=== PATIENT | female | born 1940 | race Caucasian/White ===

== ENCOUNTER 2018-02-17 14:40 | Inpatient (IN) | payer MEDICARE, OTHER ==
[~2018-02-17] VITALS: Ht 160 cm; Wt 63.5 kg
[2018-02-17 14:48] VITALS: BP 128/78
[2018-02-17] MEDS ORDERED: Morphine Sulfate 4mg/ml Inj IVP ONE (15:00)
--- NOTE | 2018-02-17 15:02 | Emergency Room Report ---
History of Present Illness General Chief Complaint: Vomiting Source: EMS Present Illness HPI Patient presents from nursing facility with reports of several vomiting episodes Patient is unfortunate patient with metastatic breast cancer Is DO NOT RESUSCITATE status Patient vomited 3 times throughout the day today brownish type material There is no complaints of diarrhea Patient herself essentially nods yes and no and does not answer further questions makes direct eye contact History of present illness is somewhat limited patient pointed to her epigastric discomfort when questioned regarding pain Allergies: Coded Allergies: PENICILLINS (Verified Allergy, Unknown, 02/17/18) Uncoded Allergies: SULFA (Allergy, Unknown, 02/17/18) Patient History Past Medical History: see triage record Pertinent Family History: none Reviewed Nursing Documentation: PMH: Agreed; PSxH: Agreed Nursing Documentation-PMH Hx Hypertension: Yes Hx Neurological Problems: Yes - schizo, bipolar Review of Systems All Other Systems: negative except mentioned in HPI Physical Exam Vital Signs Date Time Temp Pulse Resp B/P (MAP) Pulse Ox O2 Delivery O2 Flow Rate FiO2 02/17/18 14:34 98.2 92 16 128/78 94 Room Air 98.2 Sp02 EP Interpretation: reviewed, normal General Appearance: no apparent distress - However appears weak Head: normocephalic, atraumatic ENT: dry mucus membranes Neck: full range of motion, supple Respiratory: lungs clear Cardiovascular #1: regular rate, rhythm, no edema Gastrointestinal: non tender, soft Genitourinary: no CVA tenderness Musculoskeletal: other - Patient moves both upper extremities equally however does not follow commands and difficult to obtain full exam Neurologic: responsive - Patient makes eye contact appears to understand however is minimally verbal Skin: other - Poor skin turgor Lymphatic: no adenopathy Medical Decision Making Diagnostic Impression: Primary Impression: Vomiting Additional Impression: Dehydration ER Course Patient is a fairly complex patient with multiple differential to consideration including but not limited to cardiac cardiopulmonary and vascular emergencies Gastrointestinal pathology also entertained Patient somewhat difficult Pulling IVs out Trying to hit staff Patient did have x-rays obtained which did not show any obvious acute pathology white blood cell count was mildly elevated patient will require further inpatient care At this time difficult to obtain urine sample and will continue attempt as inpatient Labs Test 02/17/18 15:13 02/17/18 17:19 White Blood Count 14.3 K/UL (4.8-10.8) Red Blood Count 4.82 M/UL (4.20-5.40) Hemoglobin 15.6 G/DL (12.0-16.0) Hematocrit 44.2 % (37.0-47.0) Mean Corpuscular Volume 92 FL (80-99) Mean Corpuscular Hemoglobin 32.4 PG (27.0-31.0) Mean Corpuscular Hemoglobin Concent 35.3 G/DL (32.0-36.0) Red Cell Distribution Width 11.7 % (11.6-14.8) Platelet Count 384 K/UL (150-450) Mean Platelet Volume 6.7 FL (6.5-10.1) Neutrophils (%) (Auto) 76.4 % (45.0-75.0) Lymphocytes (%) (Auto) 15.5 % (20.0-45.0) Monocytes (%) (Auto) 6.8 % (1.0-10.0) Eosinophils (%) (Auto) 0.4 % (0.0-3.0) Basophils (%) (Auto) 1.0 % (0.0-2.0) Sodium Level 140 MMOL/L (136-145) Potassium Level 4.6 MMOL/L (3.5-5.1) Chloride Level 104 MMOL/L (98-107) Carbon Dioxide Level 25 MMOL/L (21-32) Anion Gap 11 mmol/L (5-15) Blood Urea Nitrogen 22 mg/dL (7-18) Creatinine 0.7 MG/DL (0.55-1.30) Estimat Glomerular Filtration Rate mL/min (>60) Glucose Level 109 MG/DL (74-106) Calcium Level 9.5 MG/DL (8.5-10.1) Total Bilirubin 0.3 MG/DL (0.2-1.0) Aspartate Amino Transf (AST/SGOT) 29 U/L (15-37) Alanine Aminotransferase (ALT/SGPT) 53 U/L (12-78) Alkaline Phosphatase 261 U/L (46-116) Total Creatine Kinase 62 U/L (26-308) Creatine Kinase MB 0.8 NG/ML (0.0-3.6) Creatine Kinase MB Relative Index 1.2 Troponin I 0.000 ng/mL (0.000-0.056) Total Protein 7.7 G/DL (6.4-8.2) Albumin 3.1 G/DL (3.4-5.0) Globulin 4.6 g/dL Albumin/Globulin Ratio 0.7 (1.0-2.7) Lipase 278 U/L (73-393) Urine Color Yellow Urine Appearance Slightly cloudy Urine pH 5 (4.5-8.0) Urine Specific [place] 1.020 (1.005-1.035) Urine Protein 2+ (NEGATIVE) Urine Glucose (UA) Negative (NEGATIVE) Urine Ketones 1+ (NEGATIVE) Urine Occult Blood 4+ (NEGATIVE) Urine Nitrite Negative (NEGATIVE) Urine Bilirubin Negative (NEGATIVE) Urine Urobilinogen 1 MG/DL (0.0-1.0) Urine Leukocyte Esterase 3+ (NEGATIVE) Urine RBC 5-10 /HPF (0 - 2) Urine WBC 10-15 /HPF (0 - 2) Urine Squamous Epithelial Cells Few /LPF (NONE/OCC) Urine Bacteria Few /HPF (NONE) Urine Mucus Moderate /LPF (NONE/OCC) EKG Diagnostic Results Rate: normal Rhythm: NSR ST Segments: no acute changes Rhythm Strip Diag. Results EP Interpretation: yes Rate: 77 Rhythm: NSR, no PVC's, no ectopy Chest X-Ray Diagnostic Results Chest X-Ray Diagnostic Results : Chest X-Ray Ordered: Yes # of Views/Limited/Complete: 1 View Indication: Chest Pain EP Interpretation: Yes Interpretation: no consolidation, no effusion, no pneumothorax Impression: No acute disease Electronically Signed by: Kyle Perry DO Other X-Ray Diagnostic Results Other X-Ray Diagnostic Results : X-Ray ordered: Abdominal ex # of Views/Limited Vs Complete: 2 View Indication: Pain EP Interpretation: Yes Interpretation: no dislocation, no soft tissue swelling, no fractures, nonspecific bowel gas Impression: No acute disease Electronically Signed by: Kyle Perry DO Last Vital Signs Date Time Temp Pulse Resp B/P (MAP) Pulse Ox O2 Delivery O2 Flow Rate FiO2 02/17/18 14:48 98.2 92 16 128/78 94 Room Air 98.2 Status: improved Disposition: ADMITTED INPATIENT Condition: Serious Kyle Perry DO Feb 17, 2018 15:02
[2018-02-17 15:31] LABS: EOSINOPHILS % (AUTO) 0.4 % (0.0-3.0); HEMATOCRIT 44.2 % (37.0-47.0); HEMOGLOBIN 15.6 G/DL (12.0-16.0); LYMPHOCYTES % (AUTO) 15.5 % (20.0-45.0); MEAN CORPUSCULAR VOLUME 92 FL (80-99); MONOCYTES % (AUTO) 6.8 % (1.0-10.0); NEUTROPHILS % (AUTO) 76.4 % (45.0-75.0); PLATELET COUNT 384 K/UL (150-450); RED BLOOD COUNT 4.82 M/UL (4.20-5.40); RED CELL DISTRIBUTION WIDTH 11.7 % (11.6-14.8); WHITE BLOOD COUNT 14.3 K/UL (4.8-10.8)
[2018-02-17 15:56] LABS: ANION GAP 11 mmol/L (5-15); BLOOD UREA NITROGEN 22 mg/dL (7-18); CALCIUM 9.5 MG/DL (8.5-10.1); CARBON DIOXIDE 25 MMOL/L (21-32); CHLORIDE 104 MMOL/L (98-107); CREATININE 0.7 MG/DL (0.55-1.30); POTASSIUM 4.6 MMOL/L (3.5-5.1); SODIUM 140 MMOL/L (136-145)
[2018-02-17 16:09] LABS: ALANINE AMINOTRANSFERASE 53 U/L (12-78); ALBUMIN 3.1 G/DL (3.4-5.0); ALBUMIN/GLOBULIN RATIO 0.7 (1.0-2.7); ALKALINE PHOSPHATASE 261 U/L (46-116); ASPARTATE AMINO TRANSFERASE 29 U/L (15-37); BILIRUBIN,TOTAL 0.3 MG/DL (0.2-1.0); CKMB 0.8 NG/ML (0.0-3.6); CREATINE KINASE 62 U/L (26-308)
[2018-02-17 17:22] VITALS: BP 124/76
--- NOTE | 2018-02-17 17:25 | Diagnostic Imaging Report ---
Indication: Abdominal pain Technique: Supine view of the abdomen Comparison: none Findings: Bowel gas pattern is unremarkable. There is a gastrostomy. There is bilateral hip hardware. Calcifications in the left side of the pelvis likely represent old degenerated fibroids. A surgical clip or T-fastener is seen in the mid abdomen, likely related to prior gastrostomy placement Impression: No acute process. Findings as noted
--- NOTE | 2018-02-17 17:26 | Diagnostic Imaging Report ---
Indication: Chest pain Technique: One view of the chest Comparison: none Findings: The lungs and pleural spaces are clear. Right hemidiaphragm is elevated. Surgical clips are seen in the right axilla. There is a right chest port catheter, tip projecting at level of the innominate venous confluence. Impression: No acute process. Findings as noted
[2018-02-17 17:36] LABS: APPEARANCE,URINE SLIGHTLY CLOUDY; BILIRUBIN, URINE NEGATIVE (NEGATIVE); GLUCOSE, URINE (UA) NEGATIVE (NEGATIVE); KETONES,URINE 1+ (NEGATIVE); LEUKOCYTE ESTERASE ,URINE 3+ (NEGATIVE); NITRITE,URINE NEGATIVE (NEGATIVE); PH,URINE 5 (4.5-8.0); PROTEIN,URINE 2+ (NEGATIVE); UROBILINOGEN,URINE 1 MG/DL (0.0-1.0)
[2018-02-17 17:41] LABS: COLOR,URINE YELLOW
[2018-02-17] MEDS ORDERED: NEURONTIN100 MG ORAL (17:41)
[2018-02-17] MEDS ORDERED: COLACE100 MG GT (17:41)
[2018-02-17] MEDS ORDERED: FLEET ENEMA133 ML RECTAL (17:41)
[2018-02-17] MEDS ORDERED: ARICEPT10 MG GT (17:41)
[2018-02-17] MEDS ORDERED: TYLENOL EXTRA500 MG GT (17:41)
[2018-02-17] MEDS ORDERED: ACETAMINOPHEN325 M1 ORAL (17:41)
[2018-02-17] MEDS ORDERED: MILK OF MA400 MG/51 GT (17:41)
[2018-02-17] MEDS ORDERED: MULTIVITAMINS1 EAC2 GT (17:41)
[2018-02-17 17:45] VITALS: BP 120/78
[2018-02-17 19:00] VITALS: BP 109/69
[2018-02-17 20:17] VITALS: BP 109/68
[2018-02-17] MEDS: Heparin 5000 units/ml inj SUBQ SCH (23:18)
[2018-02-17] MEDS: 1/2NS w/KCl 20mEq 1000ml 1,000 ML IV SCH (23:19)
[2018-02-18 07:18] LABS: BASOPHILS % (AUTO) 0.8 % (0.0-2.0); EOSINOPHILS % (AUTO) 0.5 % (0.0-3.0); HEMATOCRIT 42.8 % (37.0-47.0); HEMOGLOBIN 14.6 G/DL (12.0-16.0); LYMPHOCYTES % (AUTO) 14.3 % (20.0-45.0); MEAN CORPUSCULAR VOLUME 94 FL (80-99); MONOCYTES % (AUTO) 7.8 % (1.0-10.0); NEUTROPHILS % (AUTO) 76.6 % (45.0-75.0); PLATELET COUNT 391 K/UL (150-450); RED BLOOD COUNT 4.57 M/UL (4.20-5.40); RED CELL DISTRIBUTION WIDTH 11.4 % (11.6-14.8); WHITE BLOOD COUNT 11.3 K/UL (4.8-10.8)
[2018-02-18 07:43] LABS: ANION GAP 7 mmol/L (5-15); BLOOD UREA NITROGEN 22 mg/dL (7-18); CALCIUM 9.3 MG/DL (8.5-10.1); CARBON DIOXIDE 29 MMOL/L (21-32); CHLORIDE 107 MMOL/L (98-107); CREATININE 0.9 MG/DL (0.55-1.30); POTASSIUM 4.1 MMOL/L (3.5-5.1); SODIUM 143 MMOL/L (136-145)
--- NOTE | 2018-02-18 08:45 | History and Physical Report ---
DATE OF ADMISSION: 02/17/2018 CHIEF COMPLAINT: Vomiting. HISTORY OF PRESENT ILLNESS: This is a 77-year-old female from [facility], who has history of metastatic breast cancer and is a DNR. The patient in fact was on hospice for almost two years. Despite that, the patient has been surviving. The patient started having a coffee-ground emesis 3 times. She is transferred to this hospital for further evaluation and management. PAST MEDICAL HISTORY: 1. Metastatic breast cancer. 2. Extreme cachexia secondary to the above. 3. History of a stage IV sacral ulcer. 4. Anxiety disorder. 5. Gastroesophageal reflux disease. 6. Status post G-tube. 7. Bipolar disorder. 8. Hypertensive cardiovascular disease. MEDICATIONS: Aricept, Colace, Fleet enema p.r.n., milk of magnesia, multivitamins, Neurontin, and Tylenol p.r.n. ALLERGIES: No known drug allergies. FAMILY HISTORY: Unable to obtain secondary to mental status. SOCIAL HISTORY: Unable to obtain secondary to mental status REVIEW OF SYSTEMS: Unable to obtain secondary to mental status. PHYSICAL EXAMINATION: GENERAL: This is an elderly cachectic female, who is in no acute distress. VITAL SIGNS: Blood pressure 109/68, pulse 83, respirations 20, and temperature 98 axillary. HEENT: The head is normocephalic and atraumatic. Pupils are equal, round, and reactive to light and accommodation consensually. NECK: Supple. Trachea midline. There was no lymphadenopathy or thyromegaly. LUNGS: Clear to auscultation and percussion. BREASTS: She has left breast lump. ABDOMEN: Scaphoid, soft, and nontender. She has a G-tube. EXTREMITIES: She has contractures in all joints. She has advanced muscle wasting. NEUROLOGIC: She is alert and responsive. She is confused. There were no lateralizing signs. LABORATORY AND ANCILLARY DATA: CBC shows white count on admission 14,300, today 11,300, hematocrit stable, on admission 44 and today 42, and platelet count 391,000. Chemistries essentially within normal limits except alkaline phosphatase 261. Albumin on admission was 3.1. IMAGING REPORTS: Abdominal x-ray, no acute finding. ASSESSMENT: 1. Nausea and vomiting with the coffee-grounds emesis most likely due to gastritis. 2. Metastatic breast cancer. 3. Extreme cachexia secondary to the above. 4. History of a stage IV sacral ulcer. 5. Anxiety disorder. 6. Gastroesophageal reflux disease. 7. Status post G-tube. 8. Bipolar disorder. 9. Hypertensive cardiovascular disease. PLAN: 1. Keep NPO. 2. GI consult. 3. PPI. 4. Keep on intravenous fluids. 5. Keep DNR status. Kai Ramírez M.D. DR: FORREST JOB#: [id number] CC:
[2018-02-18] MEDS ORDERED: Pantoprazole Inj IVP SCH (09:00)
[2018-02-18] MEDS: Heparin 5000 units/ml inj SUBQ SCH ×2 (09:37→22:09)
--- NOTE | 2018-02-18 11:16 | GI Initial Consult Note ---
History of Present Illness General Date patient seen: Feb 18, 2018 Time patient seen: 11:00 Reason for Hospitalization: Vomiting Referring physician: AGUILAR DESOUZA Reason for Consultation: N/V Present Illness HPI Patient presents from nursing facility with reports of several vomiting episodes Patient is unfortunate patient with metastatic breast cancer Is DO NOT RESUSCITATE status Patient vomited 3 times throughout the day today brownish type material There is no complaints of diarrhea Patient herself essentially nods yes and no and does not answer further questions makes direct eye contact History of present illness is somewhat limited patient pointed to her epigastric discomfort when questioned regarding pain GI consulted for N/V, reports of coffee ground emesis. ROS limited, psychiatric history. Pt seen, awake alert NAD with no active s/sx of N/V/D. KUB negative. I performed a gastric lavage at bedside, negative. Patient G Tube dependent. Home Meds Reported Medications Acetaminophen* (ACETAMINOPHEN 325MG TABLET*) 325 Mg Tablet, 650 MG ORAL Q4H PRN for Mild Pain (Pain Scale 1-3), TAB 02/17/18 Acetaminophen* (TYLENOL EXTRA STRENGTH*) 500 Mg Tablet, 1000 MG GT Q4HR PRN for Mild Pain/Temp > 100.5, TAB 0 Refills 02/17/18 Gabapentin* (NEURONTIN*) 100 Mg Capsule, 200 MG ORAL BID, CAP 02/17/18 Multivitamins* (MULTIVITAMINS*) 1 Each Tablet, 1 TAB GT DAILY, TAB 0 Refills 02/17/18 Magnesium Hydroxide* (MILK OF MAGNESIA*) 400 Mg/5 Ml Oral.susp, 30 ML GT DAILY PRN for Constipation, ML 02/17/18 Na Phos,M-B/Na Phos,Di-Ba* (FLEET ENEMA*) 133 Ml Enema, 133 ML RECTAL DAILY PRN for Constipation, ML 0 Refills 02/17/18 Docusate Sodium* (COLACE*) 100 Mg Capsule, 100 MG GT TWICE A DAY, CAP 02/17/18 Donepezil Hcl* (ARICEPT*) 10 Mg Tablet, 10 MG GT DAILY, TAB 02/17/18 Med list reviewed/reconciled: Yes Allergies: Coded Allergies: PENICILLINS (Verified Allergy, Unknown, 02/17/18) Uncoded Allergies: SULFA (Allergy, Unknown, 02/17/18) Patient History Limited by: medical condition History Provided By: Medical Record PMH Narrative Past Medical History: see triage record Pertinent Family History: none Reviewed Nursing Documentation: PMH: Agreed; PSxH: Agreed Nursing Documentation-PMH Hx Hypertension: Yes Hx Neurological Problems: Yes - schizo, bipolar Review of Systems All Other Systems: limited Physical Exam Vital Signs Date Time Temp Pulse Resp B/P (MAP) Pulse Ox O2 Delivery O2 Flow Rate FiO2 02/17/18 14:34 98.2 92 16 128/78 94 Room Air 98.2 Sp02 EP Interpretation: reviewed, normal Labs Laboratory Tests Test 02/17/18 15:13 02/17/18 17:19 02/18/18 05:50 White Blood Count 14.3 K/UL (4.8-10.8) H 11.3 K/UL (4.8-10.8) H Red Blood Count 4.82 M/UL (4.20-5.40) 4.57 M/UL (4.20-5.40) Hemoglobin 15.6 G/DL (12.0-16.0) 14.6 G/DL (12.0-16.0) Hematocrit 44.2 % (37.0-47.0) 42.8 % (37.0-47.0) Mean Corpuscular Volume 92 FL (80-99) 94 FL (80-99) Mean Corpuscular Hemoglobin 32.4 PG (27.0-31.0) H 32.0 PG (27.0-31.0) H Mean Corpuscular Hemoglobin Concent 35.3 G/DL (32.0-36.0) 34.1 G/DL (32.0-36.0) Red Cell Distribution Width 11.7 % (11.6-14.8) 11.4 % (11.6-14.8) L Platelet Count 384 K/UL (150-450) 391 K/UL (150-450) Mean Platelet Volume 6.7 FL (6.5-10.1) 7.3 FL (6.5-10.1) Neutrophils (%) (Auto) 76.4 % (45.0-75.0) H 76.6 % (45.0-75.0) H Lymphocytes (%) (Auto) 15.5 % (20.0-45.0) L 14.3 % (20.0-45.0) L Monocytes (%) (Auto) 6.8 % (1.0-10.0) 7.8 % (1.0-10.0) Eosinophils (%) (Auto) 0.4 % (0.0-3.0) 0.5 % (0.0-3.0) Basophils (%) (Auto) 1.0 % (0.0-2.0) 0.8 % (0.0-2.0) Sodium Level 140 MMOL/L (136-145) 143 MMOL/L (136-145) Potassium Level 4.6 MMOL/L (3.5-5.1) 4.1 MMOL/L (3.5-5.1) Chloride Level 104 MMOL/L (98-107) 107 MMOL/L (98-107) Carbon Dioxide Level 25 MMOL/L (21-32) 29 MMOL/L (21-32) Anion Gap 11 mmol/L (5-15) 7 mmol/L (5-15) Blood Urea Nitrogen 22 mg/dL (7-18) H 22 mg/dL (7-18) H Creatinine 0.7 MG/DL (0.55-1.30) 0.9 MG/DL (0.55-1.30) Estimat Glomerular Filtration Rate mL/min (>60) mL/min (>60) Glucose Level 109 MG/DL (74-106) H 98 MG/DL (74-106) Calcium Level 9.5 MG/DL (8.5-10.1) 9.3 MG/DL (8.5-10.1) Total Bilirubin 0.3 MG/DL (0.2-1.0) Aspartate Amino Transf (AST/SGOT) 29 U/L (15-37) Alanine Aminotransferase (ALT/SGPT) 53 U/L (12-78) Alkaline Phosphatase 261 U/L (46-116) H Total Creatine Kinase 62 U/L (26-308) Creatine Kinase MB 0.8 NG/ML (0.0-3.6) Creatine Kinase MB Relative Index 1.2 Troponin I 0.000 ng/mL (0.000-0.056) Total Protein 7.7 G/DL (6.4-8.2) Albumin 3.1 G/DL (3.4-5.0) L Globulin 4.6 g/dL Albumin/Globulin Ratio 0.7 (1.0-2.7) L Lipase 278 U/L (73-393) Urine Color Yellow Urine Appearance Slightly cloudy Urine pH 5 (4.5-8.0) Urine Specific [place] 1.020 (1.005-1.035) Urine Protein 2+ (NEGATIVE) H Urine Glucose (UA) Negative (NEGATIVE) Urine Ketones 1+ (NEGATIVE) H Urine Occult Blood 4+ (NEGATIVE) H Urine Nitrite Negative (NEGATIVE) Urine Bilirubin Negative (NEGATIVE) Urine Urobilinogen 1 MG/DL (0.0-1.0) H Urine Leukocyte Esterase 3+ (NEGATIVE) H Urine RBC 5-10 /HPF (0 - 2) H Urine WBC 10-15 /HPF (0 - 2) H Urine Squamous Epithelial Cells Few /LPF (NONE/OCC) Urine Bacteria Few /HPF (NONE) Urine Mucus Moderate /LPF (NONE/OCC) H Magnesium Level 2.1 MG/DL (1.8-2.4) General Appearance: well appearing, no apparent distress, alert Head: normocephalic EENT: PERRL/EOMI, normal ENT inspection Neck: supple Respiratory: normal breath sounds, no respiratory distress Cardiovascular: normal rate Gastrointestinal: normal inspection, non tender, soft, normal bowel sounds, non -distended, gt - c/d/i Rectal: deferred Genitourinary: no CVA tenderness Musculoskeletal: normal inspection, back normal Skin: normal inspection, normal color, no rash, warm/dry, palpation normal, well hydrated Lymphatic: normal inspection, no adenopathy Current Medications Current Medications Medications (Trade) Dose Ordered Sig/Kel Route PRN Reason Start Time Stop Time Status Last Admin Dose Admin Heparin Sodium (Porcine) (Heparin 5000 units/ml) 5,000 units EVERY 12 HOURS SUBQ 02/17/18 22:30 03/19/18 22:29 02/18/18 09:37 Ondansetron HCl (Zofran) 4 mg Q6H PRN IVP Nausea & Vomiting 02/17/18 22:00 03/19/18 21:59 Pantoprazole (Protonix) 40 mg DAILY IVP 02/18/18 09:00 03/20/18 08:59 02/18/18 09:32 Sodium 1,000 ml @ 75 mls/hr [id number] IV 02/17/18 22:00 03/19/18 21:59 02/17/18 23:19 GI: Plan Problems: (1) Severe malnutrition (2) G tube feedings (3) Coffee ground emesis (4) Dehydration (5) Vomiting Plan GTF dependent gastric lavage done at bedside to r/o any UGIB >> negative stable H&H supportive care low dose reglan 5mg ATC okay to resume feedings per RD ppi daily zofran prn IV hydration + electrolyte correction fu labs Discussed with Dr. John. Thank you for this patient referral, we will follow. The patient was seen and examined at bedside and all new and available data was reviewed in the patients chart. I agree with the above findings, impression and plan. (Patient seen earlier today. Signature stamp does not reflect patient encounter time.). - MD Luann [facility] SENIOR ANALYST DEVELOPER Feb 18, 2018 11:16
[2018-02-18] MEDS: 1/2NS w/KCl 20mEq 1000ml 1,000 ML IV SCH (13:18)
[2018-02-18] MEDS: Metoclopramide 10mg/2ml Inj IVP SCH ×2 (14:24→22:08)
--- NOTE | 2018-02-18 16:56 | Cardiology Report ---
APPROVED REPORT EKG Measurement Heart [id number] ID [id number] Sinus tachycardia with premature atrial complexes Left axis deviation Inferior infarct, age undetermined Anterior infarct, age undetermined Abnormal ECG
[2018-02-18] MEDS: Pantoprazole Inj IVP SCH (18:33)
[2018-02-18 20:00] VITALS: BP 150/96
[2018-02-19] VITALS: BP 140/76
[2018-02-19] MEDS: 1/2NS w/KCl 20mEq 1000ml 1,000 ML IV SCH ×2 (01:00→14:16)
[2018-02-19 04:00] VITALS: BP 149/84
[2018-02-19] MEDS: Metoclopramide 10mg/2ml Inj IVP SCH ×2 (06:00→14:17)
[2018-02-19 08:00] VITALS: BP 117/74
--- NOTE | 2018-02-19 08:30 | General Progress Note ---
Assessment/Plan Problem List: (1) Vomiting ICD Codes: R11.10 - Vomiting, unspecified SNOMED: 334498327 (2) Dehydration ICD Codes: E86.0 - Dehydration SNOMED: 48920632 (3) Severe malnutrition ICD Codes: E43 - Unspecified severe protein-calorie malnutrition SNOMED: 21127634 (4) Coffee ground emesis ICD Codes: K92.0 - Hematemesis SNOMED: 75244038, 818076161 (5) G tube feedings ICD Codes: Z93.1 - Gastrostomy status SNOMED: 495769943, 003010544 Assessment/Plan GTF local GT care ppi stable H&H hold GI procedures for now reglan will change the GT today or tomorrow Subjective ROS Limited/Unobtainable: No Allergies: Coded Allergies: PENICILLINS (Verified Allergy, Unknown, 02/17/18) Uncoded Allergies: SULFA (Allergy, Unknown, 02/17/18) Objective Last 24 Hour Vital Signs Date Time Temp Pulse Resp B/P (MAP) Pulse Ox O2 Delivery O2 Flow Rate FiO2 02/19/18 04:00 97.4 104 21 149/84 (105) 97 97.4 02/19/18 00:00 98.1 103 19 140/76 (97) 97 98.1 02/18/18 21:00 Room Air 02/18/18 20:00 98.4 106 20 150/96 (114) 98 98.4 02/18/18 09:00 Room Air Intake and Output 02/18/18 02/19/18 19:00 07:00 Intake Total 450 ml 1330 ml Balance 450 ml 1330 ml Intake Free Water 30 ml 100 ml IV Total 375 ml 950 ml Tube Feeding 45 ml 280 ml # Voids 3 # Bowel Movements 2 Height (Feet): 5 Height (Inches): 3.00 Weight (Pounds): 140 General Appearance: no apparent distress EENT: normal ENT inspection Neck: supple Cardiovascular: normal rate Respiratory/Chest: decreased breath sounds Abdomen: normal bowel sounds, non tender, soft Extremities: non-tender Hugo John MD Feb 19, 2018 08:30
[2018-02-19] MEDS: Pantoprazole Inj IVP SCH ×2 (08:44→18:02)
[2018-02-19] MEDS: Heparin 5000 units/ml inj SUBQ SCH ×2 (08:45→20:29)
[2018-02-19 11:27] LABS: BASOPHILS % (AUTO) 0.8 % (0.0-2.0); EOSINOPHILS % (AUTO) 1.4 % (0.0-3.0); HEMATOCRIT 40.1 % (37.0-47.0); HEMOGLOBIN 13.4 G/DL (12.0-16.0); LYMPHOCYTES % (AUTO) 23.8 % (20.0-45.0); MEAN CORPUSCULAR VOLUME 95 FL (80-99); MONOCYTES % (AUTO) 3.7 % (1.0-10.0); NEUTROPHILS % (AUTO) 70.4 % (45.0-75.0); PLATELET COUNT 414 K/UL (150-450); RED BLOOD COUNT 4.22 M/UL (4.20-5.40); RED CELL DISTRIBUTION WIDTH 11.6 % (11.6-14.8); WHITE BLOOD COUNT 10.4 K/UL (4.8-10.8)
[2018-02-19 11:35] LABS: ANION GAP 9 mmol/L (5-15); BLOOD UREA NITROGEN 19 mg/dL (7-18); CALCIUM 9.1 MG/DL (8.5-10.1); CARBON DIOXIDE 25 MMOL/L (21-32); CHLORIDE 104 MMOL/L (98-107); CREATININE 0.9 MG/DL (0.55-1.30); POTASSIUM 4.4 MMOL/L (3.5-5.1); SODIUM 138 MMOL/L (136-145)
[2018-02-19 11:40] VITALS: BP 122/81
--- NOTE | 2018-02-19 12:51 | General Progress Note ---
Assessment/Plan Assessment/Plan N+V - symptomatic Rx. Subjective Allergies: Coded Allergies: PENICILLINS (Verified Allergy, Unknown, 02/17/18) Uncoded Allergies: SULFA (Allergy, Unknown, 02/17/18) Subjective Confused Objective Last 24 Hour Vital Signs Date Time Temp Pulse Resp B/P (MAP) Pulse Ox O2 Delivery O2 Flow Rate FiO2 02/19/18 11:40 97.7 90 20 122/81 (95) 97 97.7 02/19/18 09:00 Room Air 02/19/18 08:00 96.1 86 20 117/74 (88) 98 96.1 02/19/18 04:00 97.4 104 21 149/84 (105) 97 97.4 02/19/18 00:00 98.1 103 19 140/76 (97) 97 98.1 02/18/18 21:00 Room Air 02/18/18 20:00 98.4 106 20 150/96 (114) 98 98.4 Intake and Output 02/18/18 02/19/18 19:00 07:00 Intake Total 450 ml 1330 ml Balance 450 ml 1330 ml Intake Free Water 30 ml 100 ml IV Total 375 ml 950 ml Tube Feeding 45 ml 280 ml # Voids 3 # Bowel Movements 2 Laboratory Tests 02/19/18 10:30: White Blood Count 10.4, Red Blood Count 4.22, Hemoglobin 13.4, Hematocrit 40.1, Mean Corpuscular Volume 95, Mean Corpuscular Hemoglobin 31.8H, Mean Corpuscular Hemoglobin Concent 33.4, Red Cell Distribution Width 11.6, Platelet Count 414, Mean Platelet Volume 5.9L, Neutrophils (%) (Auto) 70.4, Lymphocytes (%) (Auto) 23.8, Monocytes (%) (Auto) 3.7, Eosinophils (%) (Auto) 1.4, Basophils (%) (Auto ) 0.8, Sodium Level 138, Potassium Level 4.4, Chloride Level 104, Carbon Dioxide Level 25, Anion Gap 9, Blood Urea Nitrogen 19H, Creatinine 0.9, Estimat Glomerular Filtration Rate , Glucose Level 112H, Calcium Level 9.1, Phosphorus Level 3.2, Magnesium Level 2.0 Height (Feet): 5 Height (Inches): 3.00 Weight (Pounds): 140 Objective Cachectic. Cv RR Lungs CTa abd SNT. BS + E No CCE Kai Ramírez MD Feb 19, 2018 12:51
[2018-02-19 15:33] VITALS: BP 137/79
[2018-02-19 19:58] VITALS: BP 126/82
[2018-02-19] MEDS: Metoclopramide 10mg/10ml Liq GT SCH (21:34)
[2018-02-20] VITALS: BP 136/78
[2018-02-20 04:00] VITALS: BP 138/89
[2018-02-20] MEDS: Metoclopramide 10mg/10ml Liq GT SCH ×2 (05:33→13:20)
[2018-02-20 08:00] VITALS: BP 142/63
--- NOTE | 2018-02-20 08:18 | General Progress Note ---
Assessment/Plan Problem List: (1) Vomiting ICD Codes: R11.10 - Vomiting, unspecified SNOMED: 284947162 (2) Dehydration ICD Codes: E86.0 - Dehydration SNOMED: 59413617 (3) Severe malnutrition ICD Codes: E43 - Unspecified severe protein-calorie malnutrition SNOMED: 93704795 (4) Coffee ground emesis ICD Codes: K92.0 - Hematemesis SNOMED: 60471581, 019539995 (5) G tube feedings ICD Codes: Z93.1 - Gastrostomy status SNOMED: 322746895, 444962905 Assessment/Plan GTF local care ppi stable H&H hold GI procedures for now reglan Subjective ROS Limited/Unobtainable: No Allergies: Coded Allergies: PENICILLINS (Verified Allergy, Unknown, 02/17/18) Uncoded Allergies: SULFA (Allergy, Unknown, 02/17/18) Objective Last 24 Hour Vital Signs Date Time Temp Pulse Resp B/P (MAP) Pulse Ox O2 Delivery O2 Flow Rate FiO2 02/20/18 08:03 Room Air 02/20/18 04:00 98.4 100 20 138/89 (105) 94 98.4 02/20/18 00:00 98.9 93 18 136/78 (97) 95 98.9 02/19/18 21:00 Room Air 02/19/18 19:58 99.0 92 19 126/82 (97) 94 99.0 02/19/18 15:33 98.4 99 20 137/79 (98) 98 98.4 02/19/18 11:40 97.7 90 20 122/81 (95) 97 97.7 02/19/18 09:00 Room Air Intake and Output 02/19/18 02/20/18 19:00 07:00 Intake Total 1125 ml 595 ml Balance 1125 ml 595 ml Intake Free Water 100 ml 100 ml IV Total 525 ml Tube Feeding 500 ml 495 ml # Voids 3 4 # Bowel Movements 2 Laboratory Tests 02/19/18 10:30: White Blood Count 10.4, Red Blood Count 4.22, Hemoglobin 13.4, Hematocrit 40.1, Mean Corpuscular Volume 95, Mean Corpuscular Hemoglobin 31.8H, Mean Corpuscular Hemoglobin Concent 33.4, Red Cell Distribution Width 11.6, Platelet Count 414, Mean Platelet Volume 5.9L, Neutrophils (%) (Auto) 70.4, Lymphocytes (%) (Auto) 23.8, Monocytes (%) (Auto) 3.7, Eosinophils (%) (Auto) 1.4, Basophils (%) (Auto ) 0.8, Sodium Level 138, Potassium Level 4.4, Chloride Level 104, Carbon Dioxide Level 25, Anion Gap 9, Blood Urea Nitrogen 19H, Creatinine 0.9, Estimat Glomerular Filtration Rate , Glucose Level 112H, Calcium Level 9.1, Phosphorus Level 3.2, Magnesium Level 2.0 Height (Feet): 5 Height (Inches): 3.00 Weight (Pounds): 140 General Appearance: no apparent distress EENT: normal ENT inspection Neck: supple Cardiovascular: normal rate Respiratory/Chest: decreased breath sounds Abdomen: normal bowel sounds, non tender, soft Extremities: non-tender Hugo John MD Feb 20, 2018 08:18
[2018-02-20] MEDS: Heparin 5000 units/ml inj SUBQ SCH (08:44)
[2018-02-20 12:00] VITALS: BP 133/75
--- NOTE | 2018-02-20 12:26 | General Progress Note ---
Assessment/Plan Assessment/Plan N+V - symptomatic Rx. OK for SNF Subjective Allergies: Coded Allergies: PENICILLINS (Verified Allergy, Unknown, 02/17/18) Uncoded Allergies: SULFA (Allergy, Unknown, 02/17/18) Subjective Confused Objective Last 24 Hour Vital Signs Date Time Temp Pulse Resp B/P (MAP) Pulse Ox O2 Delivery O2 Flow Rate FiO2 02/20/18 08:03 Room Air 02/20/18 08:00 97.5 95 20 142/63 (89) 95 97.5 02/20/18 04:00 98.4 100 20 138/89 (105) 94 98.4 02/20/18 00:00 98.9 93 18 136/78 (97) 95 98.9 02/19/18 21:00 Room Air 02/19/18 19:58 99.0 92 19 126/82 (97) 94 99.0 02/19/18 15:33 98.4 99 20 137/79 (98) 98 98.4 Intake and Output 02/19/18 02/20/18 19:00 07:00 Intake Total 1125 ml 640 ml Balance 1125 ml 640 ml Intake Free Water 100 ml 100 ml IV Total 525 ml Tube Feeding 500 ml 540 ml # Voids 3 4 # Bowel Movements 2 Height (Feet): 5 Height (Inches): 3.00 Weight (Pounds): 140 Objective Cachectic. Cv RR Lungs CTa abd SNT. BS + E No CCE Kai Ramírez MD Feb 20, 2018 12:26
[2018-02-20] MEDS ORDERED: LANSOPRAZOLE30 MG GT (12:30)
[2018-02-20] MEDS ORDERED: ZOFRAN 4 MG4 MG/2 ML IVP (12:30)
--- NOTE | 2018-02-21 14:45 | Discharge Summary ---
Discharge Summary Discharge Summary _ DATE OF ADMISSION: 02/17/2018 DATE OF DISCHARGE: 02/20/2018 REASON FOR ADMISSION: 77 years old female, resident of [facility] ,with past medical history significant for metastatic breast cancer, extreme cachexia, anxiety disorder, GERD, status post G-tube, bipolar disorder, hypertensive cardiovascular disease, DNR/DNI status, presented from the [facility] with coffee-ground emesis 3. Upon evaluation vital signs were stable. Abdominal x-ray revealed no acute findings. WBC 14.3, stable hemoglobin and hematocrit Elevated alkaline phosphatase 261. Albumin 3.1 Patient admitted with diagnoses of nausea and vomiting with coffee-ground emesis,most likely secondary to gastritis; metastatic breast cancer; extreme cachexia; anxiety disorder; GERD; status post G-tube; bipolar disorder; hypertensive cardiovascular disease. CONSULTANTS: GI specialist dr. John [facility] COURSE: Patient admitted. Patient started on the IV fluids. Patient kept nothing by mouth. Patient started on PPI. GI consult was requested. Antiemetic provided as needed. GI specialist seen and evaluated the patient. Gastric lavage was done at the bedside to rule out upper GI bleeding, and was negative. Hemoglobin and hematocrit remained stable. Patient started on low dose of Reglan [id number]. Patient continued on PPI. GI cleared to start tube feeding as per of registered respiratory therapist recommendations . IV hydration was continued. Electrolytes and renal parameters were closely monitored, electrolytes corrected as needed. Nephrotoxins were avoided. G-tube site care provided. Per GI specialist, hold GI procedure at this time. Dietary recommendations implemented in plan of care to improve nutritional support. Strict aspiration/ reflux reflux precautions were maintained. Patient clinically improved, no further vomiting episodes. Laboratory work remained stable, leukocytosis resolved. Patient was stable for discharge back to [facility] FINAL DIAGNOSES: Nausea and vomiting with coffee-ground emesis , most likely due to gastritis Dehydration Severe protein calorie malnutrition G-tube feeding Coffee-ground emesis Metastatic breast cancer Anxiety disorder Gastroesophageal reflux disease Hypertensive cardiovascular disease DISCHARGE MEDICATIONS: See Medication Reconciliation list. DISCHARGE INSTRUCTIONS: Patient was discharged to [facility] I have been assigned to dictate discharge summary for this account. I was not involved in the patient's management. Loulou Agustin NP Feb 21, 2018 14:45
== END 2018-02-20 16:56 | DRG 391 ==
LOC: EDBD 14:40 → EMR 16:20 → 4W 16:48 → EDBEDREQ 17:30
DX: K29.70 Gastritis, unspecified, without bleeding (principal); E43 Unspecified severe protein-calorie malnutrition; Z43.1 Encounter for attention to gastrostomy; C79.9 Secondary malignant neoplasm of unspecified site; E86.0 Dehydration; C50.919 Malignant neoplasm of unspecified site of unspecified female breast; F41.9 Anxiety disorder, unspecified; K21.9 Gastro-esophageal reflux disease without esophagitis; I11.9 Hypertensive heart disease without heart failure; Z66 Do not resuscitate; Z88.0 Allergy status to penicillin; Z88.2 Allergy status to sulfonamides; F20.9 Schizophrenia, unspecified; F31.9 Bipolar disorder, unspecified; R11.10 Vomiting, unspecified
CPT/HCPCS: 36415; 71045; 74018; 80048; 80053; 81003; 82550; 82553; 83690; 83735; 84100; 84484; 85025; 87040; 87081; 87086; 93005; 99285; J2405; J2765

== ENCOUNTER 2018-10-02 14:41 | Emergency (ER) | payer MEDICARE, OTHER ==
[~2018-10-02] VITALS: Ht 152.4 cm; Wt 59.0 kg
[~2018-10-02 14:41] MED LIST: ACETAMINOPHEN325 M1 ORAL; ARICEPT10 MG GT; COLACE100 MG GT; FLEET ENEMA133 ML RECTAL; LANSOPRAZOLE30 MG GT; MILK OF MA400 MG/51 GT; MULTIVITAMINS1 EAC2 GT; NEURONTIN100 MG ORAL; TYLENOL EXTRA500 MG GT; ZOFRAN 4 MG4 MG/2 ML IVP
--- NOTE | 2018-10-02 14:47 | Emergency Room Report ---
History of Present Illness General Chief Complaint: General Complaint Source: Patient, EMS Present Illness HPI Patient is a 77-year-old female who presented after peripherally inserted central catheter. Patient prior history of ascending cholangitis which she was currently being treated with IV antibiotics. Patient had not been febrile. Patient denies any current complaints. Patient's nursing staff had noticed the IV missing this morning.Patient denies any vomiting or current complaints. History is limited by poor historian. Allergies: Coded Allergies: PENICILLINS (Verified Allergy, Unknown, 02/17/18) SULFA (SULFONAMIDE ANTIBIOTICS) (Unverified Allergy, Unknown, 10/02/18) Uncoded Allergies: SULFA (Allergy, Unknown, 02/17/18) Patient History Past Medical History: see triage record Reviewed Nursing Documentation: PMH: Agreed; PSxH: Agreed Nursing Documentation-PMH Hx Hypertension: Yes Hx Neurological Problems: Yes - schizo, bipolar Review of Systems All Other Systems: negative except mentioned in HPI Physical Exam Vital Signs Date Time Temp Pulse Resp B/P (MAP) Pulse Ox O2 Delivery O2 Flow Rate FiO2 10/02/18 14:29 98.1 85 28 98/63 97 Room Air General Appearance: well appearing, no apparent distress, alert, GCS 15 Head: normocephalic, atraumatic ENT: hearing grossly normal, normal voice Neck: full range of motion, supple Respiratory: no respiratory distress, speaking full sentences Gastrointestinal: normal inspection, other - gastrostomy tube Musculoskeletal: no calf tenderness Neurologic: normal inspection, alert, responsive Psychiatric: mood/affect normal Skin: no rash Medical Decision Making Diagnostic Impression: Primary Impression: Antibiotic long-term use ER Course Patient presented after IV was accidentally removed. Patient does not appear to have any acute complaints at this time. Patient is fed by G-tube. Peripheral IV was placed.Patient will be sent back to her nursing facility. Patient has a benign exam and does not appear to require any further imaging or laboratory testing at this time Patient will be sent back to her nursing facility for further IV antibiotics. patient does not appear to have any evidence of sepsis at this time. Last Vital Signs Date Time Temp Pulse Resp B/P (MAP) Pulse Ox O2 Delivery O2 Flow Rate FiO2 10/02/18 14:29 98.1 85 28 98/63 97 Room Air Status: improved Disposition: HOME, SELF-CARE Condition: Stable Ayan Nj MD Oct 02, 2018 14:47
[2018-10-02 14:55] VITALS: BP 102/63
--- NOTE | 2018-10-02 14:55 | NUR ---
ED Nurse Note: Pt brought in by [facility] ambulance with reports of pulling out her PICC line this morning. Pt had PICC for antibiotic adminstration; Vancomycin. Pt hasn't received morning antibiotic dose. will cont monitor.
[2018-10-02] MEDS ORDERED: VANCOMYCIN500 MG/100 IV (15:07)
[2018-10-02] MEDS ORDERED: ZINC SULFATE220 M1 ORAL (15:07)
[2018-10-02] MEDS ORDERED: OMEPRAZOLE20 M2 ORAL (15:07)
[2018-10-02] MEDS ORDERED: ASCORBIC ACID500 MG ORAL (15:07)
[2018-10-02] MEDS ORDERED: SENNA8.6 M2 PO (15:07)
--- NOTE | 2018-10-02 15:21 | NUR ---
ED Nurse Note: iv inserted by RN Ronit, 20g on right forearm. patent and intact, dressing applied.
--- NOTE | 2018-10-02 15:45 | NUR ---
ED Nurse Note: called facility and gave report to Crnp Jessika. ambulance eta about 1hr +
[2018-10-02 16:30] VITALS: BP 108/52
--- NOTE | 2018-10-02 16:30 | NUR ---
ED Nurse Note: pt cleared to be d/c per ERMD, iv site intact and patent, summary of care and discharge paperwork given to electroplating worker from ambulance, pt has no belongings, vss, airway intact, resp even and unlabored on RA. endorsed care to EMT and report given.
== END 2018-10-02 16:30 ==
LOC: EDSEX 14:41 → EDBD 14:41 → EMR 15:10
DX: Z45.2 Encounter for adjustment and management of vascular access device (principal); K83.09 Other cholangitis; Z88.0 Allergy status to penicillin; Z88.2 Allergy status to sulfonamides; I10 Essential (primary) hypertension; F20.9 Schizophrenia, unspecified; F31.9 Bipolar disorder, unspecified; Z93.1 Gastrostomy status
CPT/HCPCS: 99282

== ENCOUNTER 2018-12-05 20:28 | Inpatient (IN) | payer MEDICARE ==
[~2018-12-05] VITALS: Ht 160 cm; Wt 35.4 kg
[~2018-12-05 20:28] MED LIST changes: +ASCORBIC ACID500 MG ORAL; +OMEPRAZOLE20 M2 ORAL; +SENNA8.6 M2 PO; +VANCOMYCIN500 MG/100 IV; +ZINC SULFATE220 M1 ORAL
--- NOTE | 2018-12-05 20:35 | NUR ---
ED Nurse Note: Pt BIBA from [facility]. Pt c/o n/v with coffe ground emesis x2 between 1500 and 1700 today. Pt having abdominal pain 03/11. Allergy to PCN, sulfa, pt baseline tachy in 120s. Will assess and carry out ER MD's orders.
--- NOTE | 2018-12-05 20:41 | Emergency Room Report ---
History of Present Illness General Chief Complaint: Vomiting Source: Patient, Medical Record, EMS Present Illness HPI Patient presents with reports of multiple vomiting episode Review of medical records reveals previous metastatic disease Patient herself presents appearing very thin Ill Is not responsive to my questioning and essentially looks away with attempts of obtaining history Unknown regarding fever unknown regarding diarrhea [facility] reports multiple vomiting episodes and also coffee ground type Allergies: Coded Allergies: PENICILLINS (Verified Allergy, Unknown, 02/17/18) SULFA (SULFONAMIDE ANTIBIOTICS) (Unverified Allergy, Unknown, 10/02/18) Uncoded Allergies: SULFA (Allergy, Unknown, 02/17/18) Patient History Limited by: medical condition Past Medical History: see triage record Pertinent Family History: none Reviewed Nursing Documentation: PMH: Agreed; PSxH: Agreed Nursing Documentation-PMH Past Medical History: No History, Except For Hx Hypertension: Yes Hx Gastrointestinal Problems: Yes - GERD, GTube Hx Neurological Problems: Yes - schizo, bipolar Review of Systems All Other Systems: limited - Other than the ones mentioned in the history of present illness all others are reviewed however they do stay limited due to the patient's mental status Physical Exam Vital Signs Date Time Temp Pulse Resp B/P (MAP) Pulse Ox O2 Delivery O2 Flow Rate FiO2 12/05/18 20:24 98.2 120 20 97 Sp02 EP Interpretation: reviewed, normal General Appearance: thin Head: normocephalic, atraumatic Eyes: bilateral eye PERRL, bilateral eye EOMI ENT: dry mucus membranes Neck: supple Respiratory: lungs clear, no retraction, no accessory muscle use Cardiovascular #1: regular rate, rhythm Gastrointestinal: non tender, soft Musculoskeletal: other - No obvious focal deficit however patient not following all commands appropriately Neurologic: responsive Psychiatric: depressed affect Skin: other - poor turgor Lymphatic: no adenopathy Medical Decision Making Diagnostic Impression: Primary Impression: Vomiting Additional Impressions: Coffee ground emesis Dehydration ER Course Multiple differentials and consideration Patient appears thin pale and in some discomfort IV hydration initiated Blood work is otherwise appropriate Patient admitted for further inpatient care Labs Test 12/05/18 21:23 White Blood Count 12.8 K/UL (4.8-10.8) Red Blood Count 4.51 M/UL (4.20-5.40) Hemoglobin 14.4 G/DL (12.0-16.0) Hematocrit 42.5 % (37.0-47.0) Mean Corpuscular Volume 94 FL (80-99) Mean Corpuscular Hemoglobin 31.9 PG (27.0-31.0) Mean Corpuscular Hemoglobin Concent 33.8 G/DL (32.0-36.0) Red Cell Distribution Width 11.6 % (11.6-14.8) Platelet Count 360 K/UL (150-450) Mean Platelet Volume 6.7 FL (6.5-10.1) Neutrophils (%) (Auto) 82.4 % (45.0-75.0) Lymphocytes (%) (Auto) 12.1 % (20.0-45.0) Monocytes (%) (Auto) 5.1 % (1.0-10.0) Eosinophils (%) (Auto) 0.0 % (0.0-3.0) Basophils (%) (Auto) 0.3 % (0.0-2.0) Sodium Level 145 MMOL/L (136-145) Potassium Level 3.7 MMOL/L (3.5-5.1) Chloride Level 105 MMOL/L (98-107) Carbon Dioxide Level 31 MMOL/L (21-32) Anion Gap 9 mmol/L (5-15) Blood Urea Nitrogen 30 mg/dL (7-18) Creatinine 0.7 MG/DL (0.55-1.30) Estimat Glomerular Filtration Rate mL/min (>60) Glucose Level 130 MG/DL (74-106) Calcium Level 9.9 MG/DL (8.5-10.1) Total Bilirubin 0.3 MG/DL (0.2-1.0) Aspartate Amino Transf (AST/SGOT) 20 U/L (15-37) Alanine Aminotransferase (ALT/SGPT) 27 U/L (12-78) Alkaline Phosphatase 154 U/L (46-116) Total Creatine Kinase 54 U/L (26-308) Creatine Kinase MB 0.8 NG/ML (0.0-3.6) Creatine Kinase MB Relative Index 1.4 Troponin I 0.005 ng/mL (0.000-0.056) Total Protein 7.4 G/DL (6.4-8.2) Albumin 3.8 G/DL (3.4-5.0) Globulin 3.6 g/dL Albumin/Globulin Ratio 1.1 (1.0-2.7) Lipase 190 U/L (73-393) Rhythm Strip Diag. Results EP Interpretation: yes Rate: 60 Rhythm: NSR, no PVC's, no ectopy Chest X-Ray Diagnostic Results Chest X-Ray Diagnostic Results : Chest X-Ray Ordered: Yes # of Views/Limited/Complete: 1 View Indication: Chest Pain EP Interpretation: Yes Interpretation: no consolidation, no effusion, no pneumothorax Impression: No acute disease Electronically Signed by: Kyle Perry DO Last Vital Signs Date Time Temp Pulse Resp B/P (MAP) Pulse Ox O2 Delivery O2 Flow Rate FiO2 12/05/18 20:24 98.2 120 20 97 Status: improved Disposition: ADMITTED INPATIENT Condition: Serious Kyle Perry DO December 05, 2018 20:41
--- NOTE | 2018-12-05 20:45 | NUR ---
ED Nurse Note: Pt repositioned and skin checked. Sacral and buttocks old healed scar. Skin intact, loose and dry. Pt vomitted 150 ml of coffee-ground emesis in [facility]. aware.
[2018-12-05 20:50] VITALS: BP 121/70
[2018-12-05 21:59] VITALS: BP 115/73
[2018-12-05 22:01] LABS: BASOPHILS % (AUTO) 0.3 % (0.0-2.0); HEMATOCRIT 42.5 % (37.0-47.0); HEMOGLOBIN 14.4 G/DL (12.0-16.0); LYMPHOCYTES % (AUTO) 12.1 % (20.0-45.0); MEAN CORPUSCULAR VOLUME 94 FL (80-99); MONOCYTES % (AUTO) 5.1 % (1.0-10.0); NEUTROPHILS % (AUTO) 82.4 % (45.0-75.0); PLATELET COUNT 360 K/UL (150-450); RED BLOOD COUNT 4.51 M/UL (4.20-5.40); RED CELL DISTRIBUTION WIDTH 11.6 % (11.6-14.8); WHITE BLOOD COUNT 12.8 K/UL (4.8-10.8)
[2018-12-05 22:30] LABS: ANION GAP 9 mmol/L (5-15); BLOOD UREA NITROGEN 30 mg/dL (7-18); CALCIUM 9.9 MG/DL (8.5-10.1); CARBON DIOXIDE 31 MMOL/L (21-32); CHLORIDE 105 MMOL/L (98-107); CREATININE 0.7 MG/DL (0.55-1.30); POTASSIUM 3.7 MMOL/L (3.5-5.1); SODIUM 145 MMOL/L (136-145)
--- NOTE | 2018-12-05 22:30 | NUR ---
ED Nurse Note: Pt IVF running asymptomatic as prescribed. No distress noted. Will continue to monitor.
[2018-12-05 22:45] LABS: ALANINE AMINOTRANSFERASE 27 U/L (12-78); ALBUMIN 3.8 G/DL (3.4-5.0); ALBUMIN/GLOBULIN RATIO 1.1 (1.0-2.7); ALKALINE PHOSPHATASE 154 U/L (46-116); ASPARTATE AMINO TRANSFERASE 20 U/L (15-37); BILIRUBIN,TOTAL 0.3 MG/DL (0.2-1.0); CKMB 0.8 NG/ML (0.0-3.6); CREATINE KINASE 54 U/L (26-308)
[2018-12-06] VITALS (7 sets, daily range): BP systolic 113–140; BP diastolic 62–75
--- NOTE | 2018-12-06 01:00 | NUR ---
NURSE NOTES: Received patient from ER, report received from Pily BULLARD. Pt is awakw, AAO X2, on room air, unlabored breathing. Pt denies pain at the moment. Pt has a G-Tube on the upper abdomen, redness noted on bilateral trochanters. Started new IV on pt's L FA 22 G. Bed is locked at the lowest position, bed alarms active, side rails up x2, and call light is within reach. Will continue to monitor.
[2018-12-06] MEDS: D5 1/2NS w/KCl 20mEq 1,000 ML IV SCH ×2 (04:22→16:02)
--- NOTE | 2018-12-06 07:36 | NUR ---
HAND-OFF: Report given to JUAN MIGUEL Cox.
--- NOTE | 2018-12-06 07:40 | NUR ---
NURSE NOTES: Received patient in bed, awake, alert and oriented x1-2, no tin respiratory/cardiac distress. noted @ this time. Denies nausea or vomiting. Patient is on NPO. GT intact, HOB elevated and re-positioned the patient to the side and suction set up. IV is occluded. Will follow up. Bed is in lowest position and locked. Call light within reach. Will continue plan of care.
[2018-12-06] MEDS: Heparin 5000 units/ml inj SUBQ SCH ×2 (09:00→21:00)
--- NOTE | 2018-12-06 09:00 | NUR ---
NURSE NOTES: Patient's IV was occluded and RN inserted a new IV on left hand with G24. Intact and patent. On IVF, denies vomiting or nausea.
[2018-12-06 09:18] LABS: BASOPHILS % (AUTO) 0.4 % (0.0-2.0); EOSINOPHILS % (AUTO) 0.2 % (0.0-3.0); HEMATOCRIT 39.1 % (37.0-47.0); HEMOGLOBIN 13.3 G/DL (12.0-16.0); LYMPHOCYTES % (AUTO) 19.1 % (20.0-45.0); MEAN CORPUSCULAR VOLUME 96 FL (80-99); MONOCYTES % (AUTO) 7.5 % (1.0-10.0); NEUTROPHILS % (AUTO) 72.9 % (45.0-75.0); PLATELET COUNT 305 K/UL (150-450); RED BLOOD COUNT 4.06 M/UL (4.20-5.40); RED CELL DISTRIBUTION WIDTH 11.8 % (11.6-14.8); WHITE BLOOD COUNT 10.6 K/UL (4.8-10.8)
[2018-12-06 09:29] LABS: ALANINE AMINOTRANSFERASE 25 U/L (12-78); ALBUMIN 3.3 G/DL (3.4-5.0); ALBUMIN/GLOBULIN RATIO 0.9 (1.0-2.7); ALKALINE PHOSPHATASE 130 U/L (46-116); ANION GAP 9 mmol/L (5-15); ASPARTATE AMINO TRANSFERASE 22 U/L (15-37); BILIRUBIN,TOTAL 0.4 MG/DL (0.2-1.0); BLOOD UREA NITROGEN 23 mg/dL (7-18); CARBON DIOXIDE 29 MMOL/L (21-32); CHLORIDE 109 MMOL/L (98-107); CREATININE 0.7 MG/DL (0.55-1.30); POTASSIUM 3.7 MMOL/L (3.5-5.1); SODIUM 147 MMOL/L (136-145)
--- NOTE | 2018-12-06 10:28 | Diagnostic Imaging Report ---
Indication: Chest pain Comparison: 02/17/2018 A single view chest radiograph was obtained. Findings: Cardiomediastinal appearance is within normal limits for age. The right chest port was removed. The lungs are clear. Pulmonary vascularity is appropriate. The diaphragmatic contour is smooth and costophrenic angles are sharp. No pleural effusions are identified. The bones are osteopenic. Impression: No acute findings
--- NOTE | 2018-12-06 11:09 | Cardiology Report ---
APPROVED REPORT EKG Measurement Heart [id number] MA [id number] Sinus tachycardia Left axis deviation Low voltage QRS Cannot rule out Anteroseptal infarct, age undetermined Abnormal ECG
--- NOTE | 2018-12-06 11:24 | NUR ---
RD ASSESSMENT & RECOMMENDATIONS SEE CARE ACTIVITY FOR COMPLETE ASSESSMENT DAILY ESTIMATED NEEDS: Needs based on Severely underweight, metastatic CA/ 37kg 35-40 kcals/kg 2923-8029 total kcals 1-2 g protein/kg 37-74 g total protein 25-30 mL/kg 925-1110 total fluid mLs NUTRITION DIAGNOSIS: * Increased kcal/pro needs R/T for wt gain, catabolic dx as evidenced by severely underweight status w/ BMI 14.9, pt @ 74% IBW, dx of metastatic breast cancer. * Swallowing difficulty R/T dysphagia as evidenced by PEG dep, currently NPO, admitted w/ c/o coffee ground emesis. CURRENT TF:NPO ENTERAL NUTRITION RECOMMENDATIONS: Jevity 1.2 @ 50ml/hr x 24 hrs to provide 1200ml, 1440kcal, 67g prot, 968ml free water * As medically appropriate, initiate Jevity 1.2 @ 20ml/hr x 6 hrs, advance 10ml q 4-6 hrs as tolerated to goal rate * HOB over 30 degrees/ water flush per MD. ADDITIONAL RECOMMENDATIONS: * Calibrated bedscale wt for accurate CBW * Per SNF, pt's HT=62", WT=81lbs (obtained end of October) * Weekly wt monitoring given underweight status * Monitor NPO status- admitted w/ c/o coffee ground emesis * Monitor lytes, replete as needed
--- NOTE | 2018-12-06 13:13 | NUR ---
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 CC:VOMITING SI:DEHYDRATION . PERSISTENT VOMITING COFFEE GROUND EMESIS VS: BP 113/70, P 120, T 98.2, RR 25, SpO2 97 WBC 12.8, RBC 4.06BUN 30, Na 147 IS:NS x500ML IV ZOFRAN 4mg IVP ADMITTED TO MED/SURG DCP: RETURN TO [facility]
--- NOTE | 2018-12-06 17:30 | NUR ---
NURSE NOTES: Patient was seen by Dr. Ramírez and RN asked about GI. Dr. Ramírez will look gor GI for the patient. Patient is NPO and denies nausea or vomiting.Re-position done Q2hr.Skin intact.
--- NOTE | 2018-12-06 19:38 | NUR ---
HAND-OFF: Report given to Emma.
--- NOTE | 2018-12-06 20:00 | NUR ---
NURSE NOTES: RECEIVED PATIENT LYING IN BED, EYES CLOSED, AWAKENED TO NAME, NON VERBAL DURING ASSESSMENT, NO SIGNS AND SYMPTOMS OF ACUTE CARDIO RESPIRATORY DISTRESS/SHORTNESS OF BREATH, NO EDEMA NOTED. IV INTACT TO LEFT HAND/GAUGE 24, IV FLUIDS INFUSING, NO REDNESS/SWELLING NOTED. ABDOMEN FLAT/SOFT/BOWEL SOUNDS AUDIBLE, LAST BM UNKNOWN, ASSISTED WITH INCONTINENCE, TOLERATED WELL. SKIN ASSESSMENT; SKIN INTACT, CONTRACTED BILATERAL LOWER EXTREMITIES. SIDE RAILS UP X3/BD IN LOWEST POSITION FOR SAFETY. FREQUENT ROUNDING FOR SAFETY/NEEDS. NAD.
[2018-12-07] VITALS: BP 161/89
--- NOTE | 2018-12-07 | NUR ---
NURSE NOTES: PATIENT NOTED WITH ELEVATED HEART RATE/BLOOD PRESSURE AT MIDNIGHT; SUPPORTABILITY ENGINEER REASSESSED VITALS HR 101, B/P 148/79, WILL CONTINUE TO MONITOR
--- NOTE | 2018-12-07 00:15 | NUR ---
NURSE NOTES: REASSESSED VITALS; 148/79, HR 101- NAD.
--- NOTE | 2018-12-07 00:15 | History and Physical Report ---
DATE OF ADMISSION: 12/05/2018 CHIEF COMPLAINT: Vomiting. HISTORY OF PRESENT ILLNESS: This is a 78-year-old female, who is a [facility] resident. I was called earlier today. The patient started vomiting coffee-grounds emesis. The patient is demented and unable to give any further information. PAST MEDICAL HISTORY: 1. History of metastatic breast cancer x3 years without significant further decline. The patient was on hospice before, but continues to live to be stable. 2. Organic brain syndrome. 3. Schizophrenia. MEDICATIONS: Milk of magnesia, multivitamins, omeprazole, Zofran, protein liquid, senna, and Tylenol p.r.n. ALLERGIES: No known drug allergies. FAMILY HISTORY: Unable to obtain due to mental status. SOCIAL HISTORY: Unable to obtain due to mental status. REVIEW OF SYSTEMS: Unable to obtain due to mental status. PHYSICAL EXAMINATION: GENERAL: This is an elderly female, who is in no acute distress. VITAL SIGNS: Blood pressure 136/75, pulse 90 and regular, respirations 19, and temperature 98.2 oral. HEENT: The head is normocephalic and atraumatic. Pupils are equal, round, and reactive to light and accommodation consensually. NECK: Supple. Trachea midline. There was no lymphadenopathy or thyromegaly. LUNGS: Clear to auscultation and percussion. HEART: Regular rate and rhythm without rubs, murmurs, or gallops. ABDOMEN: Scaphoid, soft, and nontender. She has a G-tube. NEUROLOGIC: She is alert, but confused. There were no gross focal findings. LABORATORY AND ANCILLARY DATA: CBC within normal limits. Serum chemistry essentially within normal limits. Surprisingly, her albumin level is 3, on admission was 3.8 and today is 3.3. Chest x-ray, no acute findings. ASSESSMENT: 1. Coffee-grounds emesis, etiology unclear. 2. History of metastatic breast cancer x3 years without significant further decline. The patient was on hospice before, but continues to live to be stable. 3. Organic brain syndrome. 4. Schizophrenia. PLAN: 1. Gastrointestinal consult. 2. Continue [facility] medications. 3. Keep NPO. Kai Ramírez M.D. DR: FORREST JOB#: [id number] CC:
--- NOTE | 2018-12-07 01:00 | NUR ---
NURSE NOTES: ASSESSED VITALS; B/P 131/81, HR FLUCTUATING 130 - 147, TELEPHONE CALL PLACED TO MD EMERGENCY VOICE MAIL, LEFT EXT [phone] FOR MD TO CALL BACK, CN MADE AWARE, WILL CONTINUE TO MONITOR.
--- NOTE | 2018-12-07 01:53 | NUR ---
NURSE NOTES: FOLLOW UP CALL PLACED TO MD, LEFT TELEPHONE NUMBER ON BEEPER-
--- NOTE | 2018-12-07 01:56 | NUR ---
NURSE NOTES: 139/68 - 105
[2018-12-07 04:00] VITALS: BP 110/73
--- NOTE | 2018-12-07 05:00 | NUR ---
NURSE NOTES: PATIENT IV DISLODGED; VERY COMBATIVE, FIGHTING, SCRATCHING, RIPPING OFF ISOLATION GOWNS; UNABLE TO REINSERT AT THIS TIME DUE TO BEHAVIOR.
[2018-12-07] MEDS: D5 1/2NS w/KCl 20mEq 1,000 ML IV SCH ×2 (06:42→17:45)
--- NOTE | 2018-12-07 07:22 | NUR ---
NURSE NOTES: Received patient in bed, awake, denies to answer to questions, no tin respiratory/cardiac distress. noted @ this time. No s/s of pain or discomfort per FLACC pain scale. Patient is on NPO. GT intact, HOB elevated and re-positioned the patient to the side and suction set up but denies nausea or vomiting. IV intact, no s/s of infiltration. Bed is in lowest position and locked.Bed alarm is on. Call light within reach. Will continue plan of care.
--- NOTE | 2018-12-07 07:29 | NUR ---
HAND-OFF: Report given to JUAN MIGUEL RODGERS.
[2018-12-07 08:00] VITALS: BP 126/83
[2018-12-07] MEDS: Heparin 5000 units/ml inj SUBQ SCH ×3 (08:20→21:55)
--- NOTE | 2018-12-07 09:04 | GI Initial Consult Note ---
History of Present Illness General Reason for Hospitalization: Vomiting Present Illness Home Meds Reported Medications Zinc Sulfate (ZINC SULFATE*) 220 Mg Capsule, 220 MG ORAL DAILY, CAP 0 Refills 10/02/18 Vancomycin Hcl/D5w (VANCOMYCIN-D5W 500 MG/100 ML) 500 Mg/100 Ml Froz.piggy, 500 MG IV, BAG 10/02/18 Ascorbic Acid* (ASCORBIC ACID*) 500 Mg Tablet, 500 MG ORAL DAILY, TAB 10/02/18 Sennosides (SENNA) 8.6 Mg Tablet, 8.6 MG PO, TAB 10/02/18 Omeprazole (OMEPRAZOLE) 20 Mg Capsule.dr, 20 MG ORAL DAILY, CAP 10/02/18 Acetaminophen* (ACETAMINOPHEN 325MG TABLET*) 325 Mg Tablet, 650 MG ORAL Q4H PRN for Mild Pain (Pain Scale 1-3), TAB 02/17/18 Acetaminophen* (TYLENOL EXTRA STRENGTH*) 500 Mg Tablet, 1000 MG GT Q4HR PRN for Mild Pain/Temp > 100.5, TAB 0 Refills 02/17/18 Multivitamins* (MULTIVITAMINS*) 1 Each Tablet, 1 TAB GT DAILY, TAB 0 Refills 02/17/18 Magnesium Hydroxide* (MILK OF MAGNESIA*) 400 Mg/5 Ml Oral.susp, 30 ML GT DAILY PRN for Constipation, ML 02/17/18 Docusate Sodium* (COLACE*) 100 Mg Capsule, 100 MG GT TWICE A DAY, CAP 02/17/18 Donepezil Hcl* (ARICEPT*) 10 Mg Tablet, 10 MG GT DAILY, TAB 02/17/18 Discontinued Scripts Ondansetron* (ZOFRAN*) 4 Mg/2 Ml Vial, 4 MG IVP Q6H PRN for 30 Days, VIAL 9 Refills Prov:Kai Ramírez MD 02/20/18 Lansoprazole* (LANSOPRAZOLE*) 30 Mg Capsule., 30 MG GT DAILY for 30 Days, CAP 9 Refills Prov:Kai Ramírez MD 02/20/18 Allergies: Coded Allergies: PENICILLINS (Verified Allergy, Unknown, 02/17/18) SULFA (SULFONAMIDE ANTIBIOTICS) (Unverified Allergy, Unknown, 10/02/18) Uncoded Allergies: SULFA (Allergy, Unknown, 02/17/18) Physical Exam Vital Signs Date Time Temp Pulse Resp B/P (MAP) Pulse Ox O2 Delivery O2 Flow Rate FiO2 12/05/18 20:24 98.2 120 20 97 12/05/18 20:38 Room Air 12/05/18 20:50 121/70 Current Medications Current Medications Medications (Trade) Dose Ordered Sig/Kel Route PRN Reason Start Time Stop Time Status Last Admin Dose Admin Dextrose/ Electrolytes 1,000 ml @ 75 mls/hr [id number] IV 12/06/18 02:45 01/05/19 02:44 12/07/18 06:42 Heparin Sodium (Porcine) (Heparin 5000 units/ml) 5,000 units EVERY 12 HOURS SUBQ 12/06/18 09:00 01/05/19 08:59 Ondansetron HCl (Zofran) 4 mg Q6H PRN IVP Nausea & Vomiting 12/06/18 04:30 01/05/19 04:29 Pantoprazole (Protonix) 40 mg EVERY 12 HOURS ORAL 12/06/18 21:00 01/05/19 20:59 12/07/18 08:20 GI: Plan Plan see full dictation plan CT ppi GTF post CT repeat labs may need EGD Thank you Hugo John MD December 07, 2018 09:04
--- NOTE | 2018-12-07 09:05 | NUR ---
NURSE NOTES: Received tube feeding order from Dr. John. Patient is on NPO for now for CT abdomen/pelvis. Will start feeding after CT is done.
--- NOTE | 2018-12-07 09:12 | General Progress Note ---
Assessment/Plan Assessment/Plan: N+V, coffee ground with h/o metastatic breast CA. H+H stable. W/u in progress. See orders. [facility] GI. No family or DPOA. Subjective Allergies: Coded Allergies: PENICILLINS (Verified Allergy, Unknown, 02/17/18) SULFA (SULFONAMIDE ANTIBIOTICS) (Unverified Allergy, Unknown, 10/02/18) Uncoded Allergies: SULFA (Allergy, Unknown, 02/17/18) Subjective Vomited x1 coffee ground Objective Last 24 Hour Vital Signs Date Time Temp Pulse Resp B/P (MAP) Pulse Ox O2 Delivery O2 Flow Rate FiO2 12/07/18 08:00 98.0 101 18 126/83 (97) 99 12/07/18 04:00 98.3 101 20 110/73 (85) 99 12/07/18 00:00 99.5 115 17 161/89 (113) 95 12/06/18 21:00 Room Air 12/06/18 20:00 98.0 79 18 127/69 (88) 94 12/06/18 16:00 97.1 89 20 114/62 (79) 97 12/06/18 12:00 98.2 90 21 136/75 (95) 97 Intake and Output 12/06/18 12/07/18 18:59 06:59 Intake Total 750 ml 900 ml Output Total 500 ml 601 ml Balance 250 ml 299 ml Intake IV Total 750 ml 900 ml Output Urine Total 500 ml 600 ml Stool Total 1 ml # Voids 5 Height (Feet): 5 Height (Inches): 3.00 Weight (Pounds): 78 Objective [place] CV RR Lungs CTA Abd SNT. BS + E NO CCE Kai Ramírez MD December 07, 2018 09:12
--- NOTE | 2018-12-07 09:14 | NUR ---
NURSE NOTES: Received order from Dr. Ramírez to change CT order to CT abdomen/pelvis with IV and oral contrast. Order carried out.
[2018-12-07] MEDS ORDERED: Isovue-300 100ml vial INJ PRN (09:15)
--- NOTE | 2018-12-07 10:00 | NUR ---
NURSE NOTES: Dr. yarbrough signed for consent for CT contrast since patient has no family.
[2018-12-07 12:00] VITALS: BP 115/66
--- NOTE | 2018-12-07 13:00 | NUR ---
NURSE NOTES: Patient is in bed noted with episodes of biting her IV tubing and she grabbed her GT and did not want to let go. Patient is confused and unable to comprehend or understand when RN educated and explained about the risks and benefits. Non- pharmaceutical intervention done like TV, distraction, flushed GT and incontinent care. Will continue to monitor. RN @ bedside. Close monitoring
--- NOTE | 2018-12-07 13:32 | Diagnostic Imaging Report ---
Indication: Vomiting Technique: CT of the abdomen and pelvis utilizing automated exposure control with intravenous contrast. Venous scanning performed. Axial, sagittal and coronal reformats presented. CT dose: Total DLP 528.77 mGycm; CTDI vol 10.99 mGy Comparison: None Findings: Dependent atelectasis noted in the lung bases. Heart size within normal limits. There is no pericardial effusion. Liver normal in size. No focal hepatic mass lesion is appreciated on this single phase exam. Hepatic contour appears smooth. Hepatic portal veins appear patent. There is pneumobilia. Gallbladder appears slightly contracted. Spleen is normal in size. No discrete adrenal nodule is identified. 5 mm fluid attenuation structure is noted in the body the pancreas which may represent a intraductal papillary mucinous neoplasm (IPMN). No peripancreatic inflammatory changes. No associated ductal dilatation. Kidneys enhance symmetrically. No urinary tract stone or hydronephrosis bilaterally. Significant streak artifact from hip prostheses preclude evaluation of the bladder and additional pelvic structures including the reproductive organs. A gastrostomy tube is noted in place. Enteric contrast was administered. There is apparent filling defect in the distal stomach adjacent to the retention balloon of the gastrostomy tube (series 3 image #32). This may be related to luminal contents however the possibility of a luminal mass is not entirely excluded, as it may be some associated gastric wall thickening. There is no definite evidence of small bowel obstruction. There appears to be mild fecal impaction. Again, evaluation of the pelvis is limited. There is colonic diverticulosis without definite evidence to suggest acute diverticulitis. There is osteopenia. There are degenerative changes of the spine. There is 6 nonrib-bearing lumbar-type vertebral bodies. There is grade 1 anterolisthesis of L5 on L6. L6 is sacralized. There is a 9 mm well-circumscribed sclerotic lesion in the L4 vertebral body which likely represents a bone island. Possibility of a metastatic focus thought less likely but not entirely excluded. There is a left hip arthroplasty. Fixation screws also noted within the right femoral head. There are degenerative changes of the right hip. Patient appears to be status post right mastectomy. Breast tissue in the left breast appears somewhat nodular and the possibility of masses not excludable. IMPRESSION: Exam is limited due to significant streak artifact from pelvic hardware. This significantly limits evaluation through the pelvis. Within these limitations: * Gastrostomy tube in place. Oral contrast was administered however there is filling defect in the distal stomach about the level of the retention balloon of the gastrostomy tube. This may be related to ingested contents however the possibility of an intraluminal mass is not excluded, especially as there is some possible associated gastric wall thickening. Consider further evaluation with endoscopy. * Pneumobilia noted. Findings may be related to prior sphincterotomy. Correlation with clinical history recommended. * Status post right mastectomy. Left breast tissue appears somewhat nodular and the possibility of mass is not excludable. Correlation with breast exam is recommended. * 5 mm low-attenuation structure in the body of the pancreas may represent an IPMN. * Colonic diverticulosis without evidence of acute diverticulitis. * Mild fecal impaction. * 9 mm well-circumscribed sclerotic focus in the L4 vertebral body. To represent a bone island. Bone metastasis/lesion is felt less likely. The CT scanner at [facility] is accredited by the [employer] and the scans are performed using protocols designed to limit radiation exposure to as low as reasonably achievable to attain images of sufficient resolution adequate for diagnostic evaluation.
--- NOTE | 2018-12-07 14:30 | NUR ---
NURSE NOTES: Patient is asleep @ this time.
--- NOTE | 2018-12-07 15:27 | NUR ---
NURSE NOTES:WOUND CARE NOTES:Pt emaciated and contracted in foetal position. Skin assessment of all bony prominences completed. No evidence of skin breakdown noted to bony prominences including both elbows both hips ,sacrum and bilat ischial regions. Bilat heels and malleoli are pink and blanchable.Pt is continent of bowel and bladder . Cavilon Applied bony prominences. Optifoam drsg applied to sacrum,both hips ,both heels and malleoli. Triad paste applied to perineal areas. Pt positioned in bed with both heels floated off mattress. Recommendations.Apply Triad paste to sacrum .Cover with Optifoam drsg. Change every 3 days and prn. Apply Cavilon wipes to bony prominences and cover areas with Optifoam drsg prn. Apply Cavilon Skin BArier to both heels. Cover each heel with Optifoam drsgs. Change every 7 days and prn. Reposition at least every 2hours or as tolerated. Off-load Heels with pillow.
--- NOTE | 2018-12-07 15:30 | NUR ---
NURSE NOTES: Patient is asleep @ this time. Will continue to monitor.
--- NOTE | 2018-12-07 15:45 | NUR ---
NURSE NOTES: During round, patient noted with episodes of biting her IV tubing and trying to grab her GT. RN did oral care, proper incontinent care, re-position, patient tried to hit and grabbed nurses hands and scratched. No s/s of pain or discomfort per FLACC pain scale. Non-pharmaceutical intervention were ineffective and patient unable to understand the risks and benefits. Close monitoring. Dr. Ramírez was paged. Awaiting for return call.
--- NOTE | 2018-12-07 15:54 | Physician Query ---
--------- THIS DOCUMENT IS A PERMANENT PART OF THE MEDICAL RECORD --------- PLEASE COMPLETE DOCUMENT BEFORE SIGNING Dear Dr. Kai Jones Date: 12/07/2018 Shank Pinner/CDS Name: Moni Monterroso Exercise your independent professional judgment when responding to the query. Questions asked do not imply a particular answer is desired or expected. We greatly appreciate your clarification on this issue. CLINICAL DOCUMENTATION STATES: 71 yo female N+V, coffee ground with h/o metastatic breast CA RD note: Increased kcal/pro needs R/T for wt gain, catabolic dx as evidenced by severely underweight status w/ BMI 14.9, pt @ 74% IBW, dx of metastatic...* Swallowing difficulty R/T dysphagia as evidenced by PEG dep, currently NPO, admitted w/ c/o coffee ground emesis. BMI: 14.9 RD treatment recommendations:Jevity 1.2 @ 50ml/hr x 24 hrs to provide 1200ml, 1440kcal, 67g prot, 968ml free water Please respond to the following question: Is there a diagnosis specific to these symptoms or values? If so please state below. PHYSICIAN RESPONSE: [] Mild protein calorie malnutrition [] Moderate protein calorie malnutrition [X] Severe protein calorie malnutrition [] Other: [] Unknown Condition Present on Admission: [X] Yes [] No []Clinically Undeterminable Please also document in your Progress Notes and/or Discharge Summary and indicate if the condition was present on admission. Signature Date MTDD
--- NOTE | 2018-12-07 15:59 | NUR ---
NURSE NOTES: Received order to apply soft wrist restraints on both wrist. Will continue to monitor it's effectiveness.
[2018-12-07 16:00] VITALS: BP 128/70
--- NOTE | 2018-12-07 18:00 | NUR ---
NURSE NOTES: Released restraints and checked skin, skin intact, no swelling, skin break, pulse presents.Patient grabbed nurses hands and tried grab IV tubing. Will continue with restraints.
--- NOTE | 2018-12-07 18:15 | Consultation ---
DATE OF CONSULTATION: 12/07/2018 CHIEF COMPLAINT: Coffee-grounds emesis. HISTORY OF PRESENT ILLNESS: Most of the history is per chart. A 78-year-old female with past medical history of dementia, schizophrenia, history of dysphagia with a G-tube in place, history of possible metastatic breast cancer, presented to the hospital with coffee-ground emesis. The patient unfortunately is a very poor historian. I cannot get any history from her. PAST MEDICAL HISTORY: Significant for, 1. History of breast cancer possibly with mets. 2. Dysphagia with G-tube. 3. Dementia. 4. Psychiatric disorder and schizophrenia. PAST SURGICAL HISTORY: Per chart none. MEDICATIONS: Please see medication reconciliation list. ALLERGIES: Penicillin and sulfa. SOCIAL HISTORY: Currently lives in a prison. No recent history of tobacco, alcohol, or drug abuse. FAMILY HISTORY: Noncontributory. REVIEW OF SYSTEMS: Limited. PHYSICAL EXAMINATION: VITAL SIGNS: Temperature is 98, pulse 101, respirations 18, and blood pressure is 126/83. HEENT: Normocephalic and atraumatic. Sclerae anicteric. NECK: Supple. No obvious evidence of lymphadenopathy. CARDIOVASCULAR: Regular rate and rhythm. Plus S1 and S2. No obvious murmur. LUNGS: Clear to auscultation bilaterally. ABDOMEN: Positive bowel sounds. Soft and nontender. G-tube in place. No rebound. No guarding. No peritoneal sign. EXTREMITIES: No cyanosis, no clubbing, and no edema. LABORATORY DATA: White count is 10.6, hemoglobin 13, hematocrit 39, and platelet count is 305,000. Chem-7, sodium 147, potassium 3.7, BUN is 23, creatinine 0.7, and glucose is 109. Alkaline phosphatase is 130. ASSESSMENT: This is a 78-year-old female with coffee-ground emesis, dysphagia with a G-tube, and past medical history of breast cancer and dysphagia presented to the hospital with a complaint of coffee-ground emesis. At this time, hemoglobin seems to be stable comparing to last admissions. The last admission in January 2018. Hemoglobin was 13.4, today is 13.3, so I doubt that the patient has massive gastrointestinal bleeding. PLAN: 1. Plan to be continued on PPI. 2. Start the feeding today. 3. Order a CT of the abdomen and pelvis to reevaluate for metastatic breast cancer. 4. Order CEA and CA-19-9. 5. Stool for OB. 6. We will consider gastrointestinal procedures if needed. The patient has no family to sign consent. We will plan only GI procedures if it is emergency. I want to thank, Dr. Ramírez, for this kind referral. Hugo John M.D. DR: ADAM JOB#: [id number] CC: Kai Ramírez M.D.; Fax#: [phone]
--- NOTE | 2018-12-07 19:20 | NUR ---
HAND-OFF: Report given to Emma.
--- NOTE | 2018-12-07 19:30 | NUR ---
NURSE NOTES: RECEIVED PATIENT LYING IN BED, EYES OPEN, NO SIGNS OF PAIN/NO FACIAL GRIMACING NOTED. HEAD OF BED ELEVATED DURING GT FEEDING, NO SIGNS AND SYMPTOMS OF ACUTE CARDIO RESPIRATORY DISTRESS/SHORTNESS OF BREATH, NO PERIPHERAL EDEMA NOTED, BILATERAL UPPER EXTREMITIES CONTRACTED. BILATERAL WRIST RESTRAINTS INTACT TO PREVENT PATIENT FROM REMOVING TUBINGS, PATIENT ALSO COMBATIVE, SCRATCHING AND ATTEMPTING TO BITE STAFF AND TUBING. ABDOMEN SOFT/NON DISTENDED, BOWEL SOUNDS AUDIBLE, TOLERATING FEEDING, NO GASTRIC RESIDUAL ASPIRATED. ASSISTED WITH PM CARE. SIDE RAILS UP X3/BED IN LOWEST POSITION FOR SAFETY. FREQUENT ROUNDING FOR SAFETY/NEEDS. CONTINUE WITH CURRENT PLAN OF CARE. NAD.
[2018-12-07 20:00] VITALS: BP 123/82
--- NOTE | 2018-12-07 21:00 | NUR ---
NURSE NOTES: HEPARIN NOT GIVEN SECONDARY TO COFFEE GROUND EMESIS/VIAL INADVERTENTLY OPENED AND WASTED.
[2018-12-08] VITALS: BP 115/68
--- NOTE | 2018-12-08 02:46 | NUR ---
HAND-OFF: Report given to JUAN MIGUEL COOK.
--- NOTE | 2018-12-08 02:47 | NUR ---
NURSE NOTES: Received patient in bed. A&Ox1. IV site patent and intact. G-tube in place, running Vital AF 1.2 55cc/hr, 0cc residual noted, flushed, elevated HOB. Restraint on bilateral wrists, radial pulse present, no skin tear or bruise noted. Bed in lowest position. Call light within reach. Will continue to monitor.
[2018-12-08 04:00] VITALS: BP 112/66
--- NOTE | 2018-12-08 07:30 | NUR ---
NURSE NOTES: Received pt from RN GUIDO, pt is confused and orient x1. pt is in RA, No SOB or acute respiratory distress noted. pt has g tube in place is working well. pt has intact iv access LFA 24G is running well. all needs attended, bed is locked and is in the lowest position, call light within easy reach. will continue to monitor.
--- NOTE | 2018-12-08 07:30 | NUR ---
HAND-OFF: Report given to Kimberly BULLARD.
[2018-12-08 07:33] LABS: BASOPHILS % (AUTO) 0.8 % (0.0-2.0); EOSINOPHILS % (AUTO) 3.8 % (0.0-3.0); HEMATOCRIT 37.7 % (37.0-47.0); HEMOGLOBIN 12.7 G/DL (12.0-16.0); MEAN CORPUSCULAR VOLUME 96 FL (80-99); MONOCYTES % (AUTO) 6.7 % (1.0-10.0); NEUTROPHILS % (AUTO) 69.7 % (45.0-75.0); PLATELET COUNT 244 K/UL (150-450); RED BLOOD COUNT 3.94 M/UL (4.20-5.40); RED CELL DISTRIBUTION WIDTH 11.7 % (11.6-14.8)
[2018-12-08 07:55] LABS: ALANINE AMINOTRANSFERASE 30 U/L (12-78); ALBUMIN 3.1 G/DL (3.4-5.0); ALBUMIN/GLOBULIN RATIO 0.9 (1.0-2.7); ALKALINE PHOSPHATASE 134 U/L (46-116); AMYLASE 78 U/L (25-115); ANION GAP 8 mmol/L (5-15); ASPARTATE AMINO TRANSFERASE 28 U/L (15-37); BILIRUBIN,TOTAL 0.4 MG/DL (0.2-1.0); BLOOD UREA NITROGEN 17 mg/dL (7-18); CALCIUM 8.7 MG/DL (8.5-10.1); CARBON DIOXIDE 25 MMOL/L (21-32); CHLORIDE 106 MMOL/L (98-107); CREATININE 0.7 MG/DL (0.55-1.30); POTASSIUM 3.9 MMOL/L (3.5-5.1); SODIUM 139 MMOL/L (136-145)
[2018-12-08 08:00] VITALS: BP_SYST 103; BP_SYST 130; BP_DIAS 70; BP_DIAS 72
[2018-12-08] MEDS: D5 1/2NS w/KCl 20mEq 1,000 ML IV SCH ×2 (08:28→20:26)
[2018-12-08] MEDS: Heparin 5000 units/ml inj SUBQ SCH ×2 (08:29→20:24)
[2018-12-08 11:56] VITALS: BP 133/72
--- NOTE | 2018-12-08 12:35 | General Progress Note ---
Assessment/Plan Problem List: (1) Diverticulosis ICD Codes: K57.90 - Diverticulosis of intestine, part unspecified, without perforation or abscess without bleeding SNOMED: 594570980 (2) Fecal impaction ICD Codes: K56.41 - Fecal impaction SNOMED: 75139946 (3) H/O malignant neoplasm of breast ICD Codes: Z85.3 - Personal history of malignant neoplasm of breast SNOMED: 311262187 (4) Pancreatic cyst ICD Codes: K86.2 - Cyst of pancreas SNOMED: 72961644 (5) G tube feedings ICD Codes: Z93.1 - Gastrostomy status SNOMED: 167752754, 249544168 (6) Vomiting ICD Codes: R11.10 - Vomiting, unspecified SNOMED: 150233130 (7) Coffee ground emesis ICD Codes: K92.0 - Hematemesis SNOMED: 80253736, 237775105 Assessment/Plan: ppi bowel regimen GTF needs EGD, plan for tomorrow fu tumor markers Subjective ROS Limited/Unobtainable: No Allergies: Coded Allergies: PENICILLINS (Verified Allergy, Unknown, 02/17/18) SULFA (SULFONAMIDE ANTIBIOTICS) (Unverified Allergy, Unknown, 10/02/18) Uncoded Allergies: SULFA (Allergy, Unknown, 02/17/18) Objective Last 24 Hour Vital Signs Date Time Temp Pulse Resp B/P (MAP) Pulse Ox O2 Delivery O2 Flow Rate FiO2 12/08/18 11:56 97.9 83 18 133/72 (92) 94 12/08/18 09:00 Room Air 12/08/18 08:00 97.7 79 18 130/72 (91) 93 12/08/18 04:00 99.4 82 16 112/66 (81) 100 12/08/18 00:00 99.5 85 18 115/68 (84) 100 12/07/18 21:00 Room Air 12/07/18 20:00 99.6 99 18 123/82 (96) 98 12/07/18 16:00 97.9 106 18 128/70 (89) 98 Intake and Output 12/07/18 12/08/18 18:59 06:59 Intake Total 1305 ml 3110 ml Output Total 751 ml Balance 1305 ml 2359 ml Free Water 150 ml 570 ml IV Total 825 ml 1825 ml Tube Feeding 330 ml 715 ml Output Urine Total 600 ml Stool Total 1 ml Emesis 150 ml # Voids 4 4 # Bowel Movements 2 1 Laboratory Tests 12/07/18 20:00: Stool Occult Blood Negative 12/08/18 06:50: White Blood Count 8.0, Red Blood Count 3.94L, Hemoglobin 12.7, Hematocrit 37.7, Mean Corpuscular Volume 96, Mean Corpuscular Hemoglobin 32.3H, Mean Corpuscular Hemoglobin Concent 33.8, Red Cell Distribution Width 11.7, Platelet Count 244, Mean Platelet Volume 7.1, Neutrophils (%) (Auto) 69.7, Lymphocytes (%) (Auto) 19.0L, Monocytes (%) (Auto) 6.7, Eosinophils (%) (Auto) 3.8H, Basophils (%) ( Auto) 0.8, Sodium Level 139, Potassium Level 3.9, Chloride Level 106, Carbon Dioxide Level 25, Anion Gap 8, Blood Urea Nitrogen 17, Creatinine 0.7, Estimat Glomerular Filtration Rate , Glucose Level 102, Hemoglobin A1c 5.3, Calcium Level 8.7, Total Bilirubin 0.4, Aspartate Amino Transf (AST/SGOT) 28, Alanine Aminotransferase (ALT/SGPT) 30, Alkaline Phosphatase 134H, Total Protein 6.5, Albumin 3.1L, Globulin 3.4, Albumin/Globulin Ratio 0.9L, Amylase Level 78, Lipase 249, Carcinoembryonic Antigen [Pending], CA 19-9 Antigen [Pending], Vitamin B12 Level 830, Folate 44.7 Patient : MEJIA LOU Referring Physician: Kai Ramírez MD ID Number: [id number] Service Date: 12/07/18 : 1940 Report Date: 12/07/18 Gender: F Accession No.: [id number] Location: Procedure: CT Abdomen Pelvis w/Contrast Indication: Vomiting Technique: CT of the abdomen and pelvis utilizing automated exposure control with intravenous contrast. Venous scanning performed. Axial, sagittal and coronal reformats presented. CT dose: Total DLP 528.77 mGycm; CTDI vol 10.99 mGy Comparison: None Findings: Dependent atelectasis noted in the lung bases. Heart size within normal limits. There is no pericardial effusion. Liver normal in size. No focal hepatic mass lesion is appreciated on this single phase exam. Hepatic contour appears smooth. Hepatic portal veins appear patent. There is pneumobilia. Gallbladder appears slightly contracted. Spleen is normal in size. No discrete adrenal nodule is identified. 5 mm fluid attenuation structure is noted in the body the pancreas which may represent a intraductal papillary mucinous neoplasm (IPMN). No peripancreatic inflammatory changes. No associated ductal dilatation. Kidneys enhance symmetrically. No urinary tract stone or hydronephrosis bilaterally. Significant streak artifact from hip prostheses preclude evaluation of the bladder and additional pelvic structures including the reproductive organs. A gastrostomy tube is noted in place. Enteric contrast was administered. There is apparent filling defect in the distal stomach adjacent to the retention balloon of the gastrostomy tube (series 3 image #32). This may be related to luminal contents however the possibility of a luminal mass is not entirely excluded, as it may be some associated gastric wall thickening. There is no definite evidence of small bowel obstruction. There appears to be mild fecal impaction. Again, evaluation of the pelvis is limited. There is colonic diverticulosis without definite evidence to suggest acute diverticulitis. There is osteopenia. There are degenerative changes of the spine. There is 6 nonrib-bearing lumbar-type vertebral bodies. There is grade 1 anterolisthesis of L5 on L6. L6 is sacralized. There is a 9 mm well- circumscribed sclerotic lesion in the L4 vertebral body which likely represents a bone island. Possibility of a metastatic focus thought less likely but not entirely excluded. There is a left hip arthroplasty. Fixation screws also noted within the right femoral head. There are degenerative changes of the right hip. Patient appears to be status post right mastectomy. Breast tissue in the left breast appears somewhat nodular and the possibility of masses not excludable. IMPRESSION: Exam is limited due to significant streak artifact from pelvic hardware. This significantly limits evaluation through the pelvis. Within these limitations: * Gastrostomy tube in place. Oral contrast was administered however there is filling defect in the distal stomach about the level of the retention balloon of the gastrostomy tube. This may be related to ingested contents however the possibility of an intraluminal mass is not excluded, especially as there is some possible associated gastric wall thickening. Consider further evaluation with endoscopy. * Pneumobilia noted. Findings may be related to prior sphincterotomy. Correlation with clinical history recommended. * Status post right mastectomy. Left breast tissue appears somewhat nodular and the possibility of mass is not excludable. Correlation with breast exam is recommended. * 5 mm low-attenuation structure in the body of the pancreas may represent an IPMN. * Colonic diverticulosis without evidence of acute diverticulitis. * Mild fecal impaction. * 9 mm well-circumscribed sclerotic focus in the L4 vertebral body. To represent a bone island. Bone metastasis/lesion is felt less likely. The CT scanner at [facility] is accredited by the [employer] and the scans are performed using protocols designed to limit radiation exposure to as low as reasonably achievable to attain images of sufficient resolution adequate for diagnostic evaluation. Dictated By: Sergio Jett M.D. Electronically Signed By: Sergio Jett M.D. Signed Date/Time 12/07/18 7507 CC: Kai Ramírez MD Height (Feet): 5 Height (Inches): 3.00 Weight (Pounds): 78 General Appearance: no apparent distress EENT: normal ENT inspection Neck: supple Cardiovascular: normal rate Respiratory/Chest: decreased breath sounds Abdomen: normal bowel sounds, non tender, soft Extremities: non-tender Hugo John MD December 08, 2018 12:35
[2018-12-08] MEDS: Lactulose 10gm/15ml UDC GT SCH ×2 (13:45→17:13)
--- NOTE | 2018-12-08 14:13 | General Progress Note ---
Assessment/Plan Assessment/Plan: N+V, coffee ground with DW GI. Awiting EGD. CT scan no evdence of metastatic disease. s/p Rt. Mastectomy. See orders. [facility] GI. No family or DPOA. Subjective Allergies: Coded Allergies: PENICILLINS (Verified Allergy, Unknown, 02/17/18) SULFA (SULFONAMIDE ANTIBIOTICS) (Unverified Allergy, Unknown, 10/02/18) Uncoded Allergies: SULFA (Allergy, Unknown, 02/17/18) Subjective No c/o Objective Last 24 Hour Vital Signs Date Time Temp Pulse Resp B/P (MAP) Pulse Ox O2 Delivery O2 Flow Rate FiO2 12/08/18 11:56 97.9 83 18 133/72 (92) 94 12/08/18 09:00 Room Air 12/08/18 08:00 97.7 79 18 130/72 (91) 93 12/08/18 04:00 99.4 82 16 112/66 (81) 100 12/08/18 00:00 99.5 85 18 115/68 (84) 100 12/07/18 21:00 Room Air 12/07/18 20:00 99.6 99 18 123/82 (96) 98 12/07/18 16:00 97.9 106 18 128/70 (89) 98 Intake and Output 12/07/18 12/08/18 18:59 06:59 Intake Total 1305 ml 3110 ml Output Total 751 ml Balance 1305 ml 2359 ml Free Water 150 ml 570 ml IV Total 825 ml 1825 ml Tube Feeding 330 ml 715 ml Output Urine Total 600 ml Stool Total 1 ml Emesis 150 ml # Voids 4 4 # Bowel Movements 2 1 Laboratory Tests 12/07/18 20:00: Stool Occult Blood Negative 12/08/18 06:50: White Blood Count 8.0, Red Blood Count 3.94L, Hemoglobin 12.7, Hematocrit 37.7, Mean Corpuscular Volume 96, Mean Corpuscular Hemoglobin 32.3H, Mean Corpuscular Hemoglobin Concent 33.8, Red Cell Distribution Width 11.7, Platelet Count 244, Mean Platelet Volume 7.1, Neutrophils (%) (Auto) 69.7, Lymphocytes (%) (Auto) 19.0L, Monocytes (%) (Auto) 6.7, Eosinophils (%) (Auto) 3.8H, Basophils (%) ( Auto) 0.8, Sodium Level 139, Potassium Level 3.9, Chloride Level 106, Carbon Dioxide Level 25, Anion Gap 8, Blood Urea Nitrogen 17, Creatinine 0.7, Estimat Glomerular Filtration Rate , Glucose Level 102, Hemoglobin A1c 5.3, Calcium Level 8.7, Total Bilirubin 0.4, Aspartate Amino Transf (AST/SGOT) 28, Alanine Aminotransferase (ALT/SGPT) 30, Alkaline Phosphatase 134H, Total Protein 6.5, Albumin 3.1L, Globulin 3.4, Albumin/Globulin Ratio 0.9L, Amylase Level 78, Lipase 249, Carcinoembryonic Antigen [Pending], CA 19-9 Antigen [Pending], Vitamin B12 Level 830, Folate 44.7 Height (Feet): 5 Height (Inches): 3.00 Weight (Pounds): 78 Objective [place] CV RR Lungs CTA Abd SNT. BS + E NO CCE Kai Ramírez MD December 08, 2018 14:13
--- NOTE | 2018-12-08 14:18 | NUR ---
NURSE NOTES: Dr solomon is aware about VRE RECTUM, no new order. will continue to monitor.
[2018-12-08 16:00] VITALS: BP 124/75
[2018-12-08] MEDS: Docusate 100mg/10ml Liq GT SCH (17:13)
--- NOTE | 2018-12-08 17:30 | NUR ---
NURSE NOTES: pt has 230cc g tube residual, Dr davis is aware, ordered to hold it, noted and carried out. will continue to monitor.
--- NOTE | 2018-12-08 19:29 | NUR ---
HAND-OFF: Report given to JUAN MIGUEL STRONG.REPORTED PT BE NPO FROM MID NIGHT DUE TO EGD.
--- NOTE | 2018-12-08 19:30 | NUR ---
NURSE NOTES: Received patient in bed. A&Ox1. IV site patent and intact. G-tube in place, flushed, elevated HOB. NPO midnight. Restraint on bilateral wrists, radial pulse present, no skin tear or bruise noted. Bed in lowest position. Call light within reach. Will continue to monitor.
[2018-12-08 20:00] VITALS: BP 134/78
[2018-12-08] MEDS: Miralax 17gm pkt GT SCH (20:23)
--- NOTE | 2018-12-08 22:48 | NUR ---
HAND-OFF: Report given to Clark BULLARD.
--- NOTE | 2018-12-08 23:00 | NUR ---
NURSE NOTES: Received patient in bed. A&Ox1. IV site intact. NPO midnight. Patient has on bilateral soft wrist restraints for patient safety.Bed in lowest position, bed alarm on. Call light within reach. Will continue to monitor.
[2018-12-09] VITALS (12 sets, daily range): BP systolic 118–140; BP diastolic 61–90
--- NOTE | 2018-12-09 00:30 | NUR ---
NURSE NOTES: IV access on right wrist leaking, removed. New IV on left antecubital 24 gauge.
[2018-12-09 06:34] LABS: BASOPHILS % (AUTO) 0.6 % (0.0-2.0); EOSINOPHILS % (AUTO) 2.7 % (0.0-3.0); HEMATOCRIT 36.9 % (37.0-47.0); HEMOGLOBIN 12.7 G/DL (12.0-16.0); LYMPHOCYTES % (AUTO) 23.4 % (20.0-45.0); MEAN CORPUSCULAR VOLUME 95 FL (80-99); MONOCYTES % (AUTO) 6.6 % (1.0-10.0); NEUTROPHILS % (AUTO) 66.7 % (45.0-75.0); PLATELET COUNT 221 K/UL (150-450); RED BLOOD COUNT 3.89 M/UL (4.20-5.40); RED CELL DISTRIBUTION WIDTH 11.5 % (11.6-14.8); WHITE BLOOD COUNT 7.3 K/UL (4.8-10.8)
[2018-12-09 06:42] LABS: ANION GAP 9 mmol/L (5-15); BLOOD UREA NITROGEN 13 mg/dL (7-18); CALCIUM 8.4 MG/DL (8.5-10.1); CARBON DIOXIDE 24 MMOL/L (21-32); CHLORIDE 105 MMOL/L (98-107); CREATININE 0.6 MG/DL (0.55-1.30); POTASSIUM 3.6 MMOL/L (3.5-5.1); SODIUM 138 MMOL/L (136-145)
--- NOTE | 2018-12-09 07:23 | NUR ---
HAND-OFF: Report given to JASON CHAND RN. Addendum: 12/09/18 at 0725 by ILIANA ALEXANDER RN RN ENDORSED TO AM NURSE THAT TAI CALLED AND STATED THAT PATIENT WILL EITHER BE LAST CASE OR FIRST CASE IN THE MORNING.
--- NOTE | 2018-12-09 07:40 | NUR ---
NURSE NOTES: PT RESTING IN BED, CALM. OPENS EYES SPONTANEOUSLY TO VOICE. PT DOES NOT RESPOND TO RN'S QUESTIONS. BILATERAL SOFT WRIST RESTRAINTS ON. RADIAL PULSES PALPABLE, NO SWELLING NOTED, AND SKIN INTACT. IV ACCESS OF LEFT FA ASYMPTOMATIC, PATENT, AND INTACT. PT IN HIGH ARAUZ'S POSITION WITH HOB ELEVATED. BEDSIDE RAILS X3 RAISED. BED ALARM ON. WILL CONTINUE TO MONITOR.
[2018-12-09] MEDS: D5 1/2NS w/KCl 20mEq 1,000 ML IV SCH (08:01)
[2018-12-09] MEDS: Heparin 5000 units/ml inj SUBQ SCH ×2 (08:02→20:38)
[2018-12-09] MEDS: Docusate 100mg/10ml Liq GT SCH ×2 (08:02→18:36)
[2018-12-09] MEDS: Lactulose 10gm/15ml UDC GT SCH ×3 (08:02→18:36)
--- NOTE | 2018-12-09 12:34 | General Progress Note ---
Assessment/Plan Problem List: (1) Diverticulosis ICD Codes: K57.90 - Diverticulosis of intestine, part unspecified, without perforation or abscess without bleeding SNOMED: 788834811 (2) Fecal impaction ICD Codes: K56.41 - Fecal impaction SNOMED: 30505461 (3) H/O malignant neoplasm of breast ICD Codes: Z85.3 - Personal history of malignant neoplasm of breast SNOMED: 359873384 (4) Pancreatic cyst ICD Codes: K86.2 - Cyst of pancreas SNOMED: 15853859 (5) G tube feedings ICD Codes: Z93.1 - Gastrostomy status SNOMED: 232409898, 314664041 (6) Vomiting ICD Codes: R11.10 - Vomiting, unspecified SNOMED: 760985602 (7) Coffee ground emesis ICD Codes: K92.0 - Hematemesis SNOMED: 16788220, 853290184 Assessment/Plan: ppi bowel regimen GTF plan EGD today fu tumor markers Subjective ROS Limited/Unobtainable: No Allergies: Coded Allergies: PENICILLINS (Verified Allergy, Unknown, 02/17/18) SULFA (SULFONAMIDE ANTIBIOTICS) (Unverified Allergy, Unknown, 10/02/18) Uncoded Allergies: SULFA (Allergy, Unknown, 02/17/18) Objective Last 24 Hour Vital Signs Date Time Temp Pulse Resp B/P (MAP) Pulse Ox O2 Delivery O2 Flow Rate FiO2 12/09/18 12:00 98.0 76 18 125/71 (89) 98 12/09/18 09:00 Room Air 12/09/18 08:00 97.9 82 18 120/66 (84) 96 12/09/18 04:50 97.5 101 18 135/88 (104) 98 12/09/18 00:00 97.3 103 20 140/90 (107) 98 12/08/18 21:00 Room Air 12/08/18 20:00 97.4 96 20 134/78 (96) 97 12/08/18 16:00 97.5 84 19 124/75 (91) 95 Intake and Output 12/08/18 12/09/18 19:00 07:00 Intake Total 1675 ml 825 ml Balance 1675 ml 825 ml Free Water 300 ml IV Total 825 ml 825 ml Tube Feeding 550 ml 0 ml # Voids 2 # Bowel Movements 1 Laboratory Tests 12/09/18 04:45: White Blood Count 7.3, Red Blood Count 3.89L, Hemoglobin 12.7, Hematocrit 36.9L , Mean Corpuscular Volume 95, Mean Corpuscular Hemoglobin 32.8H, Mean Corpuscular Hemoglobin Concent 34.5, Red Cell Distribution Width 11.5L, Platelet Count 221, Mean Platelet Volume 6.8, Neutrophils (%) (Auto) 66.7, Lymphocytes (%) (Auto) 23.4, Monocytes (%) (Auto) 6.6, Eosinophils (%) (Auto) 2.7, Basophils (%) (Auto) 0.6, Sodium Level 138, Potassium Level 3.6, Chloride Level 105, Carbon Dioxide Level 24, Anion Gap 9, Blood Urea Nitrogen 13, Creatinine 0.6, Estimat Glomerular Filtration Rate , Glucose Level 93, Calcium Level 8.4L Height (Feet): 5 Height (Inches): 3.00 Weight (Pounds): 78 General Appearance: no apparent distress EENT: normal ENT inspection Neck: supple Cardiovascular: normal rate Respiratory/Chest: decreased breath sounds Abdomen: normal bowel sounds, non tender, soft Extremities: non-tender Hugo John MD December 09, 2018 12:34
--- NOTE | 2018-12-09 13:44 | NUR ---
RD ASSESSMENT & RECOMMENDATIONS SEE CARE ACTIVITY FOR COMPLETE ASSESSMENT DAILY ESTIMATED NEEDS: Needs based on Severely underweight, metastatic CA/ 37kg 35-40 kcals/kg 3351-0896 total kcals 1-2 g protein/kg 37-74 g total protein 25-30 mL/kg 925-1110 total fluid mLs NUTRITION DIAGNOSIS: * Increased kcal/pro needs R/T for wt gain, catabolic dx as evidenced by severely underweight status w/ BMI 14.9, pt @ 74% IBW, dx of metastatic breast cancer. * Swallowing difficulty R/T dysphagia as evidenced by PEG dep, currently NPO, pending EGD, admitted w/ c/o coffee ground emesis. CURRENT TF:NPO ENTERAL NUTRITION RECOMMENDATIONS: Jevity 1.2 @ 50ml/hr x 24 hrs to provide 1200ml, 1440kcal, 67g prot, 968ml free water * As medically appropriate, initiate Jevity 1.2 @ 20ml/hr x 6 hrs, advance 10ml q 4-6 hrs as tolerated to goal rate * HOB over 30 degrees/ water flush per MD. ADDITIONAL RECOMMENDATIONS: * Calibrated bedscale wt for accurate CBW * Per SNF, pt's HT=62", WT=81lbs (obtained end of October) * Weekly wt monitoring given underweight status * Monitor lytes, replete as needed . .
--- NOTE | 2018-12-09 13:58 | Pre-Procedure Note/Attestation ---
Pre-Procedure Note/Attestation Complete Prior to Procedure Planned Procedure: not applicable Procedure Narrative: egd Indications for Procedure Pre-Operative Diagnosis: gib Attestation I attest that I discussed the nature of the procedure; its benefits; risks and complications; and alternatives (and the risks and benefits of such alternatives ), prior to the procedure, with the patient (or the patient's legal call center representative). I attest that, if there was a reasonable possibility of needing a blood transfusion, the patient (or the patient's legal call center representative) was given the [facility] standardized written summary, pursuant to the [place] Blood Safety Act ([place] Health and Safety Code # 1645, as amended). I attest that I re-evaluated the patient just prior to the surgery and that there has been no change in the patient's H&P, except as documented below: Hugo John MD December 09, 2018 13:58
--- NOTE | 2018-12-09 14:22 | Anethesia Preoperative Eval ---
Anesthesia Pre-op PMH/ROS General Date of Evaluation: December 09, 2018 Time of Evaluation: 14:18 Anesthesiologist: Katalina Garcia CRNA ASA Score: ASA 3 Mallampati Score Class I : Soft palate, uvula, fauces, pillars visible Class II: Soft palate, uvula, fauces visible Class III: Soft palate, base of uvula visible Class IV: Only hard plate visible Mallampati Classification: Class II Surgeon: Alvaro Diagnosis: persistent vomiting, dehydration Surgical Procedure: EGD Anesthesia History: none Social History: smoking Allergies: Coded Allergies: PENICILLINS (Verified Allergy, Unknown, 02/17/18) SULFA (SULFONAMIDE ANTIBIOTICS) (Unverified Allergy, Unknown, 10/02/18) Uncoded Allergies: SULFA (Allergy, Unknown, 02/17/18) Medications: see eMAR Patient NPO?: Yes NPO Date: December 09, 2018 NPO Time: 00:00 Past Medical History Cardiovascular: Reports: HTN; Denies: CAD, NC, valve dz, arrhythmia, other Pulmonary: Denies: asthma, COPD, SHIELA, other Gastrointestinal/Genitourinary: Reports: GERD, other - FTT, dehydration, diverticulosis, pancreatic cyst; g-tube, dysphagia; Denies: CRI, ESRD Neurologic/Psychiatric: Reports: depression/anxiety, other - schizophrenia, bipolar disorder; Denies: dementia, CVA, TIA Endocrine: Denies: DM, hypothyroidism, steroids, other HEENT: Denies: cataract (L), cataract (R), glaucoma, [employer] (L), [employer] (R), other Hematology/Immune: Denies: anemia, DVT, bleeding disorder, other Musculoskeletal/Integumentary: Reports: OA, other - Breast CA; Denies: RA, DJD, DDD, edema PMH Narrative: as noted above PSxH Narrative: see H & P Anesthesia Pre-op Phys. Exam Physician Exam Last Vital Signs Date Time Temp Pulse Resp B/P (MAP) Pulse Ox O2 Delivery O2 Flow Rate FiO2 12/09/18 12:00 98.0 76 18 125/71 (89) 98 12/09/18 09:00 Room Air Constitutional: NAD, other - emaciated Neurologic: other - dementia Cardiovascular: RRR Respiratory: CTA Gastrointestinal: S/NT/ND, other - g-tube Airway Exam Mallampati Score: Class II MO: full Teeth: other - unable to asess, noncooperative Dentures: no upper, no lower Anesthesia Pre-op A/P Labs Hematology Test 12/09/18 04:45 White Blood Count 7.3 K/UL (4.8-10.8) Red Blood Count 3.89 M/UL (4.20-5.40) L Hemoglobin 12.7 G/DL (12.0-16.0) Hematocrit 36.9 % (37.0-47.0) L Mean Corpuscular Volume 95 FL (80-99) Mean Corpuscular Hemoglobin 32.8 PG (27.0-31.0) H Mean Corpuscular Hemoglobin Concent 34.5 G/DL (32.0-36.0) Red Cell Distribution Width 11.5 % (11.6-14.8) L Platelet Count 221 K/UL (150-450) Mean Platelet Volume 6.8 FL (6.5-10.1) Neutrophils (%) (Auto) 66.7 % (45.0-75.0) Lymphocytes (%) (Auto) 23.4 % (20.0-45.0) Monocytes (%) (Auto) 6.6 % (1.0-10.0) Eosinophils (%) (Auto) 2.7 % (0.0-3.0) Basophils (%) (Auto) 0.6 % (0.0-2.0) Chemistry Test 12/09/18 04:45 Sodium Level 138 MMOL/L (136-145) Potassium Level 3.6 MMOL/L (3.5-5.1) Chloride Level 105 MMOL/L (98-107) Carbon Dioxide Level 24 MMOL/L (21-32) Anion Gap 9 mmol/L (5-15) Blood Urea Nitrogen 13 mg/dL (7-18) Creatinine 0.6 MG/DL (0.55-1.30) Estimat Glomerular Filtration Rate mL/min (>60) Glucose Level 93 MG/DL (74-106) Calcium Level 8.4 MG/DL (8.5-10.1) L Studies Pre-op Studies: EKG - sinus tachycardia, left axis deviation possible anteroseptal infarct, CXR - no acute cardiopulmonary disease Risk Assessment & Plan Assessment: ASA 3, ok to proceed Plan: MAC Status Change Before Surgery: No Pre-Antibiotics Given Within 1 Hr of Incision: No Katalina Garcia CRNA December 09, 2018 14:22
[2018-12-09] MEDS ORDERED: NS 500ML IVPB ONE (14:25)
[2018-12-09] MEDS ORDERED: Lidocaine 1% MPF 10mg/ml 5ml ONE (14:26)
[2018-12-09] MEDS ORDERED: NS 500ML ONE (14:26)
[2018-12-09] MEDS ORDERED: Propofol 200mg/20ml IV ONE (14:26)
--- NOTE | 2018-12-09 14:29 | NUR ---
NURSE NOTES: PT OFF UNIT FOR EGD.
--- NOTE | 2018-12-09 14:34 | Endoscopy Procedure Note ---
Endoscopy Procedure Note General Indication for Procedure: gib Procedures Performed: EGD Operative Findings/Diagnosis: gastritis Specimen: yes Pt Tolerated Procedure Well: Yes Estimated Blood Loss: none Anesthesia Anesthesiologist: antwon Anesthesia: MAC Inserted Devices Implant(s) used?: No GI Core Measures 50 yrs or older w/o bx or poly: Not Applicable 10yrs. F/U not recommended: Not Applicable Hugo John MD December 09, 2018 14:34
--- NOTE | 2018-12-09 14:40 | NUR ---
[employer] SI:DIVERTICULOSIS . FECAL IMPACTION VS: BP 140/90, P 98, T 97.3, RR 20, SpO2 96 RBC 3.89, HCT 36.9 IS:LANSOPRAZOLE 30mg CEPHULAC 10gm D5/ELECTROLYTES x1L IV MED/SURG
--- NOTE | 2018-12-09 15:01 | Immediate Post-Op Evaluation ---
Immediate Post-Op Evalulation Immediate Post-Op Evalulation Procedure: EGD Date of Evaluation: December 09, 2018 Time of Evaluation: 14:51 IV Fluids: 0.9 NS 50 ml Blood Pressure Systolic: 127 Blood Pressure Diastolic: 80 Pulse Rate: 87 Respiratory Rate: 24 O2 Sat by Pulse Oximetry: 99 Temperature (Fahrenheit): 97.3 Pain Score (1-10): 0 Nausea: No Vomiting: No Complications none Patient Status: awake, patent Hydration Status: adequate Given Within 1 Hr of Incision: Katalina Harris CRNA December 09, 2018 15:01
--- NOTE | 2018-12-09 15:17 | General Progress Note ---
Assessment/Plan Assessment/Plan: N+V, coffee ground with [facility]. Having endoscopies. CT scan no evidence of metastatic disease. s/p Rt. Mastectomy. See orders. [facility]. No family or DPOA. Subjective Allergies: Coded Allergies: PENICILLINS (Verified Allergy, Unknown, 02/17/18) SULFA (SULFONAMIDE ANTIBIOTICS) (Unverified Allergy, Unknown, 10/02/18) Uncoded Allergies: SULFA (Allergy, Unknown, 02/17/18) Subjective No c/o Objective Last 24 Hour Vital Signs Date Time Temp Pulse Resp B/P (MAP) Pulse Ox O2 Delivery O2 Flow Rate FiO2 12/09/18 15:01 87 24 99 12/09/18 12:00 98.0 76 18 125/71 (89) 98 12/09/18 09:00 Room Air 12/09/18 08:00 97.9 82 18 120/66 (84) 96 12/09/18 04:50 97.5 101 18 135/88 (104) 98 12/09/18 00:00 97.3 103 20 140/90 (107) 98 12/08/18 21:00 Room Air 12/08/18 20:00 97.4 96 20 134/78 (96) 97 12/08/18 16:00 97.5 84 19 124/75 (91) 95 Intake and Output 12/08/18 12/09/18 18:59 06:59 Intake Total 1730 ml 750 ml Balance 1730 ml 750 ml Free Water 300 ml IV Total 825 ml 750 ml Tube Feeding 605 ml # Voids 2 # Bowel Movements 1 Laboratory Tests 12/09/18 04:45: White Blood Count 7.3, Red Blood Count 3.89L, Hemoglobin 12.7, Hematocrit 36.9L , Mean Corpuscular Volume 95, Mean Corpuscular Hemoglobin 32.8H, Mean Corpuscular Hemoglobin Concent 34.5, Red Cell Distribution Width 11.5L, Platelet Count 221, Mean Platelet Volume 6.8, Neutrophils (%) (Auto) 66.7, Lymphocytes (%) (Auto) 23.4, Monocytes (%) (Auto) 6.6, Eosinophils (%) (Auto) 2.7, Basophils (%) (Auto) 0.6, Sodium Level 138, Potassium Level 3.6, Chloride Level 105, Carbon Dioxide Level 24, Anion Gap 9, Blood Urea Nitrogen 13, Creatinine 0.6, Estimat Glomerular Filtration Rate , Glucose Level 93, Calcium Level 8.4L Height (Feet): 5 Height (Inches): 3.00 Weight (Pounds): 78 Objective [place] CV RR Lungs CTA Abd SNT. BS + E NO CCE Kai Ramírez MD December 09, 2018 15:17
--- NOTE | 2018-12-09 16:45 | NUR ---
NURSE NOTES: PT BACK ON UNIT. IN NO APPARENT DISTRESS AT THIS TIME. PT WAS REPOSITIONED AND RECONNECTED TO IVF AND GTUBE FEEDING. WILL CONTINUE TO MONITOR.
--- NOTE | 2018-12-09 18:56 | NUR ---
HAND-OFF: Report given to Paz ALEXANDER RN.
--- NOTE | 2018-12-09 19:25 | NUR ---
NURSE NOTES: Received patient in bed, awake. IV site patent and intact. G-tube in place, flushed, 10 cc residuals noted, tolerating tube feeding elevated HOB. NPO midnight. Patient on bilateral soft wrist restraints for patient safety. Bed in lowest position. Call light within reach. Bed alarm on. Will continue to monitor. Addendum: 12/09/18 at 1935 by ILIANA ALEXANDER RN RN Disregard entry, patient is not npo at midnight.
--- NOTE | 2018-12-09 19:25 | NUR ---
NURSE NOTES: Received patient in bed, awake. IV site patent and intact. G-tube in place, flushed, 10 cc residuals noted, tolerating tube feeding, elevated HOB. Patient on bilateral soft wrist restraints for patient safety. Bed in lowest position. Call light within reach. Bed alarm on. Will continue to monitor.
[2018-12-09] MEDS: Miralax 17gm pkt GT SCH (20:33)
--- NOTE | 2018-12-09 21:00 | NUR ---
NURSE NOTES: RESIDUALS NOTED 135 CC, HELD TUBE FEEDING.
--- NOTE | 2018-12-09 21:30 | Procedure Note ---
DATE OF PROCEDURE: 12/09/2018 SURGEON: Hugo John M.D. PROCEDURE: Upper endoscopy with biopsy. ANESTHESIA: Per Katalina DAVID. INSTRUMENT: Olympus adult flexible upper endoscope. INDICATION: GI bleeding. REASON FOR PROCEDURE: The procedure, risks, benefits, and possible consequences, including hemorrhage, aspiration, perforation and infection, and alternative treatments, were explained to the patient/legal guardian by Dr. Hugo John and the patient/legal guardian understood and accepted these risks. PROCEDURE IN DETAIL: After informed consent was obtained and the patient was adequately sedated, Olympus upper endoscope was advanced from the mouth to the second portion of the duodenum and retroflexion was performed in the stomach. The patient has evidence of 4 cm of hiatal hernia with associated severe distal esophagitis. In the stomach, there was diffuse gastritis. Balloon-type G-tube was seen in place without any obvious bleeding around it. At this time, we biopsied the antrum and for gastritis to rule out H. pylori infection. The scope was retrieved. No obvious mass was seen in this endoscopic examination. SUMMARY OF FINDINGS: 1. Hiatal hernia with associated distal esophagitis. 2. Gastritis, status post biopsy. 3. Intact G-tube. RECOMMENDATIONS: 1. Reflux measures. 2. PPI twice a day. 3. Resume tube feeding. 4. Followup pathology. I want to thank, Dr. Ramírez, for this kind referral. Hugo John M.D. DR: KESHAWN JOB#: [id number] CC: Kai Ramírez M.D.; Fax#: [phone]
--- NOTE | 2018-12-10 | NUR ---
NURSE NOTES: NO MORE RESIDUALS, RESTARTED TUBE FEEDING.
[2018-12-10 00:13] VITALS: BP 122/79
[2018-12-10] MEDS: D5 1/2NS w/KCl 20mEq 1,000 ML IV SCH ×2 (00:29→12:56)
[2018-12-10 04:17] VITALS: BP 121/82
--- NOTE | 2018-12-10 05:00 | NUR ---
NURSE NOTES: PATIENT TOLERATING TUBE FEEDING AT 55 ML/HR, NO RESIDUALS.
--- NOTE | 2018-12-10 05:50 | NUR ---
NURSE NOTES: PATIENT V/S STABLE, NO DISTRESS.
[2018-12-10 07:12] LABS: ANION GAP 7 mmol/L (5-15); BLOOD UREA NITROGEN 10 mg/dL (7-18); CALCIUM 8.4 MG/DL (8.5-10.1); CARBON DIOXIDE 27 MMOL/L (21-32); CHLORIDE 105 MMOL/L (98-107); CREATININE 0.6 MG/DL (0.55-1.30); POTASSIUM 3.9 MMOL/L (3.5-5.1); SODIUM 139 MMOL/L (136-145)
--- NOTE | 2018-12-10 07:36 | NUR ---
HAND-OFF: Report given to KAHLIL MCGARRY LVN.
[2018-12-10 07:39] LABS: BASOPHILS % (AUTO) 0.8 % (0.0-2.0); EOSINOPHILS % (AUTO) 4.2 % (0.0-3.0); HEMATOCRIT 35.4 % (37.0-47.0); HEMOGLOBIN 12.2 G/DL (12.0-16.0); LYMPHOCYTES % (AUTO) 17.4 % (20.0-45.0); MEAN CORPUSCULAR VOLUME 94 FL (80-99); MONOCYTES % (AUTO) 6.4 % (1.0-10.0); NEUTROPHILS % (AUTO) 71.2 % (45.0-75.0); PLATELET COUNT 244 K/UL (150-450); RED BLOOD COUNT 3.75 M/UL (4.20-5.40); RED CELL DISTRIBUTION WIDTH 11.3 % (11.6-14.8); WHITE BLOOD COUNT 6.1 K/UL (4.8-10.8)
[2018-12-10 08:00] VITALS: BP 114/72
--- NOTE | 2018-12-10 08:00 | NUR ---
NURSE NOTES: Received patient in bed, a/a/ox1, IV site patent and intact. G-tube in place, flushed, 60cc residuals noted, feeding off temporarily. HOB elevated. Patient on bilateral soft wrist restraints due to combativeness and removing devices. Bed in lowest position. bed alarm on. Call light within reach. Bed alarm on. Will continue to monitor.
[2018-12-10] MEDS: Docusate 100mg/10ml Liq GT SCH ×2 (08:59→17:10)
[2018-12-10] MEDS: Lactulose 10gm/15ml UDC GT SCH ×3 (08:59→17:11)
[2018-12-10] MEDS: Heparin 5000 units/ml inj SUBQ SCH ×2 (09:07→20:59)
--- NOTE | 2018-12-10 10:19 | General Progress Note ---
Assessment/Plan Assessment/Plan: N+V, coffee ground with [facility]. EGD - gastritis. CT scan no evidence of metastatic disease. s/p Rt. Mastectomy. GS to advise. See orders. [facility] GI. No family or DPOA. Subjective Allergies: Coded Allergies: PENICILLINS (Verified Allergy, Unknown, 02/17/18) SULFA (SULFONAMIDE ANTIBIOTICS) (Unverified Allergy, Unknown, 10/02/18) Uncoded Allergies: SULFA (Allergy, Unknown, 02/17/18) Subjective No c/o Objective Last 24 Hour Vital Signs Date Time Temp Pulse Resp B/P (MAP) Pulse Ox O2 Delivery O2 Flow Rate FiO2 12/10/18 09:16 Room Air 12/10/18 08:00 99.0 85 24 114/72 (86) 97 12/10/18 04:17 98.8 84 18 121/82 (95) 96 12/10/18 00:13 98.1 95 18 122/79 (93) 96 12/09/18 21:00 Room Air 12/09/18 20:15 97.6 92 18 118/61 (80) 96 12/09/18 16:00 98.8 72 18 130/70 (90) 96 12/09/18 15:30 97.9 90 18 124/71 96 Nasal Cannula 3 12/09/18 15:15 97.3 82 20 132/73 99 Nasal Cannula 3 12/09/18 15:05 79 24 126/69 99 Nasal Cannula 3 12/09/18 15:01 87 24 99 12/09/18 15:00 76 24 122/79 99 Nasal Cannula 3 12/09/18 14:55 70 24 125/67 99 Nasal Cannula 3 12/09/18 14:51 97.3 87 24 127/80 99 Nasal Cannula 3 12/09/18 12:00 98.0 76 18 125/71 (89) 98 Intake and Output 12/09/18 12/10/18 19:00 07:00 Intake Total 1045 ml 1115 ml Balance 1045 ml 1115 ml Free Water 100 ml 100 ml IV Total 725 ml 600 ml Tube Feeding 220 ml 415 ml Laboratory Tests 12/10/18 06:10: White Blood Count 6.1, Red Blood Count 3.75L, Hemoglobin 12.2, Hematocrit 35.4L , Mean Corpuscular Volume 94, Mean Corpuscular Hemoglobin 32.6H, Mean Corpuscular Hemoglobin Concent 34.6, Red Cell Distribution Width 11.3L, Platelet Count 244, Mean Platelet Volume 7.3, Neutrophils (%) (Auto) 71.2, Lymphocytes (%) (Auto) 17.4L, Monocytes (%) (Auto) 6.4, Eosinophils (%) (Auto) 4.2H, Basophils (%) (Auto) 0.8, Sodium Level 139, Potassium Level 3.9, Chloride Level 105, Carbon Dioxide Level 27, Anion Gap 7, Blood Urea Nitrogen 10, Creatinine 0.6, Estimat Glomerular Filtration Rate , Glucose Level 101, Calcium Level 8.4L Height (Feet): 5 Height (Inches): 3.00 Weight (Pounds): 78 Objective [place] CV RR Lungs CTA Abd SNT. BS + E NO CCE Kai Ramírez MD December 10, 2018 10:19
[2018-12-10 12:00] VITALS: BP 128/79
[2018-12-10 16:00] VITALS: BP 120/69
--- NOTE | 2018-12-10 16:00 | Consultation ---
History of Present Illness General Date patient seen: December 10, 2018 Reason for Hospitalization: Vomiting Present Illness HPI This is a very pleasant 78-year-old female with multiple medical comorbidities who is a shelter resident that presented with coffee-ground emesis and abdominal discomfort. Currently status post EGD with identification and gastritis. CT scan performed during hospitalization and identified nodularity in the breast status post mastectomy for breast cancer. Surgery called to evaluate and assist with care. Patient seen, patient evaluated, chart reviewed. Patient awake alert and comfortable with contracted extremities. Patient responsive and states she is doing well. Allergies: Coded Allergies: PENICILLINS (Verified Allergy, Unknown, 02/17/18) SULFA (SULFONAMIDE ANTIBIOTICS) (Unverified Allergy, Unknown, 10/02/18) Uncoded Allergies: SULFA (Allergy, Unknown, 02/17/18) Medication History Scheduled Ascorbic Acid* (Ascorbic Acid*), 500 MG ORAL DAILY, (Reported) Docusate Sodium* (Colace*), 100 MG GT TWICE A DAY, (Reported) Donepezil Hcl* (Aricept*), 10 MG GT DAILY, (Reported) Multivitamins* (Multivitamins*), 1 TAB GT DAILY, (Reported) Omeprazole (Omeprazole), 20 MG ORAL DAILY, (Reported) Zinc Sulfate (Zinc Sulfate*), 220 MG ORAL DAILY, (Reported) Scheduled PRN Acetaminophen* (Tylenol Extra Strength*), 1,000 MG GT Q4HR PRN for Mild Pain/ Temp > 100.5, (Reported) Acetaminophen* (Acetaminophen 325MG Tablet*), 650 MG ORAL Q4H PRN for Mild Pain (Pain Scale 1-3), (Reported) Magnesium Hydroxide* (Milk Of Magnesia*), 30 ML GT DAILY PRN for Constipation, ( Reported) Miscellaneous Medications Sennosides (Senna), 8.6 MG PO, (Reported) Vancomycin Hcl/D5w (Vancomycin-D5w 500 Mg/100 Ml), 500 MG IV, (Reported) Discontinued Medications Lansoprazole* (Lansoprazole*), 30 MG GT DAILY Discontinued Reason: Therapy completed Ondansetron* (Zofran*), 4 MG IVP Q6H PRN Discontinued Reason: Therapy completed Patient History Limited by: medical condition History Provided By: Patient, Medical Record, PMD Healthcare decision maker Resuscitation status Full Code Advanced Directive on File Past Medical/Surgical History Past Medical/Surgical History: (1) Severe malnutrition (2) Vomiting (3) Dehydration (4) Coffee ground emesis (5) Diverticulosis (6) Fecal impaction (7) Pancreatic cyst (8) G tube feedings (9) H/O malignant neoplasm of breast Review of Systems Review of Symptoms General ROS: no weight loss or fever Psychological ROS: no depression or mood changes, no memory loss Ophthalmic ROS: no visual changes or eye irritation ENT ROS: no nasal congestion, hearing loss, dizziness Allergy and Immunology ROS: no allergic symptoms or urticaria Hematological and Lymphatic ROS: no swollen glands, unusual bleeding or bruising Endocrine ROS: no polyuria, polydipsia, weight changes, temperature intolerance Respiratory ROS: no cough, shortness of breath, or wheezing Cardiovascular ROS: no chest pain or dyspnea on exertion Gastrointestinal ROS: denies abdominal pain, no bright red blood in stool. Musculoskeletal ROS: no myalgias or arthralgias Neurological ROS: no TIA or stroke symptoms Dermatological ROS: no new or changing skin lesions, rashes or pruritis Physical Exam Physical Exam General appearance: alert, cooperative, no distress, appears stated age Head: Normocephalic, without obvious abnormality, atraumatic Eyes: conjunctivae/corneas clear. PERRL, EOM's intact. Fundi benign Throat: Lips, mucosa, and tongue normal. Teeth and gums normal Neck: supple, symmetrical, trachea midline, no adenopathy, thyroid: not enlarged, symmetric, no tenderness/mass/nodules, no carotid bruit and no JVD Lungs: clear to auscultation bilaterally Heart: regular rate and rhythm, S1, S2 normal, no murmur, click, rub or gallop Abdomen: soft, non-tender. Bowel sounds normal. No masses, no organomegaly. feeding tube in place Extremities: extremities contracted Pulses: 2+ and symmetric Skin: s/p mastectomy with Neurologic: Grossly normal Last 24 Hour Vital Signs Date Time Temp Pulse Resp B/P (MAP) Pulse Ox O2 Delivery O2 Flow Rate FiO2 12/10/18 12:00 98.5 95 24 128/79 (95) 98 12/10/18 09:16 Room Air 12/10/18 08:00 99.0 85 24 114/72 (86) 97 12/10/18 04:17 98.8 84 18 121/82 (95) 96 12/10/18 00:13 98.1 95 18 122/79 (93) 96 12/09/18 21:00 Room Air 12/09/18 20:15 97.6 92 18 118/61 (80) 96 12/09/18 16:00 98.8 72 18 130/70 (90) 96 Intake and Output 12/09/18 12/10/18 18:59 06:59 Intake Total 990 ml 1245 ml Balance 990 ml 1245 ml Free Water 100 ml 100 ml IV Total 725 ml 675 ml Tube Feeding 165 ml 470 ml Laboratory Tests Test 12/10/18 06:10 White Blood Count 6.1 K/UL (4.8-10.8) Red Blood Count 3.75 M/UL (4.20-5.40) L Hemoglobin 12.2 G/DL (12.0-16.0) Hematocrit 35.4 % (37.0-47.0) L Mean Corpuscular Volume 94 FL (80-99) Mean Corpuscular Hemoglobin 32.6 PG (27.0-31.0) H Mean Corpuscular Hemoglobin Concent 34.6 G/DL (32.0-36.0) Red Cell Distribution Width 11.3 % (11.6-14.8) L Platelet Count 244 K/UL (150-450) Mean Platelet Volume 7.3 FL (6.5-10.1) Neutrophils (%) (Auto) 71.2 % (45.0-75.0) Lymphocytes (%) (Auto) 17.4 % (20.0-45.0) L Monocytes (%) (Auto) 6.4 % (1.0-10.0) Eosinophils (%) (Auto) 4.2 % (0.0-3.0) H Basophils (%) (Auto) 0.8 % (0.0-2.0) Sodium Level 139 MMOL/L (136-145) Potassium Level 3.9 MMOL/L (3.5-5.1) Chloride Level 105 MMOL/L (98-107) Carbon Dioxide Level 27 MMOL/L (21-32) Anion Gap 7 mmol/L (5-15) Blood Urea Nitrogen 10 mg/dL (7-18) Creatinine 0.6 MG/DL (0.55-1.30) Estimat Glomerular Filtration Rate mL/min (>60) Glucose Level 101 MG/DL (74-106) Calcium Level 8.4 MG/DL (8.5-10.1) L Height (Feet): 5 Height (Inches): 3.00 Weight (Pounds): 78 Medications Current Medications Medications (Trade) Dose Ordered Sig/Kel Route PRN Reason Start Time Stop Time Status Last Admin Dose Admin Dextrose/ Electrolytes 1,000 ml @ 75 mls/hr [id number] IV 12/06/18 02:45 01/05/19 02:44 12/10/18 12:56 Docusate Sodium (Colace) 100 mg TWICE A DAY GT 12/08/18 18:00 01/07/19 17:59 12/10/18 08:59 Heparin Sodium (Porcine) (Heparin 5000 units/ml) 5,000 units EVERY 12 HOURS SUBQ 12/06/18 09:00 01/05/19 08:59 12/10/18 09:07 Lactulose (Cephulac) 10 gm THREE TIMES A DAY GT 12/08/18 13:00 01/07/19 12:59 12/10/18 12:57 Lansoprazole (Prevacid) 30 mg DAILY GT 12/09/18 09:00 01/08/19 08:59 12/10/18 09:00 Ondansetron HCl (Zofran) 4 mg Q6H PRN IVP Nausea & Vomiting 12/06/18 04:30 01/05/19 04:29 Polyethylene Glycol (Miralax) 17 gm BEDTIME GT 12/08/18 21:00 01/07/19 20:59 12/09/18 20:33 Assessment/Plan Problem List: (1) Vomiting Assessment & Plan: gastritis on ppi as per GI ICD Codes: R11.10 - Vomiting, unspecified SNOMED: 366597638 (2) Dehydration ICD Codes: E86.0 - Dehydration SNOMED: 72622902 (3) Coffee ground emesis ICD Codes: K92.0 - Hematemesis SNOMED: 77558601, 344353767 (4) Diverticulosis ICD Codes: K57.90 - Diverticulosis of intestine, part unspecified, without perforation or abscess without bleeding SNOMED: 547910471 (5) Fecal impaction ICD Codes: K56.41 - Fecal impaction SNOMED: 77572447 (6) Pancreatic cyst ICD Codes: K86.2 - Cyst of pancreas SNOMED: 46293784 (7) G tube feedings ICD Codes: Z93.1 - Gastrostomy status SNOMED: 775686900, 894408267 (8) H/O malignant neoplasm of breast Assessment & Plan: Hx of right mastectomy for breast cancer. small left breast periareola incision noted as well. patient unable to let me know how long ago surgery was but does recall having mastectomy prior surgical site well healed CT with multiple nodularities noted exam stable with well healed right breast surgical scar and no new masses noted. left breast with nodularities but no discreet mass noted can have outpatient mammography if desired thank you ICD Codes: Z85.3 - Personal history of malignant neoplasm of breast SNOMED: 729642534 (9) Severe malnutrition Assessment & Plan: Pt emaciated and contracted in foetal position. Skin assessment of all bony prominences completed. No evidence of skin breakdown noted to bony prominences including both elbows both hips ,sacrum and bilat ischial regions. Bilat heels and malleoli are pink and blanchable.Pt is continent of bowel and bladder . Cavilon Applied bony prominences. Optifoam drsg applied to sacrum,both hips ,both heels and malleoli. Triad paste applied to perineal areas. Pt positioned in bed with both heels floated off mattress. Recommendations. Apply Triad paste to sacrum .Cover with Optifoam drsg. Change every 3 days and prn. Apply Cavilon wipes to bony prominences and cover areas with Optifoam drsg prn. Apply Cavilon Skin Barrier to both heels. Cover each heel with Optifoam drsgs. Change every 7 days and prn. Reposition at least every 2hours or as tolerated. Off-load Heels with pillow. ICD Codes: E43 - Unspecified severe protein-calorie malnutrition SNOMED: 83577927 Santos Mccormick December 10, 2018 16:00
--- NOTE | 2018-12-10 17:29 | General Progress Note ---
Assessment/Plan Assessment/Plan: Assessment (1) Diverticulosis ICD Codes: K57.90 - Diverticulosis of intestine, part unspecified, without perforation or abscess without bleeding SNOMED: 306763487 (2) Fecal impaction ICD Codes: K56.41 - Fecal impaction SNOMED: 01252125 (3) H/O malignant neoplasm of breast ICD Codes: Z85.3 - Personal history of malignant neoplasm of breast SNOMED: 765075311 (4) Pancreatic cyst ICD Codes: K86.2 - Cyst of pancreas SNOMED: 70751810 (5) G tube feedings ICD Codes: Z93.1 - Gastrostomy status SNOMED: 656938683, 627974044 (6) Vomiting ICD Codes: R11.10 - Vomiting, unspecified SNOMED: 854811974 (7) Coffee ground emesis ICD Codes: K92.0 - Hematemesis SNOMED: 11274815, 253437289 Assessment/Plan: ppi bowel regimen GTF monitor for recurrent bleeding fu tumor markers Subjective Allergies: Coded Allergies: PENICILLINS (Verified Allergy, Unknown, 02/17/18) SULFA (SULFONAMIDE ANTIBIOTICS) (Unverified Allergy, Unknown, 10/02/18) Uncoded Allergies: SULFA (Allergy, Unknown, 02/17/18) Subjective calm tolerating TF no complaints Objective Last 24 Hour Vital Signs Date Time Temp Pulse Resp B/P (MAP) Pulse Ox O2 Delivery O2 Flow Rate FiO2 12/10/18 16:00 98.5 86 21 120/69 (86) 95 12/10/18 12:00 98.5 95 24 128/79 (95) 98 12/10/18 09:16 Room Air 12/10/18 08:00 99.0 85 24 114/72 (86) 97 12/10/18 04:17 98.8 84 18 121/82 (95) 96 12/10/18 00:13 98.1 95 18 122/79 (93) 96 12/09/18 21:00 Room Air 12/09/18 20:15 97.6 92 18 118/61 (80) 96 Intake and Output 12/09/18 12/10/18 18:59 06:59 Intake Total 990 ml 1245 ml Balance 990 ml 1245 ml Free Water 100 ml 100 ml IV Total 725 ml 675 ml Tube Feeding 165 ml 470 ml Laboratory Tests 12/10/18 06:10: White Blood Count 6.1, Red Blood Count 3.75L, Hemoglobin 12.2, Hematocrit 35.4L , Mean Corpuscular Volume 94, Mean Corpuscular Hemoglobin 32.6H, Mean Corpuscular Hemoglobin Concent 34.6, Red Cell Distribution Width 11.3L, Platelet Count 244, Mean Platelet Volume 7.3, Neutrophils (%) (Auto) 71.2, Lymphocytes (%) (Auto) 17.4L, Monocytes (%) (Auto) 6.4, Eosinophils (%) (Auto) 4.2H, Basophils (%) (Auto) 0.8, Sodium Level 139, Potassium Level 3.9, Chloride Level 105, Carbon Dioxide Level 27, Anion Gap 7, Blood Urea Nitrogen 10, Creatinine 0.6, Estimat Glomerular Filtration Rate , Glucose Level 101, Calcium Level 8.4L Height (Feet): 5 Height (Inches): 3.00 Weight (Pounds): 78 Objective Thin WW NCAT supple CTA RRR abd soft ND NT no edema Juana Alberts MD December 10, 2018 17:29
--- NOTE | 2018-12-10 18:00 | NUR ---
NURSE NOTES: no gastric residual noted and reached to a goal ordered. will cont to monitor.
--- NOTE | 2018-12-10 19:04 | NUR ---
HAND-OFF: Report given to
[2018-12-10 20:00] VITALS: BP 125/71
--- NOTE | 2018-12-10 20:10 | NUR ---
NURSE NOTES: Received patient awake,verbal,follows simple command,on bilateral soft wrist restraints,tolerating her g-tube feeding well.
[2018-12-10] MEDS: Miralax 17gm pkt GT SCH (20:58)
[2018-12-11 00:06] VITALS: BP 128/76
[2018-12-11] MEDS: D5 1/2NS w/KCl 20mEq 1,000 ML IV SCH ×2 (02:45→16:05)
[2018-12-11 04:00] VITALS: BP 122/66
--- NOTE | 2018-12-11 07:04 | NUR ---
HAND-OFF: Report given to Jennifer Medina LVN.
--- NOTE | 2018-12-11 07:45 | NUR ---
NURSE NOTES: Received patient in bed, A/A/Ox1, IV site patent and intact. G-tube in place and no gastric residual noted. HOB elevated for aspiration precaution. Patient on bilateral soft wrist restraints due to combativeness and removing devices. Bed in lowest position. bed alarm on. Call light within reach. Bed alarm on. Will continue to monitor.
[2018-12-11 07:57] VITALS: BP 122/65
[2018-12-11] MEDS: Lactulose 10gm/15ml UDC GT SCH ×2 (08:49→13:00)
[2018-12-11] MEDS: Docusate 100mg/10ml Liq GT SCH (08:49)
[2018-12-11] MEDS: Heparin 5000 units/ml inj SUBQ SCH (08:55)
--- NOTE | 2018-12-11 10:09 | General Progress Note ---
Assessment/Plan Assessment/Plan: N+V, coffee ground with DW GI. EGD - Esophagitis. CT scan no evidence of metastatic disease. s/p Rt. Mastectomy. GS noted. See orders. DW GI. No family or DPOA. DC to SNF. Subjective Allergies: Coded Allergies: PENICILLINS (Verified Allergy, Unknown, 02/17/18) SULFA (SULFONAMIDE ANTIBIOTICS) (Unverified Allergy, Unknown, 10/02/18) Uncoded Allergies: SULFA (Allergy, Unknown, 02/17/18) Subjective No c/o Objective Last 24 Hour Vital Signs Date Time Temp Pulse Resp B/P (MAP) Pulse Ox O2 Delivery O2 Flow Rate FiO2 12/11/18 08:34 Room Air 12/11/18 07:57 98.3 72 16 122/65 (84) 98 12/11/18 04:00 98.3 80 18 122/66 (84) 98 12/11/18 00:06 98.7 88 18 128/76 (93) 99 12/10/18 20:47 Room Air 12/10/18 20:00 98.0 89 18 125/71 (89) 97 12/10/18 16:00 98.5 86 21 120/69 (86) 95 12/10/18 12:00 98.5 95 24 128/79 (95) 98 Intake and Output 12/10/18 12/11/18 19:00 07:00 Intake Total 870 ml 1760 ml Balance 870 ml 1760 ml Free Water 255 ml 200 ml IV Total 75 ml 900 ml Tube Feeding 540 ml 660 ml # Voids 4 # Bowel Movements 2 Height (Feet): 5 Height (Inches): 3.00 Weight (Pounds): 78 Objective [place] CV RR Lungs CTA Abd SNT. BS + E NO CCE Kai Ramírez MD December 11, 2018 10:09
[2018-12-11] MEDS ORDERED: HEPARIN SO5000 UNIT2 SUBQ (10:13)
[2018-12-11] MEDS ORDERED: LACTULOSE10 GM/155 GT (10:13)
[2018-12-11] MEDS ORDERED: LANSOPRAZOLE30 MG GT (10:13)
--- NOTE | 2018-12-11 10:20 | General Progress Note ---
Assessment/Plan Assessment/Plan: Assessment (1) Diverticulosis ICD Codes: K57.90 - Diverticulosis of intestine, part unspecified, without perforation or abscess without bleeding SNOMED: 869646397 (2) Fecal impaction ICD Codes: K56.41 - Fecal impaction SNOMED: 06830099 (3) H/O malignant neoplasm of breast ICD Codes: Z85.3 - Personal history of malignant neoplasm of breast SNOMED: 783959595 (4) Pancreatic cyst ICD Codes: K86.2 - Cyst of pancreas SNOMED: 60132469 (5) G tube feedings ICD Codes: Z93.1 - Gastrostomy status SNOMED: 318421771, 831041009 (6) Vomiting ICD Codes: R11.10 - Vomiting, unspecified SNOMED: 894924795 (7) Coffee ground emesis ICD Codes: K92.0 - Hematemesis SNOMED: 23531795, 546957904 Assessment/Plan: ppi bowel regimen GTF monitor for recurrent bleeding fu tumor markers Subjective Allergies: Coded Allergies: PENICILLINS (Verified Allergy, Unknown, 02/17/18) SULFA (SULFONAMIDE ANTIBIOTICS) (Unverified Allergy, Unknown, 10/02/18) Uncoded Allergies: SULFA (Allergy, Unknown, 02/17/18) Subjective calm tolerating TF no complaints Objective Last 24 Hour Vital Signs Date Time Temp Pulse Resp B/P (MAP) Pulse Ox O2 Delivery O2 Flow Rate FiO2 12/11/18 08:34 Room Air 12/11/18 07:57 98.3 72 16 122/65 (84) 98 12/11/18 04:00 98.3 80 18 122/66 (84) 98 12/11/18 00:06 98.7 88 18 128/76 (93) 99 12/10/18 20:47 Room Air 12/10/18 20:00 98.0 89 18 125/71 (89) 97 12/10/18 16:00 98.5 86 21 120/69 (86) 95 12/10/18 12:00 98.5 95 24 128/79 (95) 98 Intake and Output 12/10/18 12/11/18 19:00 07:00 Intake Total 870 ml 1760 ml Balance 870 ml 1760 ml Free Water 255 ml 200 ml IV Total 75 ml 900 ml Tube Feeding 540 ml 660 ml # Voids 4 # Bowel Movements 2 Height (Feet): 5 Height (Inches): 3.00 Weight (Pounds): 78 Objective Thin WW NCAT supple CTA RRR abd soft ND NT no edema Juana Alberts MD December 11, 2018 10:20
--- NOTE | 2018-12-11 10:39 | NUR ---
CHARGE NURSE NOTES: Called [facility] to verify if bed is available for the patient and when patient can be transferred back. [facility] SERVER in the facility said that must verify info with medical technologist chemistry and promised to call back
[2018-12-11 12:00] VITALS: BP 111/63
--- NOTE | 2018-12-11 15:04 | NUR ---
NURSE NOTES: REPORT GIVEN TO JANESSA @ [facility]. PATIENT DOES NOT HAVE NEXT OF KIN IN THE CHART.
[2018-12-11 16:00] VITALS: BP 122/81
--- NOTE | 2018-12-11 16:35 | NUR ---
NURSE NOTES: discharged patient back to SNF. removed IV heplock. Gtube feeding tolerating well. d/c restraints. no personal belongings noted. in stable condition.
--- NOTE | 2018-12-13 10:08 | Discharge Summary ---
Discharge Summary Discharge Summary _ Discharge summary DATE OF ADMISSION: 12/05/2018 DATE OF DISCHARGE: 12/11/2018 DISCHARGED BY: Dr. Pollard REASON FOR ADMISSION: 78 years old female with past medical history of metastatic breast cancer for 3 years, without significant further decline, organic brain syndrome, schizophrenia, resident of jail facility, was brought due to coffee- ground emesis. Patient by herself was demented and unable to provide any information. Upon evaluation patient was tachycardic. Laboratory work-up revealed leukocytosis , stable hemoglobin and hematocrit. Stable electrolytes. BUN 30, creatinine 0.7. Glucose 130. Stable LFT. Troponin negative. Albumin 3.8. EKG revealed sinus rhythm, no acute ischemic changes ( heart rate came down after initial tachycardia with IV hydration ) Chest x-ray revealed no acute cardiopulmonary pathology. Patient started on the IV hydration and was admitted for further evaluation and management. CONSULTANTS: GI specialist dr. Alberts [facility] COURSE: Patient admitted to medical surgical floor. Patient started on the IV hydration. GI specialist closely followed. CT of the abdomen and pelvis was done for evaluation due to metastatic breast cancer. It revealed no evidence of metastatic disease. CT scan revealed gastrostomy tube in place, status post right mastectomy. Left breast tissue appeared somewhat nodular and possibility of mass was not excludable. 5 mm structure in the body of the pancreas may represent an IPMN. Colonic diverticulosis without evidence of acute diverticulitis. Mild fecal impaction. 9 mm well-circumscribed sclerotic focus in the L4 vertebral body representing bone island , bone metastasis felt less likely. Pneumobilia , possibly related to prior sphincterotomy . Stool for occult blood was negative. Cancer tumor markers revealed CEA within normal limits and CA-[id number] elevated - 45. Patient subsequently undergone upper endoscopy with biopsy , which revealed hiatal hernia with associated distal esophagitis, gastritis , status post biopsy and intact G-tube. GI specialist recommended to resume tube feeding with strict aspiration/reflux precautions. Patient started on PPI twice a day. Biopsy of antrum revealed mild chronic gastritis with reactive changes ,no H. pylori. Bowel regimen instituted. Hemoglobin and hematocrit were closely monitored with goal to keep hemoglobin above 7. Prior to discharge hemoglobin 12.2 , hematocrit 35.4. No further episode of emesis. GI specialist recommended to monitor for any recurrent bleeding. General surgeon seen patient Surgical scar well-healed on the right breast, no new masses noted. Left breast with nodularity , but no discrete mass palpated. Surgeon recommended outpatient mammogram , if desired. Skin assessment was done of all bony prominences. No evidence of skin breakdown. Surgeon recommended skin measures to prevent skin breakdown. Protein supplements implemented in plan of care. Patient tolerated GT feeding, no further evidence of hematemesis, stable hemoglobin and hematocrit . Patient clinically stabilized and was ready for [facility] for [facility] of care. Patient had no family or DPOA. FINAL DIAGNOSES: Coffee-ground emesis/hematemesis History of metastatic breast cancer x3 Status post EGD with biopsy Hiatal hernia with associated distal esophagitis Gastritis status post biopsy Dysphagia, G-tube feeding Diverticulosis Fecal impaction Pancreatic cyst Organic brain syndrome Severe malnutrition DISCHARGE MEDICATIONS: See Medication Reconciliation list. DISCHARGE INSTRUCTIONS: [facility] to [facility] jail facility. Follow up with medical doctor at the facility. I have been assigned to dictate discharge summary for this account. I was not involved in the patient's management. Loulou Agustin NP December 13, 2018 10:08
== END 2018-12-11 16:40 | DRG 388 ==
LOC: EDBD 20:28 → EMR 20:39 → 4E 22:19 → EDBEDREQ 23:53 → 4E 12-08 10:17
PROC: 0DB78ZX Excision of Stomach, Pylorus, Via Natural or Artificial Opening Endoscopic, Diagnostic (ICD-10-PCS; principal; 2018-12-09 14:36)
DX: K56.41 Fecal impaction (principal); E43 Unspecified severe protein-calorie malnutrition; K92.0 Hematemesis; Z68.1 Body mass index [BMI] 19.9 or less, adult; Z43.1 Encounter for attention to gastrostomy; K86.2 Cyst of pancreas; K20.9 Esophagitis, unspecified; K44.9 Diaphragmatic hernia without obstruction or gangrene; K29.70 Gastritis, unspecified, without bleeding; F09 Unspecified mental disorder due to known physiological condition; F20.9 Schizophrenia, unspecified; Z85.3 Personal history of malignant neoplasm of breast; R13.10 Dysphagia, unspecified; K57.90 Diverticulosis of intestine, part unspecified, without perforation or abscess without bleeding; F03.90 Unspecified dementia, unspecified severity, without behavioral disturbance, psychotic disturbance, mood disturbance, and anxiety; Z88.0 Allergy status to penicillin; Z88.2 Allergy status to sulfonamides
CPT/HCPCS: 36415; 71045; 74177; 80048; 80053; 82150; 82270; 82378; 82550; 82553; 82607; 82746; 83036; 83690; 84484; 85025; 87081; 93005; 94003; 94150; 96374; 99285; J2405

== ENCOUNTER 2019-01-20 11:39 | Inpatient (IN) | payer MEDICARE ==
[~2019-01-20] VITALS: Ht 157.5 cm; Wt 59.0 kg
[~2019-01-20 11:39] MED LIST changes: +HEPARIN SO5000 UNIT2 SUBQ; +LACTULOSE10 GM/155 GT; +SENNA8.6 M2 GT; -SENNA8.6 M2 PO
[2019-01-20] MEDS ORDERED: VITAMIN C500 M1 GT (11:51)
--- NOTE | 2019-01-20 11:59 | Emergency Room Report ---
History of Present Illness General Chief Complaint: Gastrointestinal Bleed Source: Patient, Medical Record Present Illness HPI This patient presents from a [place] [facility] facility. There was concern of coffee-ground emesis and GI bleed. The patient was noted to have an episode of emesis this morning. The patient is nonverbal at baseline and is unable to give a history. History is obtained from EMS and the medical record. Allergies: Coded Allergies: PENICILLINS (Verified Allergy, Unknown, 02/17/18) SULFA (SULFONAMIDE ANTIBIOTICS) (Unverified Allergy, Unknown, 10/02/18) Uncoded Allergies: SULFA (Allergy, Unknown, 02/17/18) Patient History Past Medical History: see triage record, HTN, dementia, psych hx - Schizophrenia, RA, other - Breast ca Past Surgical History: other - PEG Social History: Denies: smoking, alcohol use, drug use Reviewed Nursing Documentation: PMH: Agreed; PSxH: Agreed Nursing Documentation-PMH Hx Hypertension: Yes Hx Gastrointestinal Problems: Yes - GERD, GTube Hx Neurological Problems: Yes - schizo, bipolar Review of Systems All Other Systems: negative except mentioned in HPI Physical Exam Vital Signs Date Time Temp Pulse Resp B/P (MAP) Pulse Ox O2 Delivery O2 Flow Rate FiO2 01/20/19 11:46 97.0 110 20 125/75 (92) 94 Room Air Sp02 EP Interpretation: reviewed, normal General Appearance: no apparent distress, GCS 15, non-toxic Head: normocephalic, atraumatic Eyes: bilateral eye normal inspection ENT: no angioedema Neck: normal inspection Respiratory: chest non-tender, lungs clear, normal breath sounds, no respiratory distress, no retraction, no accessory muscle use, speaking full sentences Cardiovascular #1: regular rate, rhythm, no edema, systolic murmur Gastrointestinal: normal bowel sounds, non tender, soft, non-distended, no guarding, no rebound, other - PEG Rectal: deferred Musculoskeletal: back normal, other - cachectic, contractures (baseline) Neurologic: alert, other - At baseline, grossly normal Psychiatric: judgement/insight normal, memory normal, mood/affect normal, no suicidal/homicidal ideation Skin: warm/dry, well hydrated, other - See RN skin exam Medical Decision Making Diagnostic Impression: Primary Impression: Coffee ground emesis Additional Impression: Hypernatremia ER Course This patient has had multiple episodes of coffee-ground emesis. The patient is not anemic and did not require blood transfusion at this time. Overall, the patient remained stable here in the emergency department. The anemia of an upper GI bleed can lag behind the onset of symptoms, therefore, this patient will be admitted for further evaluation for possible upper GI bleed. Laboratory Tests Test 01/20/19 12:00 01/20/19 13:14 White Blood Count 10.0 K/UL (4.8-10.8) Red Blood Count 5.32 M/UL (4.20-5.40) Hemoglobin 16.6 G/DL (12.0-16.0) H Hematocrit 49.7 % (37.0-47.0) H Mean Corpuscular Volume 93 FL (80-99) Mean Corpuscular Hemoglobin 31.1 PG (27.0-31.0) H Mean Corpuscular Hemoglobin Concent 33.4 G/DL (32.0-36.0) Red Cell Distribution Width 11.8 % (11.6-14.8) Platelet Count 347 K/UL (150-450) Mean Platelet Volume 7.3 FL (6.5-10.1) Neutrophils (%) (Auto) 75.6 % (45.0-75.0) H Lymphocytes (%) (Auto) 16.7 % (20.0-45.0) L Monocytes (%) (Auto) 6.7 % (1.0-10.0) Eosinophils (%) (Auto) 0.4 % (0.0-3.0) Basophils (%) (Auto) 0.6 % (0.0-2.0) Prothrombin Time 9.6 SEC (9.30-11.50) Prothrombin Time INR 0.9 (0.9-1.1) PTT 25 SEC (23-33) Sodium Level 147 MMOL/L (136-145) H Potassium Level 3.5 MMOL/L (3.5-5.1) Chloride Level 103 MMOL/L (98-107) Carbon Dioxide Level 36 MMOL/L (21-32) H Anion Gap 8 mmol/L (5-15) Blood Urea Nitrogen 20 mg/dL (7-18) H Creatinine 0.7 MG/DL (0.55-1.30) Estimate Glomerular Filtration Rate mL/min (>60) Glucose Level 144 MG/DL (74-106) H Calcium Level 10.0 MG/DL (8.5-10.1) Total Bilirubin 0.3 MG/DL (0.2-1.0) Aspartate Amino Transferase (AST) 16 U/L (15-37) Alanine Aminotransferase (ALT) 22 U/L (12-78) Alkaline Phosphatase 107 U/L (46-116) Total Protein 7.9 G/DL (6.4-8.2) Albumin 3.8 G/DL (3.4-5.0) Globulin 4.1 g/dL Albumin/Globulin Ratio 0.9 (1.0-2.7) L Urine Color Pale yellow Urine Appearance Clear Urine pH 9 (4.5-8.0) Urine Specific [place] 1.010 (1.005-1.035) Urine Protein 2+ (NEGATIVE) H Urine Glucose (UA) Negative (NEGATIVE) Urine Ketones Negative (NEGATIVE) Urine Blood Negative (NEGATIVE) Urine Nitrite Negative (NEGATIVE) Urine Bilirubin Negative (NEGATIVE) Urine Urobilinogen 1 MG/DL (0.0-1.0) H Urine Leukocyte Esterase 1+ (NEGATIVE) H Urine RBC 0-2 /HPF (0 - 2) Urine WBC 0-2 /HPF (0 - 2) Urine Squamous Epithelial Cells Occasional /LPF Urine Bacteria Occasional /HPF (NONE) EKG Diagnostic Results Rate: normal Rhythm: NSR ST Segments: no acute changes Rhythm Strip Diag. Results EP Interpretation: yes Rate: 90's Rhythm: NSR, no PVC's, no ectopy Last Vital Signs Date Time Temp Pulse Resp B/P (MAP) Pulse Ox O2 Delivery O2 Flow Rate FiO2 01/20/19 11:46 97.0 110 20 125/75 (92) 94 Room Air Disposition: ADMITTED INPATIENT Condition: Stable Ludy Al DO Jan 20, 2019 11:59
[2019-01-20 12:40] VITALS: BP 120/80
--- NOTE | 2019-01-20 12:40 | NUR ---
ED Nurse Note: Patient brought in to ER by ambulance from [facility] due to coffee ground vomited x2 at facility this morning. pt responds to name but non-verbal. per EMS pt answered to them verbally twice but not since she arrived at ER. skin pale and dry but clean and intact. BLE contracted. pt bedbound and opening eyes spontaneously. pt is in gown and on desk monitor.
[2019-01-20 12:41] LABS: BASOPHILS % (AUTO) 0.6 % (0.0-2.0); EOSINOPHILS % (AUTO) 0.4 % (0.0-3.0); HEMATOCRIT 49.7 % (37.0-47.0); HEMOGLOBIN 16.6 G/DL (12.0-16.0); LYMPHOCYTES % (AUTO) 16.7 % (20.0-45.0); MEAN CORPUSCULAR VOLUME 93 FL (80-99); MONOCYTES % (AUTO) 6.7 % (1.0-10.0); NEUTROPHILS % (AUTO) 75.6 % (45.0-75.0); PLATELET COUNT 347 K/UL (150-450); RED BLOOD COUNT 5.32 M/UL (4.20-5.40); RED CELL DISTRIBUTION WIDTH 11.8 % (11.6-14.8)
[2019-01-20 12:50] LABS: INR 0.9 (0.9-1.1)
[2019-01-20 12:51] LABS: ANION GAP 8 mmol/L (5-15); BLOOD UREA NITROGEN 20 mg/dL (7-18); CARBON DIOXIDE 36 MMOL/L (21-32); CHLORIDE 103 MMOL/L (98-107); CREATININE 0.7 MG/DL (0.55-1.30); POTASSIUM 3.5 MMOL/L (3.5-5.1); SODIUM 147 MMOL/L (136-145)
[2019-01-20 12:56] LABS: ALANINE AMINOTRANSFERASE 22 U/L (12-78); ALBUMIN 3.8 G/DL (3.4-5.0); ALBUMIN/GLOBULIN RATIO 0.9 (1.0-2.7); ALKALINE PHOSPHATASE 107 U/L (46-116); ASPARTATE AMINO TRANSFERASE 16 U/L (15-37); BILIRUBIN,TOTAL 0.3 MG/DL (0.2-1.0)
[2019-01-20 13:44] LABS: APPEARANCE,URINE CLEAR; BILIRUBIN, URINE NEGATIVE (NEGATIVE); COLOR,URINE PALE YELLOW; GLUCOSE, URINE (UA) NEGATIVE (NEGATIVE); KETONES,URINE NEGATIVE (NEGATIVE); LEUKOCYTE ESTERASE ,URINE 1+ (NEGATIVE); NITRITE,URINE NEGATIVE (NEGATIVE); PH,URINE 9 (4.5-8.0); PROTEIN,URINE 2+ (NEGATIVE); UROBILINOGEN,URINE 1 MG/DL (0.0-1.0)
--- NOTE | 2019-01-20 14:10 | NUR ---
ED Nurse Note: blood bank called for the blood ready. per ERMD, pt does not need blood transfusion anymore. blood bank informed.
[2019-01-20 14:45] VITALS: BP 124/74
--- NOTE | 2019-01-20 15:24 | NUR ---
ED Nurse Note: report given to JUAN MIGUEL Connelly.
--- NOTE | 2019-01-20 15:26 | NUR ---
ED Nurse Note: pt left department with 1 RN and 1 evs tech in stable condition.
[2019-01-20 15:35] VITALS: BP 115/71
--- NOTE | 2019-01-20 15:35 | NUR ---
NURSE NOTES: Received report from JUAN MIGUEL Aden. Received patient from ER via [facility]. Patient is awake,verbally responsive. On room air, no acute respiratory distress noted at this time. IV on left FA 20g intact and patent. GT intact and patent. floating operator shows sinus rhythm. No open wounds noted. Received admitting orders from Dr Ramírez, noted and carried out. Patient denies pain at this time. Bed locked, alarmed and in lowest position, side rails up x3, and call light left within reach. Will continue to monitor patient.
--- NOTE | 2019-01-20 15:54 | NUR ---
CASE MANAGEMENT: INITIAL REVIEW 78 YO F DAVID FROM [facility] CONV CC: GI BLEED PMHx: HTN. DEMENTIA. SCHIZO. PEG. BREAST CA. GERD. SI:UPPER GI BLEED T 97 HR 119 RR 20 B/P 125/75 SATS 94% ON RA NA 147 CO2 36 BUN 20 GLU 144 IS: PEPCID IV X1 NS BOLUS X3 PATIENT ADMITTED TO TELE 01/20/2019 @ 1440 DCP: PATIENT TO BE DISCHARGED TO SNF ONCE MEDICALLY CLEARED. PLAN OF CARE: NPO GI CONSULT Addendum: 01/20/19 at 1607 by Sravanthi Luu INTERQUAL MET
--- NOTE | 2019-01-20 17:00 | History and Physical Report ---
DATE OF ADMISSION: 01/20/2019 CHIEF COMPLAINT: Coffee-ground emesis. HISTORY OF PRESENT ILLNESS: This is a 78-year-old female who has been my patient for many years. For the last several years, the patient has been a resident of [facility]. About 5 years ago, there was evidence of metastatic breast cancer, which apparently receded without therapy completely, which is considered to be miracle for its own. Previously, the patient has had evidence of adenocarcinoma. The patient was put on hospice and survived the hospice. She was admitted the about 2 months ago with the same episode of coffee-grounds emesis, workup done by Dr. John was essentially benign. The patient was also seen by General surgery for quick workup regarding her upper GI bleed and also asking specific question about possible existence of cancer for which there was no evidence of either breast cancer or any other type of known cancer. The patient was readmitted with coffee-grounds emesis. 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 3. Psychosis. SENIOR LIVING MEDICATIONS: Tylenol p.r.n., ascorbic acid, multivitamin, sodium docusate, subcutaneous heparin, lactulose, lansoprazole, milk of magnesia, omeprazole, Senna, zinc sulfate. ALLERGIES: Sulfonamides, penicillins. SOCIAL HISTORY: Unable to obtain secondary to mental status. FAMILY HISTORY: Unable to obtain secondary to mental status. REVIEW OF SYSTEMS: Unable to obtain secondary to mental status. PHYSICAL EXAMINATION: GENERAL: This is an elderly cachectic female who is in no acute distress. VITAL SIGNS: Blood pressure 124/74, pulse 91 regular, respirations 17, and temperature 97.7 oral. HEENT: Head is normocephalic and atraumatic. Pupils are equal, round, and reactive to light and accommodation consensually. NECK: Supple. Trachea midline. There was no lymphadenopathy or thyromegaly. LUNGS: Clear to auscultation and percussion. HEART: Regular rate and rhythm without rubs, murmurs, or gallops. ABDOMEN: Scaphoid, soft, nontender. Bowel sounds were active. EXTREMITIES: Notable for advanced muscle wasting. NEUROLOGIC: She is alert. She replies very briefly. LABORATORY AND ANCILLARY DATA: CBC within normal limits. Serum chemistry, albumin is notably 3.8 which is normal, glucose 144, otherwise CMP within normal limits. Urinalysis essentially within normal limits. ASSESSMENT: 1. Coffee-grounds emesis, etiology unclear. 2. Organic brain syndrome. 3. Advanced cachexia. 4. Psychosis. PLAN: 1. Keep NPO. 2. IV fluid rehydration . 3. GI consult. Kai Ramírez M.D. DR: Martha JOB#: [id number] CC:
[2019-01-20] MEDS: D5 1/2NS w/KCl 20mEq 1,000 ML IV SCH (17:37)
--- NOTE | 2019-01-20 19:01 | NUR ---
HAND-OFF: Report given to JUAN MIGUEL Torrez. Patient in stable condition.
--- NOTE | 2019-01-20 19:05 | NUR ---
NURSE NOTES: Received report from Lacey RN, pt in bed awake- opens eyes to name- able to make needs known, no signs or symptoms of acute cardiac or respiratory distress noted, bed in lowest position and call light within easy reach, bed alarm on, side rails up x's3 and safety brakes engaged, pt appears to be sating well on room air- no distress noted- 97%, pt. appears to be clean and dry, left forearm 20G IV intact and patent- running D51/2 NS +20KCL, safety measures continued, will continue with plan of care.
[2019-01-20 20:00] VITALS: BP 113/70
[2019-01-21] VITALS: BP 119/70
[2019-01-21] MEDS: D5 1/2NS w/KCl 20mEq 1,000 ML IV SCH ×3 (03:52→23:00)
[2019-01-21 04:00] VITALS: BP 115/75
--- NOTE | 2019-01-21 07:03 | NUR ---
NURSE NOTES: Received report from JUAN MIGUEL Torrez. Pt is laying in bed asleep. No distress noted at this time. Bed is in lowest position, side rails up X4, and call light is within reach. Will continue to monitor.
--- NOTE | 2019-01-21 07:03 | NUR ---
HAND-OFF: Report given to Rasheed BULLARD, pt. remains stable and no signs of distress noted.
--- NOTE | 2019-01-21 09:30 | NUR ---
NURSE NOTES: Attempted to disconnect pts Iv in order to flush line so that i may give her 9am IV med. Pt was combative and pulled her hand away several times. I explained that we needed to give her medication that would help with her bleed. She kept pulling away. resumed fluids. Did not administer pepcid. Pt went back to sleep. Will continue to monitor.
--- NOTE | 2019-01-21 11:18 | NUR ---
NURSE NOTES: Pts ekg leads were off. Tried to fix them and patient scratched me and told me to get off of her. Explained the need to put on the leads. Pt allowed me to place them on her. Will continue to monitor.
--- NOTE | 2019-01-21 11:57 | General Progress Note ---
Assessment/Plan Problem List: (1) Alzheimer disease ICD Codes: G30.9 - Alzheimer's disease, unspecified; F02.80 - Dementia in other diseases classified elsewhere without behavioral disturbance SNOMED: 60997659 (2) Dehydration ICD Codes: E86.0 - Dehydration SNOMED: 03690631 (3) Coffee ground emesis ICD Codes: K92.0 - Hematemesis SNOMED: 08565316, 882520061 (4) UGI bleed ICD Codes: K92.2 - Gastrointestinal hemorrhage, unspecified SNOMED: 50114799 Assessment/Plan: hydrate, try resume feeding, f/u lab Subjective ROS Limited/Unobtainable: Yes Allergies: Coded Allergies: PENICILLINS (Verified Allergy, Unknown, 02/17/18) SULFA (SULFONAMIDE ANTIBIOTICS) (Unverified Allergy, Unknown, 10/02/18) Uncoded Allergies: SULFA (Allergy, Unknown, 02/17/18) Objective Last 24 Hour Vital Signs Date Time Temp Pulse Resp B/P (MAP) Pulse Ox O2 Delivery O2 Flow Rate FiO2 01/21/19 09:00 Room Air 01/21/19 04:00 98.0 75 18 115/75 (88) 98 01/21/19 04:00 64 01/21/19 00:00 72 01/21/19 00:00 96.6 74 18 119/70 (86) 98 01/20/19 21:00 Room Air 01/20/19 20:00 92 01/20/19 20:00 97.4 92 18 113/70 (84) 98 01/20/19 18:07 91 01/20/19 15:39 Room Air 01/20/19 15:35 97.8 96 18 115/71 (86) 98 01/20/19 15:28 98.0 88 17 120/75 98 Room Air 01/20/19 14:45 97.7 91 17 124/74 98 Room Air 01/20/19 12:40 97.0 110 20 120/80 94 Room Air 01/20/19 12:40 110 20 Room Air Intake and Output 01/20/19 01/21/19 19:00 07:00 Intake Total 1190 ml 760 ml Balance 1190 ml 760 ml Intake IV Total 1190 ml 760 ml # Voids 1 Laboratory Tests 01/20/19 12:00: White Blood Count 10.0, Red Blood Count 5.32, Hemoglobin 16.6H, Hematocrit 49.7H , Mean Corpuscular Volume 93, Mean Corpuscular Hemoglobin 31.1H, Mean Corpuscular Hemoglobin Concent 33.4, Red Cell Distribution Width 11.8, Platelet Count 347, Mean Platelet Volume 7.3, Neutrophils (%) (Auto) 75.6H, Lymphocytes ( %) (Auto) 16.7L, Monocytes (%) (Auto) 6.7, Eosinophils (%) (Auto) 0.4, Basophils (%) (Auto) 0.6, Prothrombin Time 9.6, Prothromb Time International Ratio 0.9, Activated Partial Thromboplast Time 25, Sodium Level 147H, Potassium Level 3.5, Chloride Level 103, Carbon Dioxide Level 36H, Anion Gap 8, Blood Urea Nitrogen 20H, Creatinine 0.7, Estimat Glomerular Filtration Rate , Glucose Level 144H, Calcium Level 10.0, Total Bilirubin 0.3, Aspartate Amino Transf (AST /SGOT) 16, Alanine Aminotransferase (ALT/SGPT) 22, Alkaline Phosphatase 107, Total Protein 7.9, Albumin 3.8, Globulin 4.1, Albumin/Globulin Ratio 0.9L 01/20/19 13:14: Urine Color Pale yellow, Urine Appearance Clear, Urine pH 9, Urine Specific [place] 1.010, Urine Protein 2+H, Urine Glucose (UA) Negative, Urine Ketones Negative, Urine Blood Negative, Urine Nitrite Negative, Urine Bilirubin Negative , Urine Urobilinogen 1H, Urine Leukocyte Esterase 1+H, Urine RBC 0-2, Urine WBC 0-2, Urine Squamous Epithelial Cells Occasional, Urine Bacteria Occasional Height (Feet): 5 Height (Inches): 2.00 Weight (Pounds): 130 General Appearance: no apparent distress, confused EENT: normal ENT inspection Neck: normal alignment, supple Cardiovascular: regular rhythm Respiratory/Chest: lungs clear Abdomen: non tender Neurologic: other - position Mat Nelson MD Jan 21, 2019 11:57
[2019-01-21 12:16] VITALS: BP 121/72
--- NOTE | 2019-01-21 16:45 | NUR ---
HAND-OFF: Report given to Ralf Treviño. Plan of care endorsed
--- NOTE | 2019-01-21 16:46 | NUR ---
NURSE NOTES: Received report from JUAN MIGUEL Walter. The patient is resting on the bed without acute distress or shortness of breath. Per JUAN MIGUEL Walter, the patient will be on NPO and will resume tube feeding from tomorrow. The patient's bed in the lowest position, call light in reach, and fall and aspiration precaution reinforced. Will continue plan of care.
--- NOTE | 2019-01-21 19:25 | NUR ---
HAND-OFF: Report given to JUAN MIGUEL Gill. The patient denies of acute distress or shortness of breath. The patient's bed in the lowest position, call light in reach, and fall and aspiration precaution reinforced. Endorsed plan of care.
--- NOTE | 2019-01-21 19:26 | NUR ---
NURSE NOTES: Report received from Enrique Ruffin RN. Pt is resting in bed in stable condition. Pt is AOx1, with noted confusion. Pt is on room air and breathing is even and unlabored. No acute distress noted. IV site is L FA #20g and is asymptomatic, patent, and intact and running IV fluids at rx rate. Bed is placed in lowest position with brake engaged, side rails up x3, and bed alarm on. Call light and side table placed within reach. Pt remains NPO per MD John. G-tube site and dressing are dry and intact. Will continue to monitor patient.
--- NOTE | 2019-01-21 19:37 | Cardiology Report ---
APPROVED REPORT EKG Measurement Heart [id number] OR [id number] Normal sinus rhythm Left axis deviation Low voltage QRS Septal infarct, age undetermined Abnormal ECG
[2019-01-21 20:00] VITALS: BP 118/66
--- NOTE | 2019-01-21 20:45 | Consultation ---
DATE OF CONSULTATION: 01/21/2019 CONSULTING PHYSICIAN: Hugo John M.D. CHIEF COMPLAINT: Coffee-ground emesis. HISTORY OF PRESENT ILLNESS: Most of history per chart. This is a 78-year-old female, know to me from prior admission. I did endoscopy last admission, which showed evidence of esophagitis, 4 cm hiatal hernia, evidence of G-tube. The patient did not have any significant bleeding and now readmitted again with coffee-ground emesis. PAST MEDICAL HISTORY: 1. Esophagitis. 2. 4 cm hiatal hernia. 3. Question of breast cancer, which resolved apparently on its own. 4. Dysphagia with G-tube. 5. Dementia. 6. Psychiatric disorder, schizophrenia. ALLERGIES: To penicillin and sulfa. MEDICATIONS: Please see medication reconciliation list. PAST SURGICAL HISTORY: None. SOCIAL HISTORY: The patient currently lives in a senior care. No recent history of tobacco, alcohol, or IV drug abuse. PHYSICAL EXAMINATION: VITAL SIGNS: Temperature is 98, pulse 75, respirations 18, and blood pressure is 115/75. HEENT: Normocephalic and atraumatic. Sclerae anicteric. NECK: Supple. No evidence of lymphadenopathy. CARDIOVASCULAR: Regular rate and rhythm. Plus S1 and S2. LUNGS: Clear to auscultation bilaterally. ABDOMEN: Positive bowel sounds. Soft, nontender. G-tube in place. No rebound. No guarding. No peritoneal sign. EXTREMITIES: No cyanosis. No clubbing. No edema. LABORATORY DATA: White count is 10, hemoglobin 16, hematocrit 49, and platelet count is 347. ASSESSMENT: This is a 78-year-old female with coffee-ground emesis with hemoglobin of 16 with past medical history of esophagitis. PLAN: Start the patient on Prevacid per G-tube twice a day. started G-tube feeding. Send the stool for OB. Repeat CBC for tomorrow. Hold off repeat endoscopy at this time. I want to thank, Dr. Ramírez, for this kind referral. Hugo John M.D. DR: SAMEER JOB#: [id number] CC: Kai Ramírez M.D.; Fax#: [phone]
--- NOTE | 2019-01-21 21:00 | NUR ---
NURSE NOTES: GT site auscultated, patent, and flushed. 140cc residual - water like fluid. TF not started due to residual.
--- NOTE | 2019-01-21 23:04 | NUR ---
NURSE NOTES: Pt had x1 emesis, watery/brown. MD Nelson notified. No new orders at this time. Strict aspiration precautions enforced. HOB > 30 degrees. Will continue to monitor patient.
[2019-01-22] VITALS: BP 110/58
[2019-01-22 04:00] VITALS: BP 114/61
--- NOTE | 2019-01-22 06:37 | NUR ---
NURSE NOTES: No residual noted from GT. Flushed with 100cc per orders. No further episodes of emesis. Will endorsed to AM shift re: starting tube feeding.
[2019-01-22 07:18] LABS: BASOPHILS % (AUTO) 0.5 % (0.0-2.0); EOSINOPHILS % (AUTO) 0.3 % (0.0-3.0); HEMATOCRIT 40.5 % (37.0-47.0); HEMOGLOBIN 14.1 G/DL (12.0-16.0); LYMPHOCYTES % (AUTO) 12.9 % (20.0-45.0); MEAN CORPUSCULAR VOLUME 91 FL (80-99); MONOCYTES % (AUTO) 5.5 % (1.0-10.0); NEUTROPHILS % (AUTO) 80.8 % (45.0-75.0); PLATELET COUNT 299 K/UL (150-450); RED BLOOD COUNT 4.43 M/UL (4.20-5.40); RED CELL DISTRIBUTION WIDTH 11.5 % (11.6-14.8); WHITE BLOOD COUNT 10.3 K/UL (4.8-10.8)
--- NOTE | 2019-01-22 07:22 | NUR ---
HAND-OFF: Report given to Shahid Ruffin RN. Pt is resting in bed in stable condition. No acute distress noted. Endorsed plan of care.
--- NOTE | 2019-01-22 07:22 | NUR ---
NURSE NOTES: Report received from bruce BULLARD. Pt is resting awake and confused in bed in stable condition. On room air and No signs of distress noted. IV site is L FA #20g and is asymptomatic, patent and running IV D5 1/2NS with [id number] at 100cc/hr. Bed is placed in lowest position with brake engaged, side rails up x3, and zone 2 bed alarm on. Call light and side table placed within reach. Pt remains NPO per MD John. G-tube site and dressing are dry and intact. Will continue to monitor patient.
[2019-01-22 07:37] LABS: ANION GAP 10 mmol/L (5-15); BLOOD UREA NITROGEN 13 mg/dL (7-18); CALCIUM 9.2 MG/DL (8.5-10.1); CARBON DIOXIDE 27 MMOL/L (21-32); CHLORIDE 105 MMOL/L (98-107); CREATININE 0.6 MG/DL (0.55-1.30); POTASSIUM 3.8 MMOL/L (3.5-5.1); SODIUM 142 MMOL/L (136-145)
[2019-01-22 08:00] VITALS: BP 117/74
--- NOTE | 2019-01-22 08:26 | General Progress Note ---
Assessment/Plan Assessment/Plan: 1. Esophagitis. 2. 4 cm hiatal hernia. 3. Question of breast cancer, which resolved apparently on its own. 4. Dysphagia with G-tube. 5. Dementia. 6. Psychiatric disorder, schizophrenia. GTF ppi reflux measures given stable H&H and recent EGD will hold repeat EGD at this time Subjective ROS Limited/Unobtainable: No Allergies: Coded Allergies: PENICILLINS (Verified Allergy, Unknown, 02/17/18) SULFA (SULFONAMIDE ANTIBIOTICS) (Unverified Allergy, Unknown, 10/02/18) Uncoded Allergies: SULFA (Allergy, Unknown, 02/17/18) Objective Last 24 Hour Vital Signs Date Time Temp Pulse Resp B/P (MAP) Pulse Ox O2 Delivery O2 Flow Rate FiO2 01/22/19 04:00 73 01/22/19 04:00 97.7 76 18 114/61 (78) 97 01/22/19 00:00 98.0 67 16 110/58 (75) 100 01/22/19 00:00 74 01/21/19 21:00 Room Air 01/21/19 20:00 67 01/21/19 20:00 96.9 72 18 118/66 (83) 99 01/21/19 16:00 78 01/21/19 12:16 97.9 71 19 121/72 (88) 97 01/21/19 12:00 58 01/21/19 09:00 Room Air Intake and Output 01/21/19 01/22/19 19:00 07:00 Intake Total 100 ml 300 ml Balance 100 ml 300 ml Intake IV Total 100 ml 300 ml # Voids 2 Laboratory Tests 01/22/19 05:20: White Blood Count 10.3, Red Blood Count 4.43, Hemoglobin 14.1, Hematocrit 40.5, Mean Corpuscular Volume 91, Mean Corpuscular Hemoglobin 31.8H, Mean Corpuscular Hemoglobin Concent 34.9, Red Cell Distribution Width 11.5L, Platelet Count 299, Mean Platelet Volume 7.2, Neutrophils (%) (Auto) 80.8H, Lymphocytes (%) (Auto) 12.9L, Monocytes (%) (Auto) 5.5, Eosinophils (%) (Auto) 0.3, Basophils (%) (Auto ) 0.5, Sodium Level 142, Potassium Level 3.8, Chloride Level 105, Carbon Dioxide Level 27, Anion Gap 10, Blood Urea Nitrogen 13, Creatinine 0.6, Estimat Glomerular Filtration Rate , Glucose Level 128H, Calcium Level 9.2 Height (Feet): 5 Height (Inches): 2.00 Weight (Pounds): 130 General Appearance: lethargic EENT: normal ENT inspection Neck: supple Cardiovascular: normal rate Respiratory/Chest: decreased breath sounds Abdomen: normal bowel sounds, non tender, soft Extremities: non-tender Hugo John MD Jan 22, 2019 08:26
--- NOTE | 2019-01-22 08:54 | General Progress Note ---
Assessment/Plan Problem List: (1) Alzheimer disease ICD Codes: G30.9 - Alzheimer's disease, unspecified; F02.80 - Dementia in other diseases classified elsewhere without behavioral disturbance SNOMED: 48976474 (2) Dehydration ICD Codes: E86.0 - Dehydration SNOMED: 59817546 (3) Coffee ground emesis ICD Codes: K92.0 - Hematemesis SNOMED: 32264213, 732817204 (4) UGI bleed ICD Codes: K92.2 - Gastrointestinal hemorrhage, unspecified SNOMED: 33379802 Assessment/Plan: hydrate, try resume feeding, f/u lab, emesis last pm, not safe to dc to ecf, GI consult noted Subjective ROS Limited/Unobtainable: Yes Allergies: Coded Allergies: PENICILLINS (Verified Allergy, Unknown, 02/17/18) SULFA (SULFONAMIDE ANTIBIOTICS) (Unverified Allergy, Unknown, 10/02/18) Uncoded Allergies: SULFA (Allergy, Unknown, 02/17/18) Objective Last 24 Hour Vital Signs Date Time Temp Pulse Resp B/P (MAP) Pulse Ox O2 Delivery O2 Flow Rate FiO2 01/22/19 04:00 73 01/22/19 04:00 97.7 76 18 114/61 (78) 97 01/22/19 00:00 98.0 67 16 110/58 (75) 100 01/22/19 00:00 74 01/21/19 21:00 Room Air 01/21/19 20:00 67 01/21/19 20:00 96.9 72 18 118/66 (83) 99 01/21/19 16:00 78 01/21/19 12:16 97.9 71 19 121/72 (88) 97 01/21/19 12:00 58 01/21/19 09:00 Room Air Intake and Output 01/21/19 01/22/19 19:00 07:00 Intake Total 100 ml 300 ml Balance 100 ml 300 ml Intake IV Total 100 ml 300 ml # Voids 2 Laboratory Tests 01/22/19 05:20: White Blood Count 10.3, Red Blood Count 4.43, Hemoglobin 14.1, Hematocrit 40.5, Mean Corpuscular Volume 91, Mean Corpuscular Hemoglobin 31.8H, Mean Corpuscular Hemoglobin Concent 34.9, Red Cell Distribution Width 11.5L, Platelet Count 299, Mean Platelet Volume 7.2, Neutrophils (%) (Auto) 80.8H, Lymphocytes (%) (Auto) 12.9L, Monocytes (%) (Auto) 5.5, Eosinophils (%) (Auto) 0.3, Basophils (%) (Auto ) 0.5, Sodium Level 142, Potassium Level 3.8, Chloride Level 105, Carbon Dioxide Level 27, Anion Gap 10, Blood Urea Nitrogen 13, Creatinine 0.6, Estimat Glomerular Filtration Rate , Glucose Level 128H, Calcium Level 9.2 Height (Feet): 5 Height (Inches): 2.00 Weight (Pounds): 130 General Appearance: confused EENT: normal ENT inspection Neck: non-tender Cardiovascular: normal rate, regular rhythm Respiratory/Chest: lungs clear Abdomen: soft, no organomegaly Edema: no edema noted Arm (L), no edema noted Arm (R), no edema noted Leg (L), no edema noted Leg (R), no edema noted Pedal (L), no edema noted Pedal (R), no edema noted Generalized Neurologic: disoriented, other - not speaking Mat Nelson MD Jan 22, 2019 08:54
[2019-01-22] MEDS: D5 1/2NS w/KCl 20mEq 1,000 ML IV SCH ×3 (09:43→20:55)
--- NOTE | 2019-01-22 11:56 | NUR ---
RD ASSESSMENT & RECOMMENDATIONS SEE CARE ACTIVITY FOR COMPLETE ASSESSMENT DAILY ESTIMATED NEEDS: Needs based on Severely underweight, metastatic CA/ 37kg 35-40 kcals/kg 4219-9298 total kcals 1-2 g protein/kg 37-74 g total protein 25-30 mL/kg 925-1110 total fluid mLs NUTRITION DIAGNOSIS: * Increased kcal/pro needs R/T for wt gain, catabolic dx as evidenced by severely underweight status w/ BMI 14.9, pt @ 74% IBW, dx of metastatic breast cancer. * Swallowing difficulty R/T dysphagia as evidenced by PEG dep, TF held, admitted w/ c/o coffee ground emesis. CURRENT TF:Vital Af 1.2 @60 - ON hold ENTERAL NUTRITION RECOMMENDATIONS: Osmolite 1.5 @ 40ml/hr x 24 hrs to provide 960ml, 1440kcal, 60g prot, 732ml free water * As medically appropriate, initiate Osmolite 1.5 @ 20ml/hr x 6 hrs, advance 10ml q 4-6 hrs as tolerated to goal rate * HOB over 30 degrees/ water flush per MD. ADDITIONAL RECOMMENDATIONS: * Calibrated bedscale wt for accurate CBW * Per SNF, pt's HT=62", WT=81lbs (obtained end of October) * Weekly wt monitoring given underweight status * Monitor lytes, replete as needed . .
[2019-01-22 12:00] VITALS: BP 109/67
--- NOTE | 2019-01-22 12:05 | NUR ---
HAND-OFF: Report given to Sandra BULLARD. Pt remains stable.
--- NOTE | 2019-01-22 12:10 | NUR ---
NURSE NOTES: received pt transfered from Tele to MS room 402-2, in contact isolation for Hx VRE. In bed, awake, non verbal, no signs of distress noted. Had GT received feeding VitaL AF 1.2 at 60cc/hr. Also receives IVF D5 1/2NS + 20 mEq KCl at 100cc/hr through LFA access, no sign of infiltration noted. Skin is intact, pt is BLE and BUE contracted, tries to scratch staff when touched. Will continue to monitorb pt and follow up with the POC.
[2019-01-22 16:00] VITALS: BP 99/65
[2019-01-22 20:00] VITALS: BP 93/61
--- NOTE | 2019-01-22 20:01 | NUR ---
HAND-OFF: Report given to JUAN MIGUEL Betts.
--- NOTE | 2019-01-22 20:02 | NUR ---
NURSE NOTES: Report received from JUAN MIGUEL Flores. Pt is resting awake and confused in bed in stable condition. On room air and No signs of distress noted. IV site is L FA #20g and is asymptomatic, patent and running IV D5 1/2NS with [id number] at 100cc/hr. Bed is placed in lowest position, locked, side rails up x3, and zone 2 bed alarm on. Call light and side table placed within reach. Pt remains NPO per MD John. G-tube site and dressing are dry and intact. Pt scratched me when I attempted to see if she was wet. Will continue to monitor patient.
--- NOTE | 2019-01-22 21:40 | NUR ---
NURSE NOTES: Pt was found chewing on her IV tubing as wellas her G tubing and both were leaking. Changed tubing and will continue to monitor.
--- NOTE | 2019-01-22 23:20 | NUR ---
NURSE NOTES: Paged and spoke to Dr Nelson (covering for Dr Ramírez). Informed MD that patient is biting on IV tubing and has created leaks in both IV tubing and GTubing. Received order to administer ativan q6h prn agitation. Will submit new order to Rx and administer as ordered Will continue to monitor patient.
[2019-01-23] VITALS: BP 120/80
[2019-01-23] MEDS: LORazepam Inj 2mg/ml 1ml IV PRN ×3 (00:04→21:46)
--- NOTE | 2019-01-23 00:15 | NUR ---
NURSE NOTES: Ativan given and pt is less agitated, resting at this time
[2019-01-23 04:00] VITALS: BP 114/73
--- NOTE | 2019-01-23 06:59 | General Progress Note ---
Assessment/Plan Assessment/Plan: 1. Esophagitis. 2. 4 cm hiatal hernia. 3. Question of breast cancer, which resolved apparently on its own. 4. Dysphagia with G-tube. 5. Dementia. 6. Psychiatric disorder, schizophrenia. GTF ppi reflux measures given stable H&H and recent EGD will hold repeat EGD at this time Subjective ROS Limited/Unobtainable: No Allergies: Coded Allergies: PENICILLINS (Verified Allergy, Unknown, 02/17/18) SULFA (SULFONAMIDE ANTIBIOTICS) (Unverified Allergy, Unknown, 10/02/18) Uncoded Allergies: SULFA (Allergy, Unknown, 02/17/18) Objective Last 24 Hour Vital Signs Date Time Temp Pulse Resp B/P (MAP) Pulse Ox O2 Delivery O2 Flow Rate FiO2 01/23/19 04:00 97.6 68 18 114/73 (87) 95 01/23/19 00:00 98.0 72 16 120/80 (93) 98 01/22/19 21:00 Room Air 01/22/19 20:00 98.0 89 18 93/61 (72) 98 01/22/19 16:00 97.9 60 18 99/65 (76) 97 01/22/19 12:00 97.7 79 18 109/67 (81) 98 01/22/19 09:00 Room Air 01/22/19 08:00 97.8 81 18 117/74 (88) 99 01/22/19 08:00 81 Intake and Output 01/22/19 01/23/19 19:00 07:00 Intake Total 1520 ml Balance 1520 ml Intake Free Water 300 ml IV Total 800 ml Tube Feeding 420 ml # Voids 2 3 # Bowel Movements 2 Height (Feet): 5 Height (Inches): 2.00 Weight (Pounds): 130 General Appearance: no apparent distress Neck: supple Cardiovascular: normal rate Respiratory/Chest: decreased breath sounds Abdomen: normal bowel sounds, non tender, soft Extremities: non-tender Hugo John MD Jan 23, 2019 06:59
--- NOTE | 2019-01-23 07:40 | NUR ---
HAND-OFF: Report given to JUAN MIGUEL Echeverria.
[2019-01-23 08:00] VITALS: BP 121/70
--- NOTE | 2019-01-23 08:17 | NUR ---
NURSE NOTES: HANDOFF RECEIVED FROM JUAN MIGUEL YU. PATIENT SLEEPING IN BED, BED IN LOCKED AND LOWEST POSITION, CALL LIGHT IN REACH.
[2019-01-23 08:26] LABS: BASOPHILS % (AUTO) 0.8 % (0.0-2.0); EOSINOPHILS % (AUTO) 2.2 % (0.0-3.0); HEMATOCRIT 36.8 % (37.0-47.0); HEMOGLOBIN 12.9 G/DL (12.0-16.0); LYMPHOCYTES % (AUTO) 24.7 % (20.0-45.0); MEAN CORPUSCULAR VOLUME 91 FL (80-99); MONOCYTES % (AUTO) 7.4 % (1.0-10.0); NEUTROPHILS % (AUTO) 64.9 % (45.0-75.0); PLATELET COUNT 262 K/UL (150-450); RED BLOOD COUNT 4.03 M/UL (4.20-5.40); RED CELL DISTRIBUTION WIDTH 11.5 % (11.6-14.8)
[2019-01-23 08:57] LABS: ALANINE AMINOTRANSFERASE 19 U/L (12-78); ALBUMIN 2.8 G/DL (3.4-5.0); ALKALINE PHOSPHATASE 76 U/L (46-116); ANION GAP 8 mmol/L (5-15); ASPARTATE AMINO TRANSFERASE 17 U/L (15-37); BILIRUBIN,TOTAL 0.4 MG/DL (0.2-1.0); BLOOD UREA NITROGEN 15 mg/dL (7-18); CALCIUM 8.5 MG/DL (8.5-10.1); CARBON DIOXIDE 26 MMOL/L (21-32); CHLORIDE 106 MMOL/L (98-107); CREATININE 0.6 MG/DL (0.55-1.30); POTASSIUM 3.9 MMOL/L (3.5-5.1); SODIUM 140 MMOL/L (136-145)
--- NOTE | 2019-01-23 10:43 | NUR ---
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 HIATAL HERNIA VS: BP 93/61, P 60, T 97.6, RR 16, SpO2 95 RBC 4.03, Hct 36.8, GLUCOSE 116, Mag 1.7 IS:PREVACID 30mg LORAZEPAM 1mg IV D5/NS x1L IV MED/SURG STATUS
[2019-01-23 12:00] VITALS: BP 131/61
[2019-01-23] MEDS: D5 1/2NS w/KCl 20mEq 1,000 ML IV SCH (12:03)
--- NOTE | 2019-01-23 14:35 | NUR ---
SWALLOW/SPEECH THERAPY NOTE: REFERRED BY DR HIRSCH FOR SWALLOW EVAL (DR RODRIGUEZ IS PRIMARY MD) SEE FULL EVAL IN ST CARE ACTIVITY SECTION. DYSPHAGIA RISK FACTORS FOR THIS 78 Y.O.F.: ACUTE ISSUES: GIB, VOMITING, ESOPHAGITIS, 4CC HIATAL HERNIA, LUNGS CLEAR. H/O OROPHARYNGEAL DYSPHAGIA, FTT, SEVERE PROTEIN-CALORIE MALNUTRITION, OBS, GERD, DEMENTIA W/BEHAVIORAL DISTURBANCE, CACHEXIA,PARANOID SCHIZO AND PSEUDOBULBAR AFFECT, BIPOLAR AND ANXIETY, HTN, S/P MET BREAST CANCER,ADENOCARCINOMA, FUNCTIONAL QUADRIPLEGIA. POULTRY PROCESSOR FROM SNF NOW ? ANY ORAL GRAT BUT HAD GT FEEDINGS. POULTRY PROCESSOR ON GT FEEDINGS ? ORAL GRAT OF ICE CREAM WHEN LAST SEEN IN JANUARY 2018 PRIOR TO THAT ADMIT. SWALLOW EVAL AT THAT TIME REVEALED RISK FOR DYSPHAGIA AND SILENT ASPIRATION SO PT CONTINUED WITH PEG FEEDINGS UNTIL MOD BARIUM SWALLOW STUDY. PATIENT D/C PRIOR TO STUDY COMPLETED. PER RN, PT CHEWED ON GT WHICH SHE HAS NOW. ON JEVITY NOW. ALERT BUT MOSTLY NONVERBAL. DID SAYS SOME WORDS BUT DIFFICULT TO UNDERSTAND. ROOM AIR. INITIAL IMPRESSIONS: RISK FOR PERSISTENT OR WORSENED OROPHARYNGEAL DYSPHAGIA RISK FOR SILENT ASPIRATION AND POOR INTAKE (WAS FTT) NO NEED FOR ORAL SUCTION GOOD DENTITION, FUNCTIONAL LIP CLOSURE WITH TSP, SLOWER TONGUE MOVEMENTS SOME TREMOR, POOR TO FAIR TONGUE STRENGTH BILATERALLY. PO TRIALS WITH TSP NECTAR THICK WATER, MILD INCREASE IN OROPHARYNGEAL TRANSIT TIMES (3 SECONDS) WITH FAIR HYOLARYNGEAL EXCURSION BUT NO OVERT S/S OF ASPIRATION, NO ORAL RESIDUE, HAS SILENT ASP RISK. HOLD ON MORE TRIAL UNTIL MBSS RECOMMENDATIONS: CONTINUE WITH PEG FEEDINGS AND ORAL CARE INCLUDES BRUSHING TEETH. COMPLETE MOD BARIUM SWALLOW STUDY IP OR OP IF DC TO FURTHER ASSESS SWALLOW, DETERMINE SILENT ASP RISK/ETIOLOGY, AND ATTEMPT TRIAL TX TECH SKILLED DYSPHAGIA TX/MANAGEMENT COG-COM EVAL/TX FOR COM TIPS D/W RN AND PATIENT EDUCATED/TRAINED STAFF IN POSTED ORAL CARE Addendum: 01/23/19 at 1439 by KEMI AGGARWAL PER DR HIRSCH, PT ASKING FOR WATER. HE IS OK WITH MOD BARIUM SWALLOW STUDY FOR ORAL GRAT.
[2019-01-23 16:00] VITALS: BP 122/64
--- NOTE | 2019-01-23 18:03 | General Progress Note ---
Assessment/Plan Assessment/Plan: Acute Gastro-esophagitis resolved. DC IVF. Check Labs. Subjective Allergies: Coded Allergies: PENICILLINS (Verified Allergy, Unknown, 02/17/18) SULFA (SULFONAMIDE ANTIBIOTICS) (Unverified Allergy, Unknown, 10/02/18) Uncoded Allergies: SULFA (Allergy, Unknown, 02/17/18) Subjective Nonverbal. no c/o Objective Last 24 Hour Vital Signs Date Time Temp Pulse Resp B/P (MAP) Pulse Ox O2 Delivery O2 Flow Rate FiO2 01/23/19 16:00 97.6 59 20 122/64 (83) 98 01/23/19 12:00 98.6 61 18 131/61 (84) 100 01/23/19 09:00 Room Air 01/23/19 08:00 97.9 80 20 121/70 (87) 95 01/23/19 04:00 97.6 68 18 114/73 (87) 95 01/23/19 00:00 98.0 72 16 120/80 (93) 98 01/22/19 21:00 Room Air 01/22/19 20:00 98.0 89 18 93/61 (72) 98 Intake and Output 01/22/19 01/23/19 19:00 07:00 Intake Total 1520 ml Balance 1520 ml Free Water 300 ml IV Total 800 ml Tube Feeding 420 ml # Voids 2 3 # Bowel Movements 2 Laboratory Tests 01/23/19 06:51: White Blood Count 7.0, Red Blood Count 4.03L, Hemoglobin 12.9, Hematocrit 36.8L , Mean Corpuscular Volume 91, Mean Corpuscular Hemoglobin 32.0H, Mean Corpuscular Hemoglobin Concent 35.0, Red Cell Distribution Width 11.5L, Platelet Count 262, Mean Platelet Volume 7.0, Neutrophils (%) (Auto) 64.9, Lymphocytes (%) (Auto) 24.7, Monocytes (%) (Auto) 7.4, Eosinophils (%) (Auto) 2.2, Basophils (%) (Auto) 0.8, Sodium Level 140, Potassium Level 3.9, Chloride Level 106, Carbon Dioxide Level 26, Anion Gap 8, Blood Urea Nitrogen 15, Creatinine 0.6, Estimat Glomerular Filtration Rate , Glucose Level 116H, Calcium Level 8.5, Magnesium Level 1.7L, Total Bilirubin 0.4, Aspartate Amino Transf (AST/SGOT) 17, Alanine Aminotransferase (ALT/SGPT) 19, Alkaline Phosphatase 76, Total Protein 5.5L, Albumin 2.8L, Globulin 2.7, Albumin/ Globulin Ratio 1.0 Height (Feet): 5 Height (Inches): 2.00 Weight (Pounds): 130 Objective CV RR Lungs CTA Abd SNT. BS + PEG OK E No CCE Kai Ramírez MD Jan 23, 2019 18:03
--- NOTE | 2019-01-23 19:29 | NUR ---
HAND-OFF: Report given to Amy BULLARD.
--- NOTE | 2019-01-23 19:50 | NUR ---
NURSE NOTES: Received report from Sujey RN. Patient in bed resting. No respiratory distress noted. HOB is elevated and bed is in lowest position. 3 side rails are up and call light is within reach. IV intact. Will continue to monitor.
[2019-01-23 20:00] VITALS: BP 112/77
[2019-01-24] VITALS: BP 123/59
[2019-01-24] MEDS ORDERED: DiphenhydrAMINE 50mg/ml Inj IVP PRN
--- NOTE | 2019-01-24 00:10 | NUR ---
NURSE NOTES: Patient was very agitated and scratching. Ativan was given as ordered but it didn't work on her. She bit IVF tubings x2 and feeding tube. Foul smell puke-like liquid on the linens and seen eating by patient. Bedside teaching and diversional activities done but didn't work. Cleaned pt. Restraints applied. Dr. Ramírez made aware and obtained orders for restraints, benadryl and zofran. Will continue to monitor pt.
[2019-01-24 04:00] VITALS: BP 134/60
[2019-01-24 06:31] LABS: BASOPHILS % (AUTO) 0.9 % (0.0-2.0); EOSINOPHILS % (AUTO) 3.8 % (0.0-3.0); HEMATOCRIT 36.5 % (37.0-47.0); HEMOGLOBIN 12.9 G/DL (12.0-16.0); MEAN CORPUSCULAR VOLUME 91 FL (80-99); MONOCYTES % (AUTO) 8.5 % (1.0-10.0); NEUTROPHILS % (AUTO) 56.8 % (45.0-75.0); PLATELET COUNT 251 K/UL (150-450); RED CELL DISTRIBUTION WIDTH 11.7 % (11.6-14.8); WHITE BLOOD COUNT 7.3 K/UL (4.8-10.8)
[2019-01-24] MEDS: LORazepam Inj 2mg/ml 1ml IV PRN (06:31)
[2019-01-24 06:39] LABS: ANION GAP 9 mmol/L (5-15); BLOOD UREA NITROGEN 16 mg/dL (7-18); CALCIUM 8.4 MG/DL (8.5-10.1); CARBON DIOXIDE 26 MMOL/L (21-32); CHLORIDE 111 MMOL/L (98-107); CREATININE 0.7 MG/DL (0.55-1.30); POTASSIUM 4.4 MMOL/L (3.5-5.1); SODIUM 145 MMOL/L (136-145)
--- NOTE | 2019-01-24 07:19 | NUR ---
HAND-OFF: Report given to JUAN MIGUEL Echeverria.
--- NOTE | 2019-01-24 07:30 | NUR ---
NURSE NOTES: REPORT RECEIVED FROM DONELL BULLARD. PATIENT SLEEPING, IV SITE CLEAN, DRY AND INTACT. BED IN LOCKED AND LOWEST POSITION.
[2019-01-24 08:00] VITALS: BP 99/57
--- NOTE | 2019-01-24 11:14 | General Progress Note ---
Assessment/Plan Assessment/Plan: 1. Esophagitis. 2. 4 cm hiatal hernia. 3. Question of breast cancer, which resolved apparently on its own. 4. Dysphagia with G-tube. 5. Dementia. 6. Psychiatric disorder, schizophrenia. GTF ppi reflux measures given stable H&H and recent EGD will hold repeat EGD at this time neg stool ob Subjective ROS Limited/Unobtainable: No Allergies: Coded Allergies: PENICILLINS (Verified Allergy, Unknown, 02/17/18) SULFA (SULFONAMIDE ANTIBIOTICS) (Unverified Allergy, Unknown, 10/02/18) Uncoded Allergies: SULFA (Allergy, Unknown, 02/17/18) Objective Last 24 Hour Vital Signs Date Time Temp Pulse Resp B/P (MAP) Pulse Ox O2 Delivery O2 Flow Rate FiO2 01/24/19 09:00 Room Air 01/24/19 08:00 97.6 69 18 99/57 (71) 99 01/24/19 04:00 96.9 66 19 134/60 (84) 98 01/24/19 00:00 97.5 66 18 123/59 (80) 98 01/23/19 21:00 Room Air 01/23/19 20:00 98.0 97 18 112/77 (89) 98 01/23/19 16:00 97.6 59 20 122/64 (83) 98 01/23/19 12:00 98.6 61 18 131/61 (84) 100 Intake and Output 01/23/19 01/24/19 19:00 07:00 Intake Total 180 ml 1060 ml Balance 180 ml 1060 ml Intake Oral 120 ml IV Total 400 ml Tube Feeding 60 ml 660 ml # Voids 3 # Bowel Movements 1 1 Laboratory Tests 01/24/19 05:20: White Blood Count 7.3, Red Blood Count 4.00L, Hemoglobin 12.9, Hematocrit 36.5L , Mean Corpuscular Volume 91, Mean Corpuscular Hemoglobin 32.3H, Mean Corpuscular Hemoglobin Concent 35.3, Red Cell Distribution Width 11.7, Platelet Count 251, Mean Platelet Volume 7.6, Neutrophils (%) (Auto) 56.8, Lymphocytes (% ) (Auto) 30.0, Monocytes (%) (Auto) 8.5, Eosinophils (%) (Auto) 3.8H, Basophils (%) (Auto) 0.9, Sodium Level 145, Potassium Level 4.4, Chloride Level 111H, Carbon Dioxide Level 26, Anion Gap 9, Blood Urea Nitrogen 16, Creatinine 0.7, Estimat Glomerular Filtration Rate , Glucose Level 101, Calcium Level 8.4L, Magnesium Level 2.9H Height (Feet): 5 Height (Inches): 2.00 Weight (Pounds): 130 General Appearance: no apparent distress EENT: normal ENT inspection Neck: supple Cardiovascular: normal rate Respiratory/Chest: lungs clear Abdomen: normal bowel sounds, non tender, soft Extremities: non-tender Hugo John MD Jan 24, 2019 11:14
[2019-01-24 12:00] VITALS: BP 101/59
--- NOTE | 2019-01-24 12:36 | NUR ---
SWALLOW/SPEECH THERAPY NOTE: SWALLOW STATUS: NOT ALERT IN MORNING NOR AFTERNOON FOR MOD BARIUM SWALLOW STUDY SHE WAS GIVEN ATIVAN SINCE SHE WAS AGITATED. PLAN: MBSS TOMORROW IF ALERT.
--- NOTE | 2019-01-24 15:47 | NUR ---
RD ASSESSMENT & RECOMMENDATIONS SEE CARE ACTIVITY FOR COMPLETE ASSESSMENT DAILY ESTIMATED NEEDS: Needs based on Severely underweight, metastatic CA/ 37kg 35-40 kcals/kg 3068-9156 total kcals 1-2 g protein/kg 37-74 g total protein 25-30 mL/kg 925-1110 total fluid mLs NUTRITION DIAGNOSIS: * Increased kcal/pro needs R/T for wt gain, catabolic dx as evidenced by severely underweight status w/ BMI 14.9, pt @ 74% IBW, dx of metastatic breast cancer. * Swallowing difficulty R/T dysphagia as evidenced by PEG dep, pending MBSS for oral grat. CURRENT TF:Vital Af 1.2 @ 60 ml/hr x 24 hrs PO DIET RECOMMENDATIONS: FOR ORAL GRAT: regular/ texture per SCHOOL COUNSELLOR ENTERAL NUTRITION RECOMMENDATIONS: Jevity 1.2 @ 50ml/hr x 24 hrs to provide 1200ml, 1440kcal, 67g prot, 968ml free water * Rec TF change to Jevity 1.2: elemental TF formula is not indicated. * Initiate Jevity 1.2 @ 20ml/hr x 6 hrs, advance 10ml q 4-6 hrs as tolerated to goal rate. * HOB over 30 degrees/ water flush 100ml q 8 hrs ADDITIONAL RECOMMENDATIONS: * Calibrated bedscale wt for accurate CBW * Per SNF, pt's HT=62", WT=81lbs (obtained end of October) * Weekly wt monitoring given underweight status * Monitor lytes, replete as needed . .
[2019-01-24 16:00] VITALS: BP 105/65
--- NOTE | 2019-01-24 16:26 | General Progress Note ---
Assessment/Plan Assessment/Plan: Acute Gastro-esophagitis resolved. DC IVF. Check Labs. OK. DC to SNF. Subjective Allergies: Coded Allergies: PENICILLINS (Verified Allergy, Unknown, 02/17/18) SULFA (SULFONAMIDE ANTIBIOTICS) (Unverified Allergy, Unknown, 10/02/18) Uncoded Allergies: SULFA (Allergy, Unknown, 02/17/18) Subjective Nonverbal. No new c/o Objective Last 24 Hour Vital Signs Date Time Temp Pulse Resp B/P (MAP) Pulse Ox O2 Delivery O2 Flow Rate FiO2 01/24/19 12:00 98.2 72 18 101/59 (73) 99 01/24/19 09:00 Room Air 01/24/19 08:00 97.6 69 18 99/57 (71) 99 01/24/19 04:00 96.9 66 19 134/60 (84) 98 01/24/19 00:00 97.5 66 18 123/59 (80) 98 01/23/19 21:00 Room Air 01/23/19 20:00 98.0 97 18 112/77 (89) 98 Intake and Output 01/23/19 01/24/19 19:00 07:00 Intake Total 180 ml 1060 ml Balance 180 ml 1060 ml Intake Oral 120 ml IV Total 400 ml Tube Feeding 60 ml 660 ml # Voids 3 # Bowel Movements 1 1 Laboratory Tests 01/24/19 05:20: White Blood Count 7.3, Red Blood Count 4.00L, Hemoglobin 12.9, Hematocrit 36.5L , Mean Corpuscular Volume 91, Mean Corpuscular Hemoglobin 32.3H, Mean Corpuscular Hemoglobin Concent 35.3, Red Cell Distribution Width 11.7, Platelet Count 251, Mean Platelet Volume 7.6, Neutrophils (%) (Auto) 56.8, Lymphocytes (% ) (Auto) 30.0, Monocytes (%) (Auto) 8.5, Eosinophils (%) (Auto) 3.8H, Basophils (%) (Auto) 0.9, Sodium Level 145, Potassium Level 4.4, Chloride Level 111H, Carbon Dioxide Level 26, Anion Gap 9, Blood Urea Nitrogen 16, Creatinine 0.7, Estimat Glomerular Filtration Rate , Glucose Level 101, Calcium Level 8.4L, Magnesium Level 2.9H Height (Feet): 5 Height (Inches): 2.00 Weight (Pounds): 130 Objective CV RR Lungs CTA Abd SNT. BS + PEG OK E No CCE Kai Ramírez MD Jan 24, 2019 16:26
[2019-01-24] MEDS ORDERED: ZOFRAN 4 MG4 MG/2 ML IVP (16:28)
--- NOTE | 2019-01-24 16:53 | NUR ---
*-* DISCHARGE PLANNED *-* PATIENT IS DISCHARGED BACK TO: [facility] ROOM# 23-B LONG TERM S/W YORDY:[phone] FOR NURSE TO NURSE REPORT [facility] HAS BEEN ARRANGED FOR [facility]EWELRY SALES AT 1900 S/W BISI *-* NO FAMILY TO NOTIFY *-*
--- NOTE | 2019-01-24 18:45 | NUR ---
NURSE NOTES: PATIENT DISCHARGE ORDERS. CONTACTED [facility] TO GIVE REPORT TO STAFF.
--- NOTE | 2019-01-24 19:26 | NUR ---
HAND-OFF: Report given to JUAN MIGUEL Garcia.
--- NOTE | 2019-01-24 19:30 | NUR ---
NURSE NOTES: RECEIVED PT FROM JUAN MIGUEL GALE AND JUAN MIGUEL SERRA. PT IS AWAKE, AAOX1, ON ROOM AIR, NO ACUTE DISTRESS NOTED. 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 CALLED [facility] TO FOLLOW UP, SPOKE TO MARC, AMBULANCE WILL BE HERE AT 9 PM. BED IS LOCKED AT THE LOWEST POSITION, BED ALARM ACTIVE, SIDE RAILS UP X2, AND CALL LIGHT IS WITHIN REACH. WILL CONTINUE TO MONITOR.
--- NOTE | 2019-01-24 21:12 | NUR ---
NURSE NOTES: EMS ARRIVED. REPORT GIVEN TO EMS BARI. PT IS IN STABLE CONDITION.
--- NOTE | 2019-01-24 21:19 | NUR ---
NURSE NOTES: PT WAS SAFELY TRANSFER BY EMS ON [facility]. PT IS GOING TO [facility] ROOM# 23-B. NO BELONGINGS.
--- NOTE | 2019-01-25 13:29 | NUR ---
DISCHARGE SWALLOW/SPEECH THERAPY SUMMARY: PATIENT SEEN FOR DYSPHAGIA, SEE SWALLOW EVAL REPORT. VIDEOSWALLOW STUDY RECOMMENDED NOT COMPLETED DUE TO SCHEDULE CONFLICTS AND PATIENT WAS NOT ALERT. PATIENT HAS A HIGH RISK FOR SILENT ASPIRATION. GOALS MET FOR STAFF EDUCATED/TRAINED IN ORAL CARE PLAN: CONTINUE WITH NONORAL FEEDINGS AND ORAL CARE FOR NOW. F/UP WITH SNF HUMANITIES DIVISION CHAIR FOR SKILLED DYSPHAGIA MANAGEMENT AND TX AND F/UP OUTPATIENT MOD BARIUM SWALLOW STUDY.
--- NOTE | 2019-01-26 12:05 | Discharge Summary ---
Discharge Summary Discharge Summary _ Chart summary DATE OF ADMISSION: 01/20/2019 DATE OF DISCHARGE: 01/24/2019 DISCHARGED BY: Dr. Ramírez REASON FOR ADMISSION: 78 years old female , resident of shelter facility, with past medical history of hypertension, dysphagia, G-tube, GERD, history of breast cancer , apparently resolved, adenocarcinoma , presented with coffee-ground emesis. Patient nonverbal at baseline, and was unable to provide any information. Upon evaluation patient was tachycardic , otherwise stable vital signs . Laboratory work-up revealed WBC 10.0, hemoglobin 16.6 , hematocrit 49.7 sodium 147. Stable renal parameters. Stable LFT. Urinalysis revealed +2 protein , no evidence of UTI. EKG revealed sinus rhythm, no acute ischemic changes. Patient subsequently admitted for further management. CONSULTANTS: GI specialist Dr. John [facility] COURSE: Patient admitted to medical surgical floor. Patient had episode of coffee-ground emesis at n the emergency department , but hemoglobin and hematocrit remained stable. Patient started on IV fluids and kept n.p.o. GI consult was requested. GI specialist seen and evaluated patient. Patient apparently had prior history of esophagitis. Patient started on the GI prophylaxis with PPI. Tube feeding slowly started. Strict aspiration precaution maintained. Hemoglobin and hematocrit were closely monitored with goal to keep hemoglobin above 7. Prior to discharge hemoglobin 12.9, hematocrit 36.5, remained stable. Stool for occult blood was negative. Patient was able to tolerate tube feeding. Antiemetic were on board as needed. GI specialist recommended to hold on GI procedure s, given xiang hemoglobin and hematocrit stable. Patient clinically stabilized. Acute gastroesophagitis resolve 9 d. IV fluids discontinued . Laboratory work appeared to be stable. Patient was ready for transfer back to [facility] for continuation of care FINAL DIAGNOSES: Acute gastroesophagitis Coffee-ground emesis , likely due to acute gastroesophagitis - resolved Dysphagia , G-tube Question of breast cancer apparently resolved on its own Advanced cachexia Organic brain syndrome Psychosis Dementia DISCHARGE MEDICATIONS: See Medication Reconciliation list. DISCHARGE INSTRUCTIONS: Patient was discharged to the shelter facility. Follow up with medical doctor at the facility. I have been assigned to dictate discharge summary for this account. I was not involved in the patient's management. Loulou Agustin NP Jan 26, 2019 12:05
== END 2019-01-24 21:19 | DRG 392 ==
LOC: EDBD 11:39 → EDUNIT# 11:39 → EMR 12:15 → 2E 14:40 → EDBEDREQ 15:16 → 4E 01-22 12:00
DX: K20.9 Esophagitis, unspecified (principal); E87.0 Hyperosmolality and hypernatremia; R64 Cachexia; Z43.1 Encounter for attention to gastrostomy; K92.0 Hematemesis; F09 Unspecified mental disorder due to known physiological condition; Z88.0 Allergy status to penicillin; Z85.3 Personal history of malignant neoplasm of breast; I10 Essential (primary) hypertension; K21.9 Gastro-esophageal reflux disease without esophagitis; R13.10 Dysphagia, unspecified; K44.9 Diaphragmatic hernia without obstruction or gangrene; F20.9 Schizophrenia, unspecified; Z88.2 Allergy status to sulfonamides; G30.9 Alzheimer's disease, unspecified; F02.80 Dementia in other diseases classified elsewhere, unspecified severity, without behavioral disturbance, psychotic disturbance, mood disturbance, and anxiety
CPT/HCPCS: 36415; 80048; 80053; 81003; 82270; 82962; 83735; 85025; 85610; 85730; 86850; 86900; 86901; 86920; 87081; 93005; 96361; 96374; 99285; J2405